=== PATIENT | male | born 1965 ===

== ENCOUNTER 2020-07-27 06:29 | Outpatient (REF) | payer OTHER, SELFPAY ==
[2020-07-27 12:56] LABS: Alanine Aminotransferase 30 U/L (0-40); Anion Gap 15 (12-20); Aspartate Amino Transferase 25 U/L (5-37); Blood Urea Nitrogen 14 mg/dL (9-16); Calcium 9.5 mg/dL (8.4-10.2); Carbon Dioxide 28 mmol/L (22-29); Chloride 103 mmol/L (96-108); Cholesterol 111 mg/dL; Estimated Glomerular Filt Rate > 60; Glucose Fasting 108 mg/dL (60-99); HDL Cholesterol 45 mg/dL; LDL Cholesterol Calculated 53 mg/dl; Potassium 4.5 mmol/l (3.3-5.1); Sodium 141 mmol/L (135-145); Triglycerides 68 mg/dL
[2020-07-31 19:18] LABS: Calcium, Ionized 5.3 mg/dL (4.8-5.6)
== END 2020-07-27 06:30 | disposition home or self-care (01) ==
LOC: HO.HMGCLDS 06:29
PROVIDERS: PCP Internal Medicine; Visit Provider Internal Medicine
DX: I25.10 Atherosclerotic heart disease of native coronary artery without angina pectoris (principal); Z00.01 Encounter for general adult medical examination with abnormal findings; I10 Essential (primary) hypertension; E11.9 Type 2 diabetes mellitus without complications; E83.52 Hypercalcemia
CPT/HCPCS: 80048; 80061; 82330; 84450; 84460

== ENCOUNTER → 2020-08-11 09:20 | Outpatient (BNVA) | payer OTHER, SELFPAY | PROVIDERS: PCP Internal Medicine; Referring Provider Internal Medicine; Visit Provider Hospitalist | DX: J44.9 Chronic obstructive pulmonary disease, unspecified (principal); R91.1 Solitary pulmonary nodule; K21.9 Gastro-esophageal reflux disease without esophagitis; F51.01 Primary insomnia; Z79.899 Other long term (current) drug therapy | CPT/HCPCS: 99212 ==

== ENCOUNTER 2020-11-21 06:45 | Outpatient (REF) | payer OTHER, SELFPAY ==
[2020-11-21 07:51] LABS: Alanine Aminotransferase 18 U/L (0-40); Anion Gap 11 (12-20); Aspartate Amino Transferase 19 U/L (5-37); Blood Urea Nitrogen 14 mg/dL (9-16); Calcium 9.6 mg/dL (8.4-10.2); Carbon Dioxide 27 mmol/L (22-29); Chloride 105 mmol/L (96-108); Cholesterol 132 mg/dL; Estimated Glomerular Filt Rate > 60; Glucose Fasting 106 mg/dL (60-99); HDL Cholesterol 50 mg/dL; LDL Cholesterol Calculated 68 mg/dl; Potassium 4.3 mmol/L (3.3-5.1); Sodium 139 mmol/L (135-145); Triglycerides 70 mg/dL
[2020-11-21 07:52] LABS: Creatinine Urine 201.67 mg/dL; Microalbum/Creatinine Ratio Ur 22.3 ug/mg cr
[2020-11-21 08:51] LABS: Estimated Average Glucose 131 mg/dL; Hemoglobin A1c % 6.2 %
== END 2020-11-21 06:46 | disposition home or self-care (01) ==
LOC: HO.LAB 06:45
PROVIDERS: PCP Internal Medicine; Visit Provider Internal Medicine
DX: E78.5 Hyperlipidemia, unspecified (principal); E11.9 Type 2 diabetes mellitus without complications; I10 Essential (primary) hypertension
CPT/HCPCS: 36415; 80048; 80061; 82043; 83036; 84450; 84460

== ENCOUNTER 2020-11-27 06:23 | Outpatient (REF) | payer OTHER, SELFPAY ==
--- NOTE | 2020-11-27 06:45 | ECG_ITS ---
Test Reason : CHRONIC SIMPLE BRONC Blood Pressure : / mmHG Vent. Rate : 059 BPM Atrial Rate : 059 BPM P-R Int : 128 ms QRS Dur : 114 ms QT Int : 408 ms P-R-T Axes : 050 -14 030 degrees QTc Int : 403 ms Sinus bradycardia Incomplete right bundle branch block Borderline ECG When compared with ECG of 31-DEC-2016 06:38, No significant change was found Referred By: Chloe Garrison Electronically Signed By:Guillaume Rodas
[2020-11-27 07:07] LABS: MANUAL DIFF FLAG NO
[2020-11-27 07:14] LABS: Basophils Absolute Auto 0.1 X10*3/uL (0.0-0.2); Basophils Percent Auto 0.7 % (0-2); Eosinophils Absolute Auto 0.3 X10*3/uL (0.0-0.4); Eosinophils Percent Auto 4.2 % (0-4); Hematocrit 45.4 % (42-52); Hemoglobin 14.9 g/dl (14.0-18.0); Imm Gran Abs Auto 0.02 X10*3/uL (0.00-0.03); Imm Gran Pct Auto 0.3 % (0.0-0.4); Lymphocytes Absolute Auto 2.5 X10*3/uL (1.2-4.9); Lymphocytes Percent Auto 33.6 % (20-40); Mean Corpuscular HGB Conc 32.8 g/dl (31.0-36.0); Mean Corpuscular Hemoglobin 29.7 pg (27.0-33.0); Mean Corpuscular Volume 90.4 fL (80-98); Mean Platelet Volume 11.5 fL (9.4-12.4); Monocytes Absolute Auto 0.6 X10*3/uL (0.1-1.2); Monocytes Percent Auto 8.4 % (2-11); Neutrophils Absolute Auto 3.9 X10*3/uL (2.0-8.3); Neutrophils Percent Auto 52.8 % (45-73); Platelet Count 225 X10*3/uL (160-400); Red Blood Count 5.02 X10*6/uL (4.60-5.80); Red Cell Distribution Width 13.3 % (11.0-16.0); White Blood Count 7.3 X10*3/uL (4.8-10.8)
[2020-11-27 07:23] LABS: INTERNATIONAL NORM RATIO 0.9 (0.9-1.1); Prothrombin Time 10.6 SEC (10.8-13.0)
== END 2020-11-27 06:24 | disposition home or self-care (01) ==
LOC: HO.LAB 06:23
PROVIDERS: PCP Internal Medicine; Visit Provider Internal Medicine
DX: Z01.818 Encounter for other preprocedural examination (principal); J41.0 Simple chronic bronchitis; I25.10 Atherosclerotic heart disease of native coronary artery without angina pectoris; E11.9 Type 2 diabetes mellitus without complications; I10 Essential (primary) hypertension
CPT/HCPCS: 36415; 85025; 85610; 93005

== ENCOUNTER → 2021-01-19 08:48 | Outpatient (BNVA) | payer OTHER, SELFPAY | PROVIDERS: PCP Internal Medicine; Visit Provider Hospitalist | DX: J41.0 Simple chronic bronchitis (principal); R91.8 Other nonspecific abnormal finding of lung field; F51.01 Primary insomnia; K21.9 Gastro-esophageal reflux disease without esophagitis | CPT/HCPCS: 99212 ==

== ENCOUNTER 2021-01-24 13:13 | Inpatient (IN) | payer OTHER, SELFPAY ==
--- NOTE | ~2021-01-24 | CT_ITS ---
EXAMINATION: CT ABDOMEN AND PELVIS WITHOUT CONTRAST CLINICAL INFORMATION: Upper abdominal pain, acute renal failure COMPARISON: None TECHNIQUE: Multidetector volumetric imaging was performed from the superior aspect of the liver through the pubic symphysis. Sagittal and coronal reformatted images were obtained on the technologist's workstation. This CT examination was performed using dose optimization techniques as appropriate, variously including the following: *Automated exposure control *Adjustment of mA and/or kV according to patient size (this includes techniques or standardized protocols for targeted exams where dose is matched to indication/reason for exam; i.e. extremities or head) *Use of iterative reconstruction technique DLP: 618 mGy-cm FINDINGS: LUNG BASES: The visualized lung bases are unremarkable. LIVER, GALLBLADDER, AND BILIARY TREE: The liver is normal in size, shape, and attenuation. No focal hepatic lesion or biliary ductal dilatation is present. The gallbladder is unremarkable with no evidence of radiopaque gallstones, gallbladder wall thickening, or obvious pericholecystic inflammatory changes. PANCREAS: Unremarkable. SPLEEN: Unremarkable. ADRENAL GLANDS: Stable 1 cm fat-containing lesion in the left adrenal gland that likely represents a myelolipoma. Normal right adrenal gland. KIDNEYS AND URETERS: The kidneys are normal in size, shape, and attenuation. No hydronephrosis, hydroureter, or calculi seen. No perinephric stranding. BLADDER: Unremarkable. GASTROINTESTINAL TRACT: The small and large bowel are unremarkable. The appendix is unremarkable. ABDOMINAL WALL: Small bilateral fat-containing inguinal hernias. LYMPH NODES: Normal. VASCULAR: Normal caliber of the abdominal aorta. Scattered atherosclerotic calcifications. PELVIC VISCERA: Unremarkable. OSSEOUS STRUCTURES: No acute or suspicious osseous abnormality. Redemonstration of compression fracture at the L1 vertebral body with interval healing. There is an intervertebral disc spacer at L5-S1. Mild multilevel degenerative changes of the spine. CT/CT abdomen pelvis wo con IMPRESSION: No acute intra-abdominal findings. Normal noncontrast appearance of the bilateral kidneys. No renal or ureteral calculi. No hydronephrosis. Redemonstration of left adrenal myelolipoma, unchanged. Redemonstration of compression fracture of the body of L1 with interval healing.
[2021-01-24 13:18] VITALS: BP 108/67; PULSE 93; RESP 18; TEMP 36.6; O2SAT 99; BMI 30.7
[2021-01-24 15:19] LABS: MANUAL DIFF FLAG NO
[2021-01-24 15:23] LABS: Basophils Percent Auto 0.3 % (0-2); Eosinophils Absolute Auto 0.2 X10*3/uL (0.0-0.4); Eosinophils Percent Auto 1.4 % (0-4); Hematocrit 41.7 % (42-52); Hemoglobin 13.6 g/dl (14.0-18.0); Imm Gran Abs Auto 0.04 X10*3/uL (0.00-0.03); Imm Gran Pct Auto 0.3 % (0.0-0.4); Lymphocytes Absolute Auto 2.3 X10*3/uL (1.2-4.9); Lymphocytes Percent Auto 19.9 % (20-40); Mean Corpuscular HGB Conc 32.6 g/dl (31.0-36.0); Mean Corpuscular Hemoglobin 29.6 pg (27.0-33.0); Mean Corpuscular Volume 90.7 fL (80-98); Mean Platelet Volume 10.6 fL (9.4-12.4); Monocytes Absolute Auto 1.1 X10*3/uL (0.1-1.2); Monocytes Percent Auto 9.2 % (2-11); Neutrophils Percent Auto 68.9 % (45-73); Platelet Count 241 X10*3/uL (160-400); Red Cell Distribution Width 14.2 % (11.0-16.0); White Blood Count 11.7 X10*3/uL (4.8-10.8)
[2021-01-24 15:44] LABS: Anion Gap 15 (12-20); Blood Urea Nitrogen 26 mg/dL (9-16); Calcium 10.4 mg/dL (8.4-10.2); Carbon Dioxide 24 mmol/L (22-29); Chloride 103 mmol/L (96-108); Creatinine Clr Calc Pharmacy 39.2; Estimated Glomerular Filt Rate 31; Glucose Random 95 mg/dL (60-115); Potassium 4.3 mmol/L (3.3-5.1); Sodium 138 mmol/L (135-145)
--- NOTE | 2021-01-24 16:04 | ED.DIZZY ---
HPI - Dizziness General Chief Complaint: Dizziness Stated Complaint: low blood pressure Time Seen by Provider: 01/24/21 16:04 Source: patient Mode of arrival: ambulatory Limitations: no limitations History of Present Illness HPI Narrative: Patient's history of coronary artery disease diabetes mellitus hypertension COPD sleep apnea been feeling lightheaded since yesterday switched on standing had to sit down to get better checked his blood pressure today was 80/60 also patient noticed slight discomfort in the right upper abdomen and right lower chest for last 2- 3 days no nausea no vomiting no diarrhea patient denies any chest pain no significant shortness of breath no cough no diaphoresis also for last few days noticed concentrated urine. No dysuria no flank pain patient not taking any NSAID no new medications patient denies any vertigo no disequilibrium no focal deficits no significant headache no fever or chills patient already received 2 doses of COVID vaccine 2 months ago patient had acute renal failure in 05/11 when he had left ankle Fx and Surgery but recovered completely never followed up with any shop mechanic Related Data Home Medications Medication Instructions Recorded Confirmed albuterol sulfate mg INHALATION Q6H PRN 08/02/20 01/19/21 amlodipine 10 mg tablet 10 mg PO BEDTIME 08/02/20 01/24/21 aspirin 325 mg tablet,delayed 325 mg PO DAILY 08/02/20 01/24/21 release blood sugar diagnostic #10 ea 08/02/20 11/30/20 cetirizine 10 mg tablet 10 mg PO DAILY 08/02/20 01/24/21 hydrochlorothiazide 25 mg tablet 25 mg PO DAILY 08/02/20 01/24/21 metoprolol succinate 100 mg 50 mg PO DAILY 08/02/20 01/24/21 tablet,extended release 24 hr rosuvastatin 40 mg tablet 40 mg PO DAILY 08/02/20 01/24/21 dulaglutide 0.75 mg/0.5 mL 1.5 mg SUBCUT QWEEK 01/19/21 01/24/21 subcutaneous pen injector hydralazine 10 mg tablet 10 mg PO BID 01/19/21 01/24/21 sitagliptin 100 mg tablet 100 mg PO DAILY 01/19/21 01/24/21 Previous Rx's Medication Instructions Recorded lisinopril 40 mg tablet 40 mg PO DAILY #90 tab 11/28/20 omeprazole 20 mg capsule,delayed 20 mg PO DAILY #90 cap 11/28/20 release umeclidinium 62.5 mcg/actuation 1 inh INHALATION DAILY #30 cap 01/03/21 blister powder for inhalation albuterol sulfate 90 mcg/actuation 2 puff PO Q4H PRN #18 g 01/10/21 aerosol inhaler metformin 1,000 mg tablet 1,000 mg PO BID #180 tab 01/11/21 Allergies Allergy/AdvReac Type Severity Reaction Status Date / Time No Known Allergies Allergy Verified 01/19/21 09:12 Review of Systems Review of Systems: Constitutional : No Weight loss, No Fever, No Chills ENT/Mouth : No sore throat, No Rhinorrhea Eyes: No Eye Pain, No Swelling Cardiovascular : No Chest Pain, no palpitations Respiratory : No Cough, No Sputum, no shortness of breath Gastrointestinal : no Nausea, No Vomiting, No Diarrhea, No abdominal Pain, no black stools Genitourinary : No Dysuria, No Urinary Frequency Musculoskeletal : No joint pain, No Myalgias, No Joint Swelling Skin : No Skin Lesions, No rash Neuro : +Weakness, No Numbness, + Dizziness, No Headache Psych : No Anxiety/Panic, No Depression Heme/Lymph: No Bruising, No Lymphadenopathy Endocrine : No Polyuria, No Polydipsia All other systems reviewed and are negative [facility] Past Medical History Medical History Cervical radiculopathy due to degenerative joint disease of spine Compression fracture of lumbar spine, non-traumatic COPD (chronic obstructive pulmonary disease) Coronary artery disease Dyslipidemia Essential hypertension GERD (gastroesophageal reflux disease) Insomnia Obstructive sleep apnea Primary insomnia Pulmonary nodule seen on imaging study Pulmonary nodules Status post open reduction and internal fixation (ORIF) of fracture Trimalleolar fracture of left ankle Type 2 diabetes mellitus without complication, without long-term current use of insulin Surgical History History of surgery Family History Family History Father ETOH abuse Mother CVD (cardiovascular disease) Hx of CABG Brother No problems noted. Brother No problems noted. Sister No problems noted. Sister No problems noted. Sister No problems noted. Sister No problems noted. Sister No problems noted. Son No problems noted. Son No problems noted. Son No problems noted. Son No problems noted. Son No problems noted. Social History Social History Alcohol intake: never Smoking Status: Never smoker Use of substances other than those prescribed or required for medical reasons: No Advance Directives: No Advance Directives Information Provided: No Physical Exam Vital Signs: Vital Signs: Last Vital Signs Temp 98 F 01/24/21 22:43 Pulse 76 01/24/21 22:43 Resp 16 01/24/21 22:43 BP 127/80 01/24/21 22:43 Pulse Ox 97 01/24/21 22:43 Body Mass Index 30.7 Appearance: Alert. Oriented X3. No acute distress. Eyes: PERRLA, No Nystagmus ENT: Pharynx normal. Oral Mucosa moist Neck: Normal inspection. Neck supple. CVS: Normal heart rate and rhythm. Pulses normal. Respiratory: No respiratory distress. Equal air entry bilateral, no wheezing/rales/rhonchi Abdomen: Soft and nontender. Bowel sounds are present, no mass palpable, no CVA tenderness Skin: Skin warm and dry. Normal skin color. Normal skin turgor. Extremities: No lower extremity edema. No calf tenderness Neuro: Oriented X 3. No motor deficit. No sensory deficit.No cerebellar signs , cranial nerves II-XII intact MDM - Dizziness MDM Narrative Medical decision making narrative: Patient with acute dizziness so for workup showed increased creatinine to 2.19 from baseline of 0.96 in 11/21/2020. Per patient he had similar problem few years ago and corrected of its own. Has not seen any shop mechanic. Etiology is not very clear will do the CT scan abdomen and further workup Lab Data Attestation: I reviewed the patient's lab results. Result diagrams: 01/24/21 15:12 01/24/21 15:12 Labs: Lab Results 01/24/21 01/24/21 01/24/21 Range/Units 15:12 15:12 17:14 WBC 11.7 H (4.8-10.8) X10*3/uL RBC 4.60 (4.60-5.80) X10*6/uL Hgb 13.6 L (14.0-18.0) g/dl Hct 41.7 L (42-52) % MCV 90.7 (80-98) fL MCH 29.6 (27.0-33.0) pg MCHC 32.6 (31.0-36.0) g/dl RDW 14.2 (11.0-16.0) % Plt Count 241 (160-400) X10*3/uL MPV 10.6 (9.4-12.4) fL Immature Gran % (Auto) 0.3 (0.0-0.4) % Neut % (Auto) 68.9 (45-73) % Lymph % (Auto) 19.9 L (20-40) % [place] % (Auto) 9.2 (2-11) % Eos % (Auto) 1.4 (0-4) % Baso % (Auto) 0.3 (0-2) % Lymph # (Auto) 2.3 (1.2-4.9) X10*3/uL [place] # (Auto) 1.1 (0.1-1.2) X10*3/uL Eos # (Auto) 0.2 (0.0-0.4) X10*3/uL Baso # (Auto) 0.0 (0.0-0.2) X10*3/uL Abs Immat Gran (auto) 0.04 H (0.00-0.03) X10*3/uL Absolute Neuts (auto) 8.0 (2.0-8.3) X10*3/uL Absolute Nucleated RBC 0.000 (0.0-0.012) X10*3/uL Nucleated RBC % (auto) 0.0 (0.0-0.2) /100WBC PT 11.5 (10.8-13.0) SEC INR 1.0 (0.9-1.1) APTT 31.7 (24.1-38.0) SEC Sodium 138 (135-145) mmol/L Potassium 4.3 (3.3-5.1) mmol/L Chloride 103 (96-108) mmol/L Carbon Dioxide 24 (22-29) mmol/L Anion Gap 15 (12-20) BUN 26 H D (9-16) mg/dL Creatinine 2.19 H (0.5-1.4) mg/dL Estim Creat Clear Calc 39.2 Estimated GFR 31 Random Glucose 95 (60-115) mg/dL Calcium 10.4 H D (8.4-10.2) mg/dL Magnesium 2.1 (1.6-2.6) mg/dL Total Bilirubin 0.5 (0.0-1.0) mg/dL Direct Bilirubin 0.2 (0.0-0.5) mg/dL AST 25 (5-37) U/L ALT 21 (0-40) U/L Alkaline Phosphatase 70 (39-117) U/L Troponin I High Sens (<3.5-35.0) ng/L Total Protein 7.3 (6.5-8.0) g/dL Albumin 4.5 (3.5-5.0) g/dL Lipase 43 (8-78) U/L Urine Color Urine Appearance Urine pH (5.0-8.0) Ur Specific [place] (1.005-1.025) Urine Protein (NEG-TRACE) MG/DL Urine Glucose (UA) (NEG) MG/DL Urine Ketones (NEG) MG/DL Urine Blood (NEG) Urine Nitrite (NEG) Ur Leukocyte Esterase (NEG) COVID-19 ([facility]) (Negative) COVID-19 Clin Com 01/24/21 01/24/21 01/24/21 Range/Units 17:14 17:14 22:55 WBC (4.8-10.8) X10*3/uL RBC (4.60-5.80) X10*6/uL Hgb (14.0-18.0) g/dl Hct (42-52) % MCV (80-98) fL MCH (27.0-33.0) pg MCHC (31.0-36.0) g/dl RDW (11.0-16.0) % Plt Count (160-400) X10*3/uL MPV (9.4-12.4) fL Immature Gran % (Auto) (0.0-0.4) % Neut % (Auto) (45-73) % Lymph % (Auto) (20-40) % [place] % (Auto) (2-11) % Eos % (Auto) (0-4) % Baso % (Auto) (0-2) % Lymph # (Auto) (1.2-4.9) X10*3/uL [place] # (Auto) (0.1-1.2) X10*3/uL Eos # (Auto) (0.0-0.4) X10*3/uL Baso # (Auto) (0.0-0.2) X10*3/uL Abs Immat Gran (auto) (0.00-0.03) X10*3/uL Absolute Neuts (auto) (2.0-8.3) X10*3/uL Absolute Nucleated RBC (0.0-0.012) X10*3/uL Nucleated RBC % (auto) (0.0-0.2) /100WBC PT (10.8-13.0) SEC INR (0.9-1.1) APTT (24.1-38.0) SEC Sodium (135-145) mmol/L Potassium (3.3-5.1) mmol/L Chloride (96-108) mmol/L Carbon Dioxide (22-29) mmol/L Anion Gap (12-20) BUN (9-16) mg/dL Creatinine (0.5-1.4) mg/dL Estim Creat Clear Calc Estimated GFR Random Glucose (60-115) mg/dL Calcium (8.4-10.2) mg/dL Magnesium (1.6-2.6) mg/dL Total Bilirubin (0.0-1.0) mg/dL Direct Bilirubin (0.0-0.5) mg/dL AST (5-37) U/L ALT (0-40) U/L Alkaline Phosphatase (39-117) U/L Troponin I High Sens 8.3 (<3.5-35.0) ng/L Total Protein (6.5-8.0) g/dL Albumin (3.5-5.0) g/dL Lipase (8-78) U/L Urine Color YELLOW Urine Appearance CLEAR Urine pH 6.0 (5.0-8.0) Ur Specific [place] 1.025 (1.005-1.025) Urine Protein NEG (NEG-TRACE) MG/DL Urine Glucose (UA) NEG (NEG) MG/DL Urine Ketones 5 (NEG) MG/DL Urine Blood TRACE (NEG) Urine Nitrite NEG (NEG) Ur Leukocyte Esterase NEG (NEG) COVID-19 ([facility]) Negative (Negative) COVID-19 Clin Com See Note Discharge Plan Discharge Clinical Impression: Near syncope Acute renal failure Qualifiers: Acute renal failure type: with acute tubular necrosis Qualified Code(s): N17.0 - Acute kidney failure with tubular necrosis Patient Disposition: Admitted As Inpatient
--- NOTE | 2021-01-24 16:11 | ECG_ITS ---
Test Reason : DIZZINESS Blood Pressure : / mmHG Vent. Rate : 078 BPM Atrial Rate : 078 BPM P-R Int : 120 ms QRS Dur : 102 ms QT Int : 390 ms P-R-T Axes : 064 -16 017 degrees QTc Int : 444 ms Sinus rhythm with Premature atrial complexes Incomplete right bundle branch block Borderline ECG When compared with ECG of 27-NOV-2020 06:51, Premature atrial complexes are now Present Referred By: Matheus Geronimo Electronically Signed By:MERNA MUSE
[2021-01-24 16:32] LABS: Alanine Aminotransferase 21 U/L (0-40); Albumin Level 4.5 g/dL (3.5-5.0); Alkaline Phosphatase 70 U/L (39-117); Aspartate Amino Transferase 25 U/L (5-37); Bilirubin Direct 0.2 mg/dL (0.0-0.5); Bilirubin Total 0.5 mg/dL (0.0-1.0); Lipase 43 U/L (8-78); Magnesium 2.1 mg/dL (1.6-2.6); Total Protein 7.3 g/dL (6.5-8.0)
[2021-01-24] MEDS: 0.9 % Sodium Chloride 1,000 ML 999 ML IVCONT (17:00)
[2021-01-24 17:26] LABS: Prothrombin Time 11.5 SEC (10.8-13.0)
[2021-01-24 17:29] LABS: Partial Thromboplastin Time 31.7 SEC (24.1-38.0)
[2021-01-24 17:47] LABS: COVID-19 Test Negative (Negative); IDNOW Serial# 9DD0AD1C
[2021-01-24 17:48] LABS: Troponin-I High Sensitivity 8.3 ng/L (<3.5-35.0)
[2021-01-24 19:01] VITALS: BP 140/78; PULSE 76; RESP 20; TEMP 36.8; O2SAT 98
[2021-01-24 22:43] VITALS: BP 127/80; PULSE 76; RESP 16; TEMP 36.6; O2SAT 97
[2021-01-24 23:03] LABS: Glucose Urine UA NEG (NEG); Leukocyte Esterase Urine NEG (NEG); Nitrite Urine NEG (NEG); Specific Gravity - Urine 1.025 (1.005-1.025); Urine Blood TRACE (NEG); Urine Ketones 5 MG/DL (NEG); Urine Protein NEG (NEG-TRACE)
[2021-01-24 23:07] LABS: Appearance Urine CLEAR; Color Urine YELLOW
[2021-01-24 23:11] LABS: Bacteria Urine TRACE /LPF; RBC Urine 0-2 /HPF (0); Squamous Epithelial Cell Urine TRACE /LPF; WBC Urine 0-2 /HPF (0-4)
--- NOTE | 2021-01-24 23:13 | PM.IMHP ---
History of Present Illness Date of Service: 01/24/21 Chief Complaint: dizziness, low bp This is a 55-year-old male with past medical history of hypertension, COPD, CAD, HLD, GERD, who presents to the hospital with complaints of dizziness, and low blood pressure. Patient reports that he has been feeling dizzy for the past 2 days, with no syncope, or presyncopal episode or symptoms. He reports that he checked his blood pressure today and found to be 80/60 and therefore he came to the hospital. He also had hematuria for the past few days although today cleared out. He is complaining of urinary urgency, dysuria, as well as frequency. He reports that he has not had any good appetite for the past few days, denies any fever chills, he has had shortness of breath that is chronic with no cough or sputum production. He has no abdominal pain nausea or vomiting, no diarrhea constipation. No lower extremity edema. Denies using any NSAIDs. On arrival to the ED hemodynamically stable with no significant abnormal vitals. His blood pressure on arrival was 108/67, on my interview was 140/78. Labs are significant for WBC count of 11.7, hemoglobin of 13.6, hematocrit 41.7, BUN of 26, creatinine of 2.19 with baseline around 0.96, tropes negative, UA negative, COVID-[address] abdomen shows no acute intra-abdominal findings, normal noncontrast appearance of the bilateral kidneys no renal ureteral calculi. No hydronephrosis. Patient will be admitted for PRAMOD Past medical history as below Review of Systems Review of Systems: Yes all other systems are reviewed and are negative [facility] Medical History Cervical radiculopathy due to degenerative joint disease of spine Compression fracture of lumbar spine, non-traumatic COPD (chronic obstructive pulmonary disease) Coronary artery disease Dyslipidemia Essential hypertension GERD (gastroesophageal reflux disease) Insomnia Obstructive sleep apnea Primary insomnia Pulmonary nodule seen on imaging study Pulmonary nodules Status post open reduction and internal fixation (ORIF) of fracture Trimalleolar fracture of left ankle Type 2 diabetes mellitus without complication, without long-term current use of insulin Family History Father ETOH abuse Mother CVD (cardiovascular disease) Hx of CABG Brother No problems noted. Brother No problems noted. Sister No problems noted. Sister No problems noted. Sister No problems noted. Sister No problems noted. Sister No problems noted. Son No problems noted. Son No problems noted. Son No problems noted. Son No problems noted. Son No problems noted. Surgical History History of surgery Social History Household Members: Spouse Housing: Apartment Do you presently have visiting nurse or other home services: No Alcohol intake: never Smoking Status: Never smoker Use of substances other than those prescribed or required for medical reasons: No Have you been hit, kicked, punched, or otherwise hurt by someone within the past year? If so, by whom?: No Do you feel safe in your current relationship?: Yes Is there a partner from a previous relationship who is making you feel unsafe now?: No Are you made to feel afraid or neglected: No Advance Directives: No Advance Directives Information Provided: No Do you have thoughts of harming others: None Do you have a plan to hurt others: No Plan Recently lost weight without trying: No Nutrition Risks: No Nutritional Risk Poor oral hygiene: No Meds Allergies Allergy/AdvReac Type Severity Reaction Status Date / Time No Known Allergies Allergy Verified 01/19/21 09:12 Home Medications Medication Instructions Recorded Confirmed Last Taken Type albuterol sulfate mg INHALATION Q6H PRN 08/02/20 01/19/21 Unknown History amlodipine 10 mg tablet 10 mg PO BEDTIME 08/02/20 01/24/21 Unknown History aspirin 325 mg tablet,delayed 325 mg PO DAILY 08/02/20 01/24/21 Unknown History release blood sugar diagnostic #10 ea 08/02/20 11/30/20 Unknown History cetirizine 10 mg tablet 10 mg PO DAILY 08/02/20 01/24/21 Unknown History hydrochlorothiazide 25 mg tablet 25 mg PO DAILY 08/02/20 01/24/21 Unknown History metoprolol succinate 100 mg 50 mg PO DAILY 08/02/20 01/24/21 Unknown History tablet,extended release 24 hr rosuvastatin 40 mg tablet 40 mg PO DAILY 08/02/20 01/24/21 Unknown History dulaglutide 0.75 mg/0.5 mL 1.5 mg SUBCUT QWEEK 01/19/21 01/24/21 Unknown History subcutaneous pen injector hydralazine 10 mg tablet 10 mg PO BID 01/19/21 01/24/21 Unknown History sitagliptin 100 mg tablet 100 mg PO DAILY 01/19/21 01/24/21 Unknown History Physical Exam Vital Signs and Narrative: Vital Signs: Last Vital Signs Temp 98 F 01/24/21 22:43 Pulse 76 01/24/21 22:43 Resp 16 01/24/21 22:43 BP 127/80 01/24/21 22:43 Pulse Ox 97 01/24/21 22:43 Body Mass Index 30.7 Const: General: cooperative and no acute distress Orientation/consciousness: patient oriented x3 Eyes: General: appearance normal, both eyes and all related structures Resp: Effort & Inspection: normal respiratory effort and able to speak in complete sentences Cardio: Rate: regular rate Rhythm: regular rhythm GI: Palpation (GI): Soft to palpation Auscultation: normal bowel sounds Skin: General skin exam: no rashes or lesions noted Neuro: General: patient oriented x3 Cognition (Neuro): normal cognition Extrem: General: Yes normal to inspection and Yes no pedal edema Results Labs CBC and Chem 7: 01/25/21 04:01 01/25/21 04:01 Labs: Laboratory Results - last 24 hr 01/24/21 01/24/21 01/24/21 15:12 15:12 17:14 MCV 90.7 MCH 29.6 MCHC 32.6 RDW 14.2 Plt Count 241 MPV 10.6 Immature Gran % (Auto) 0.3 Neut % (Auto) 68.9 Lymph % (Auto) 19.9 L [place] % (Auto) 9.2 Eos % (Auto) 1.4 Baso % (Auto) 0.3 Lymph # (Auto) 2.3 [place] # (Auto) 1.1 Eos # (Auto) 0.2 Baso # (Auto) 0.0 Abs Immat Gran (auto) 0.04 H Absolute Neuts (auto) 8.0 Absolute Nucleated RBC 0.000 Nucleated RBC % (auto) 0.0 PT 11.5 INR 1.0 APTT 31.7 Anion Gap 15 Estim Creat Clear Calc 39.2 Estimated GFR 31 Random Glucose 95 Calcium 10.4 H D Magnesium 2.1 Total Bilirubin 0.5 Direct Bilirubin 0.2 AST 25 ALT 21 Alkaline Phosphatase 70 Troponin I High Sens Total Protein 7.3 Albumin 4.5 Lipase 43 Urine Color Urine Appearance Urine pH Ur Specific [place] Urine Protein Urine Glucose (UA) Urine Ketones Urine Blood Urine Nitrite Ur Leukocyte Esterase Urine RBC Urine WBC Ur Squamous Epith Cells Urine Bacteria COVID-19 ([facility]) COVID-19 Clin Com 01/24/21 01/24/21 01/24/21 17:14 17:14 22:55 MCV MCH MCHC RDW Plt Count MPV Immature Gran % (Auto) Neut % (Auto) Lymph % (Auto) [place] % (Auto) Eos % (Auto) Baso % (Auto) Lymph # (Auto) [place] # (Auto) Eos # (Auto) Baso # (Auto) Abs Immat Gran (auto) Absolute Neuts (auto) Absolute Nucleated RBC Nucleated RBC % (auto) PT INR APTT Anion Gap Estim Creat Clear Calc Estimated GFR Random Glucose Calcium Magnesium Total Bilirubin Direct Bilirubin AST ALT Alkaline Phosphatase Troponin I High Sens 8.3 Total Protein Albumin Lipase Urine Color YELLOW Urine Appearance CLEAR Urine pH 6.0 Ur Specific [place] 1.025 Urine Protein NEG Urine Glucose (UA) NEG Urine Ketones 5 Urine Blood TRACE Urine Nitrite NEG Ur Leukocyte Esterase NEG Urine RBC 0-2 Urine WBC 0-2 Ur Squamous Epith Cells TRACE Urine Bacteria TRACE COVID-19 ([facility]) Negative COVID-19 Clin Com See Note Imaging Radiologist's Impressions: Impressions Abdomen/Pelvis CT 01/24/21 16:13 IMPRESSION: No acute intra-abdominal findings. Normal noncontrast appearance of the bilateral kidneys. No renal or ureteral calculi. No hydronephrosis. Redemonstration of left adrenal myelolipoma, unchanged. Redemonstration of compression fracture of the body of L1 with interval healing. Assessment and Plan (1) Acute renal failure: Qualifiers: Acute renal failure type: with acute tubular necrosis Qualified Code(s): N17.0 - Acute kidney failure with tubular necrosis Status: Acute (2) Dizziness: Status: Acute (3) Hypotension: Status: Acute This is a 55-year-old male with past medical history of diabetes, hypertension, CAD, HLD who presents to the hospital with complaints of dizziness, hypotension found to have PRAMOD # PRAMOD - most likely secondary to low oral intake and dehydration - UA negative for any UTI or hematuria - will start IV fluids - follow BMP # hypotension - normalized by the time he was seen in the ED - patient on multiple antihypertensives including amlodipine, hydralazine, lisinopril which is most likely contributed further to his hypotension - not due to sepsis and most likely due to dehydration and low oral intake -his blood pressure has normalized - will resume lisinopril as well as amlodipine, hold hydralazine, can consider stopping 1 of the agents on discharge # dizziness - most likely secondary to PRAMOD as well as hypotension - will order orthostatic vitals although less likely to be accurate patient received resuscitation fluids already # COPD - not in exacerbation - continue home inhalers # diabetes mellitus - will hold oral antihyperglycemics - place on low-dose sliding scale insulin - diabetic diet # CAD - continue aspirin, metoprolol DVT prophylaxis: Heparin subQ
[2021-01-24 23:48] VITALS: BP 126/72; PULSE 78; RESP 20; O2SAT 98
[2021-01-25] VITALS (15 sets, daily range): BP systolic 98–135; BP diastolic 56–83; PULSE 60–90; RESP 18–20; TEMP 35.9–37.1; O2SAT 96–98; BMI 30.5
--- NOTE | 2021-01-25 00:16 | PC.NURSE ---
Radha kern will call back for report.
[2021-01-25] MEDS: Heparin Sodium,Porcine 5,000 UNIT/ML VIAL 5000 UNIT SUBCUT (01:38)
[2021-01-25] MEDS: 0.9 % Sodium Chloride Flush 3 ML SYRINGE IVFLUSH ×3 (01:38→14:27)
[2021-01-25] MEDS: Lactated Ringers 1,000 ML 100 ML IVCONT (01:39)
[2021-01-25 02:19] LABS: B Type Natriuretic Peptide 11 pg/mL (<100)
[2021-01-25 04:47] LABS: MANUAL DIFF FLAG NO
[2021-01-25 04:50] LABS: Basophils Percent Auto 0.5 % (0-2); Eosinophils Absolute Auto 0.2 X10*3/uL (0.0-0.4); Eosinophils Percent Auto 2.9 % (0-4); Hematocrit 37.8 % (42-52); Hemoglobin 12.2 g/dl (14.0-18.0); Imm Gran Abs Auto 0.02 X10*3/uL (0.00-0.03); Imm Gran Pct Auto 0.3 % (0.0-0.4); Lymphocytes Absolute Auto 2.3 X10*3/uL (1.2-4.9); Lymphocytes Percent Auto 35.1 % (20-40); Mean Corpuscular HGB Conc 32.3 g/dl (31.0-36.0); Mean Corpuscular Hemoglobin 29.3 pg (27.0-33.0); Mean Corpuscular Volume 90.6 fL (80-98); Mean Platelet Volume 10.8 fL (9.4-12.4); Monocytes Absolute Auto 0.9 X10*3/uL (0.1-1.2); Monocytes Percent Auto 13.2 % (2-11); Neutrophils Absolute Auto 3.1 X10*3/uL (2.0-8.3); Platelet Count 206 X10*3/uL (160-400); Red Blood Count 4.17 X10*6/uL (4.60-5.80); Red Cell Distribution Width 14.3 % (11.0-16.0); White Blood Count 6.5 X10*3/uL (4.8-10.8)
[2021-01-25 05:15] LABS: Anion Gap 15 (12-20); Blood Urea Nitrogen 18 mg/dL (9-16); Calcium 9.8 mg/dL (8.4-10.2); Carbon Dioxide 25 mmol/L (22-29); Chloride 104 mmol/L (96-108); Creatinine Clr Calc Pharmacy 72.6; Estimated Glomerular Filt Rate > 60; Glucose Random 88 mg/dL (60-115); Potassium 3.7 mmol/L (3.3-5.1); Sodium 140 mmol/L (135-145)
[2021-01-25] MEDS: Omeprazole 20 MG CAPSULE.DR PO (06:21)
[2021-01-25 07:23] LABS: Glucose, Whole Blood 100 mg/dL (60-115)
[2021-01-25] MEDS: hydroCHLOROthiazide 25 MG TABLET PO (08:39)
[2021-01-25] MEDS: Loratadine 10 MG TABLET PO (08:39)
[2021-01-25] MEDS: lisinopriL 40 MG TABLET PO (08:39)
[2021-01-25] MEDS: Metoprolol Succinate ER 50 MG TAB.ER.24H PO (08:39)
[2021-01-25] MEDS: Aspirin Enteric Coated 325 MG TABLET.DR PO (08:39)
[2021-01-25 11:06] LABS: Glucose, Whole Blood 102 mg/dL (60-115)
--- NOTE | 2021-01-25 11:40 | MHC.CM.PN ---
CM met with patient and at the bedside who reports he is independent, drives and lives with his . Patient states his is HCP, copy requested. Discussed discharge plan, home no services. Patient has is own transport home. CM will continue to follow patient for discharge needs.
--- NOTE | 2021-01-25 15:36 | P.PNIM_ITS ---
Subjective Subjective Date of Service: 01/25/21 Interval History: the patient was seen and evaluated this morning Laying in bed, feels comfortable overall with no recurrence of the dizziness Kidney function improving Denies any fever, chills or shortness of breath No reported other overnight events. Systemic review: No fever, chills but generalized weakness No chest pain, palpitation No shortness of breath or coughing No abdominal pain, nausea or vomiting No urinary symptoms No any rash or wounds Physical Exam Vital Signs: Vital Signs: Last Vital Signs Temp 96.8 F 01/25/21 15:13 Pulse 60 01/25/21 15:13 Resp 20 01/25/21 15:13 BP 98/61 01/25/21 15:13 Pulse Ox 96 01/25/21 15:13 Body Mass Index 30.5 Const: Other: Constitutional : Alert, oriented, not in distress Neck : Normal inspection, Supple Cardiovascular : RRR, S1 S2, no lower extremity edema Respiratory : Good bilateral air entry, no crackles, wheezes or rhonchi Gastrointestinal: soft, lax, Normal bowel sounds, Non tender Skin : Warm/Dry, No rash Neurological : Alert & oriented x3, No focal deficit Objective Data Current Medications Generic Name Dose Route Start Last Admin Trade Name Freq PRN Reason Stop Dose Admin Acetaminophen 650 mg 01/25/21 00:58 Acetaminophen 325 Mg Tablet PO Q6H PRN Pain, Mild (Pain Scale 1-3) Albuterol Sulfate 2 puff 01/25/21 05:56 Albuterol Sulfate 90 Mcg 8 Gm Inhaler INHALE Q4H PRN for wheezing Amlodipine Besylate 5 mg 01/25/21 21:00 Amlodipine Besylate 5 Mg Tablet PO BEDTIME [facility] Protocol Aspirin 325 mg 01/25/21 09:00 01/25/21 08:39 Aspirin Enteric Coated 325 Mg Tablet. PO 325 mg DAILY [facility] Administration Docusate Sodium 100 mg 01/25/21 00:58 Docusate Sodium 100 Mg Capsule PO DAILY PRN Constipation Heparin Sodium (Porcine) 5,000 unit 01/25/21 02:00 01/25/21 14:27 Heparin Sodium,Porcine 5,000 Unit/Ml Vial SUBCUT Not Given Q12H [facility] Hydrochlorothiazide 25 mg 01/25/21 09:00 01/25/21 08:39 Hydrochlorothiazide 25 Mg Tablet PO 25 mg DAILY [facility] Administration Protocol Insulin Human Lispro 0 unit 01/25/21 07:30 01/25/21 11:09 Insulin Lispro 100 Unit/Ml 3 Ml Vial SUBCUT Not Given QIDACHS [facility] Protocol Lisinopril 40 mg 01/25/21 09:00 01/25/21 08:39 Lisinopril 40 Mg Tablet PO 40 mg DAILY [facility] Administration Protocol Loratadine 10 mg 01/25/21 09:00 01/25/21 08:39 Loratadine 10 Mg Tablet PO 10 mg DAILY [facility] Administration Metoprolol Succinate 50 mg 01/25/21 09:00 01/25/21 08:39 Metoprolol Succinate Er 50 Mg Tab.Er.24h PO 50 mg DAILY [facility] Administration Protocol Pt Own (Incruse 1 each 01/25/21 10:30 01/25/21 10:53 Ellipta 62.5mg) INHALE 1 each DAILY [facility] Administration Pt Own (Symbicort 2 each 01/25/21 20:00 160/4.5mcg) INHALE RBID [facility] Non-Formulary Medication 2 puff 01/25/21 21:00 Budesonide-Formoterol [Symbicort] INHALE BID [facility] Non-Formulary Medication 1 tab 01/26/21 09:00 Roflumilast [Daliresp] PO DAILY [facility] Omeprazole 20 mg 01/25/21 06:30 01/25/21 06:21 Omeprazole 20 Mg Capsule.Dr PO 20 mg DAILY@0630 [facility] Administration Ondansetron HCl 4 mg 01/25/21 00:58 Ondansetron Hcl 4 Mg/2 Ml Vial IVPUSH Q8H PRN Nausea and Vomiting Sodium Chloride 3 ml 01/25/21 00:58 01/25/21 14:27 0.9 % Sodium Chloride Flush 3 Ml Syringe IVFLUSH 3 ml QSHIFT [facility] Administration Zolpidem Tartrate 10 mg 01/25/21 21:00 Zolpidem Tartrate 5 Mg Tablet PO BEDTIME [facility] Labs CBC & Chem 7: 01/25/21 04:01 01/25/21 04:01 Assessment and Plan (1) Acute renal failure: Status: Acute (2) Dizziness: Status: Acute (3) Hypotension: Status: Acute Assessment and Plan: This is a 55-year-old male with past medical history of diabetes, hypertension, CAD, HLD who presents to the hospital with complaints of dizziness, hypotension found to have PRAMOD PRAMOD secondary to low oral intake and dehydration Improving To hold IV fluids follow BMP hypotension Improved Discontinue HCT, hydralazine, decrease amlodipine Continue rest of his home medications To check orthostatic vitals dizziness secondary to PRAMOD as well as hypotension Will monitor for risk of fall COPD not in exacerbation continue home inhalers diabetes mellitus will hold oral antihyperglycemics place on low-dose sliding scale insulin diabetic diet CAD continue aspirin, metoprolol DVT prophylaxis Heparin subQ
[2021-01-25 16:45] LABS: Glucose, Whole Blood 110 mg/dL (60-115)
[2021-01-25 20:29] LABS: Glucose, Whole Blood 128 mg/dL (60-115)
[2021-01-26] VITALS (8 sets, daily range): BP systolic 96–116; BP diastolic 57–74; PULSE 60–85; RESP 12–18; TEMP 36.1–36.9; O2SAT 95–98
[2021-01-26] MEDS: 0.9 % Sodium Chloride Flush 3 ML SYRINGE IVFLUSH ×2 (02:16→08:45)
[2021-01-26] MEDS: Omeprazole 20 MG CAPSULE.DR PO (05:45)
[2021-01-26 06:08] LABS: Hemoglobin 13.2 g/dl (14.0-18.0); Mean Corpuscular HGB Conc 32.2 g/dl (31.0-36.0); Mean Corpuscular Hemoglobin 29.5 pg (27.0-33.0); Mean Corpuscular Volume 91.5 fL (80-98); Mean Platelet Volume 10.9 fL (9.4-12.4); Platelet Count 223 X10*3/uL (160-400); Red Blood Count 4.48 X10*6/uL (4.60-5.80)
[2021-01-26 06:32] LABS: Anion Gap 16 (12-20); Blood Urea Nitrogen 21 mg/dL (9-16); Calcium 10.6 mg/dL (8.4-10.2); Carbon Dioxide 25 mmol/L (22-29); Chloride 103 mmol/L (96-108); Creatinine Clr Calc Pharmacy 76.5; Estimated Glomerular Filt Rate > 60; Glucose Random 105 mg/dL (60-115); Potassium 4.8 mmol/L (3.3-5.1); Sodium 139 mmol/L (135-145)
[2021-01-26 07:27] LABS: Glucose, Whole Blood 106 mg/dL (60-115)
[2021-01-26] MEDS: lisinopriL 40 MG TABLET PO (08:45)
[2021-01-26] MEDS: Metoprolol Succinate ER 50 MG TAB.ER.24H PO (08:45)
[2021-01-26] MEDS: Loratadine 10 MG TABLET PO (08:45)
[2021-01-26] MEDS: Aspirin Enteric Coated 325 MG TABLET.DR PO (08:45)
--- NOTE | 2021-01-26 10:18 | MHC.CM.PN ---
Male DX PRAMOD He is discharged today to home. No home services needed, or ordered. [facility] will follow up with [facility] assessment. He has private transportation to home.
[2021-01-26 11:18] LABS: Glucose, Whole Blood 116 mg/dL (60-115)
--- NOTE | 2021-01-26 12:06 | PM.DS ---
DS: Providers Provider Date of Service: 01/26/21 Date of admission: 01/24/21 22:46 Primary care physician: Chloe Garrison MD Consults: 01/25/21 01:29 Consult Respiratory Therapy Routine Reason for consultation: sleep apnea Has provider been notified: Yes DS: Diagnosis Discharge Diagnosis (1) Acute renal failure: Status: Acute (2) Dizziness: Status: Acute (3) Hypotension: Status: Acute (4) Near syncope: Status: Acute DS: Medications Discharge Medications Home Medications: Home Medications Medication Instructions Recorded Confirmed aspirin 325 mg tablet,delayed 325 mg PO DAILY 08/02/20 01/24/21 release blood sugar diagnostic #10 ea 08/02/20 11/30/20 cetirizine 10 mg tablet 10 mg PO DAILY 08/02/20 01/24/21 rosuvastatin 40 mg tablet 40 mg PO DAILY 08/02/20 01/24/21 dulaglutide 0.75 mg/0.5 mL 1.5 mg SUBCUT QWEEK 01/19/21 01/24/21 subcutaneous pen injector sitagliptin 100 mg tablet 100 mg PO DAILY 01/19/21 01/24/21 Daliresp 1 tab PO DAILY 01/25/21 01/25/21 budesonide-formoterol [Symbicort] 2 puff INHALATION BID 01/25/21 01/25/21 budesonide-formoterol [Symbicort] 2 puff PO BID 01/25/21 01/25/21 zolpidem 1 tab PO BEDTIME 01/25/21 01/25/21 Previous Rx's Medication Instructions Recorded lisinopril 40 mg tablet 40 mg PO DAILY #90 tab 11/28/20 omeprazole 20 mg capsule,delayed 20 mg PO DAILY #90 cap 11/28/20 release umeclidinium 62.5 mcg/actuation 1 inh INHALATION DAILY #30 cap 01/03/21 blister powder for inhalation albuterol sulfate 90 mcg/actuation 2 puff PO Q4H PRN #18 g 01/10/21 aerosol inhaler metformin 1,000 mg tablet 1,000 mg PO BID #180 tab 01/11/21 metoprolol succinate 50 mg PO DAILY #0 tab 01/26/21 DS: Summary Hospital Course Hospital Course: Admission note HPI This is a 55-year-old male with past medical history of hypertension, COPD, CAD, HLD, GERD, who presents to the hospital with complaints of dizziness, and low blood pressure. Patient reports that he has been feeling dizzy for the past 2 days, with no syncope, or presyncopal episode or symptoms. He reports that he checked his blood pressure today and found to be 80/60 and therefore he came to the hospital. He also had hematuria for the past few days although today cleared out. He is complaining of urinary urgency, dysuria, as well as frequency. He reports that he has not had any good appetite for the past few days, denies any fever chills, he has had shortness of breath that is chronic with no cough or sputum production. He has no abdominal pain nausea or vomiting, no diarrhea constipation. No lower extremity edema. Denies using any NSAIDs. On arrival to the ED hemodynamically stable with no significant abnormal vitals. His blood pressure on arrival was 108/67, on my interview was 140/78. Labs are significant for WBC count of 11.7, hemoglobin of 13.6, hematocrit 41.7, BUN of 26, creatinine of 2.19 with baseline around 0.96, tropes negative, UA negative, COVID-[address] abdomen shows no acute intra-abdominal findings, normal noncontrast appearance of the bilateral kidneys no renal ureteral calculi. No hydronephrosis. Hospital course The patient was admitted to the hospital for evaluation of acute kidney injury reported dizziness episodes. He was noted to have low blood pressure readings while being 5 different blood pressure medications. Most of blood pressure medications were held and the patient was monitored with orthostatic vitals. His blood pressure was noted to be running at low normal with no drop upon standing while using lower doses of metoprolol home dose of lisinopril. Will keep him on cardiac medications. Plan at discharge: Discontinue amlodipine, hydralazine and hydrochlorothiazide Decrease metoprolol to 50 mg daily Monitor your blood pressure readings twice daily for the next week and reported readings to your primary care physician. Time Spent with Patient Time attestation: Total time spent providing and/or coordinating discharge services: Discharge coordination time: Greater than 30 minutes Physical Exam Vital Signs: Vital Signs: Last Vital Signs Temp 97.6 F 01/26/21 08:00 Pulse 85 01/26/21 09:56 Resp 18 01/26/21 08:00 BP 110/68 01/26/21 09:56 Pulse Ox 95 01/26/21 08:00 Body Mass Index 30.5 Const: Other: Constitutional : Alert, oriented, not in distress Neck : Normal inspection, Supple Cardiovascular : RRR, S1 S2, no lower extremity edema Respiratory : Good bilateral air entry, no crackles, wheezes or rhonchi Gastrointestinal: soft, lax, Normal bowel sounds, Non tender Skin : Warm/Dry, No rash Neurological : Alert & oriented x3, No focal deficit DS: Data Data Completed and Pending Labs on day of discharge: Laboratory Results - last 24 hr 01/25/21 01/25/21 01/26/21 16:42 20:13 05:23 WBC 6.0 RBC 4.48 L Hgb 13.2 L Hct 41.0 L MCV 91.5 MCH 29.5 MCHC 32.2 RDW 14.0 Plt Count 223 MPV 10.9 Absolute Nucleated RBC 0.000 Nucleated RBC % (auto) 0.0 Sodium Potassium Chloride Carbon Dioxide Anion Gap BUN Creatinine Estim Creat Clear Calc Estimated GFR POC Glucose 110 128 H Random Glucose Calcium 01/26/21 01/26/21 01/26/21 05:23 07:23 11:14 WBC RBC Hgb Hct MCV MCH MCHC RDW Plt Count MPV Absolute Nucleated RBC Nucleated RBC % (auto) Sodium 139 Potassium 4.8 D Chloride 103 Carbon Dioxide 25 Anion Gap 16 BUN 21 H Creatinine 1.12 Estim Creat Clear Calc 76.5 Estimated GFR > 60 POC Glucose 106 116 H Random Glucose 105 Calcium 10.6 H D Discharge Plan Discharge Patient Disposition: Home, Self-Care Discharge Diagnosis: Low blood pressure, Dizziness Referrals: Chloe Garrison MD [Primary Care Provider] - 1 Week Discharge Medications: Continued omeprazole 20 mg capsule,delayed release(DR/EC) 20 mg PO DAILY Qty: 90 RF: 0 lisinopril 40 mg tablet 40 mg PO DAILY Qty: 90 RF: 0 umeclidinium [Incruse Ellipta] 62.5 mcg/actuation blister with device 1 inh inhalation DAILY Qty: 30 RF: 0 albuterol sulfate [Ventolin HFA] 90 mcg/actuation HFA aerosol inhaler 2 puff PO Q4H PRN (Reason: for wheezing) Qty: 18 RF: 2 metformin 1,000 mg tablet 1,000 mg PO BID Qty: 180 RF: 1 zolpidem 10 mg tablet 1 tab PO BEDTIME RF: 0 budesonide-formoterol [Symbicort] 160-4.5 mcg/actuation HFA aerosol inhaler 2 puff PO BID RF: 0 Daliresp 500 mcg tablet 1 tab PO DAILY RF: 0 budesonide-formoterol [Symbicort] 160-4.5 mcg/actuation Hfa Aerosol Inhaler 2 puff INHALATION BID RF: 0 (DME) blood sugar diagnostic Strip See Rx Instructions strip Not Applicable DAILY Qty: 10 RF: 0 rosuvastatin 40 mg tablet 40 mg PO DAILY RF: 0 aspirin 325 mg tablet,delayed release (DR/EC) 325 mg PO DAILY RF: 0 cetirizine 10 mg tablet 10 mg PO DAILY RF: 0 dulaglutide 0.75 mg/0.5 mL pen injector 1.5 mg subcut QWEEK RF: 0 sitagliptin 100 mg tablet 100 mg PO DAILY RF: 0 Changed metoprolol succinate 100 mg tablet extended release 24 hr 50 mg PO DAILY Qty: 0 RF: 0 Discontinued amlodipine 10 mg tablet 10 mg PO BEDTIME RF: 0 hydrochlorothiazide 25 mg tablet 25 mg PO DAILY RF: 0 hydralazine 10 mg tablet 10 mg PO BID RF: 0 Discharge Orders: Discharge Order (Routine); Ordered 01/26/21 Ordered By: Debbie Justin Diet: advance to usual diet Activity on Discharge: As tolerated Stand Alone Forms: Patient Portal Discharge page Care Plan Goals: Read below Health Concerns: Read below Plan of Treatment: you were admitted to the hospital for evaluation of dizziness and low blood pressure readings. Found to have mild kidney injury which improved back to baseline with IV fluids. Some of your hypertension medications were held with improvement in your blood pressure readings. Repeated blood pressure readings upon sitting and standing were within normal. Assessment: Discontinue amlodipine, hydralazine and hydrochlorothiazide Decrease metoprolol to 50 mg daily Monitor your blood pressure readings twice daily for the next week and reported readings to your primary care physician.
== END 2021-01-26 13:10 | disposition home or self-care (01) | DRG 684 ==
LOC: HO.ED 20:29 → HO.IMC 23:13
PROVIDERS: Emergency Medicine; Admitting Provider Internal Medicine; Emergency Provider Internal Medicine; PCP Internal Medicine; Visit Provider Student in an Organized Health Care Education/Training Program
DX: N17.9 Acute kidney failure, unspecified (principal); I95.9 Hypotension, unspecified; K21.9 Gastro-esophageal reflux disease without esophagitis; E11.9 Type 2 diabetes mellitus without complications; E86.0 Dehydration; I25.10 Atherosclerotic heart disease of native coronary artery without angina pectoris; E78.5 Hyperlipidemia, unspecified; J44.9 Chronic obstructive pulmonary disease, unspecified; Z20.822 Contact with and (suspected) exposure to COVID-19; Z79.82 Long term (current) use of aspirin; Z79.84 Long term (current) use of oral hypoglycemic drugs; Z79.899 Other long term (current) drug therapy
CPT/HCPCS: 36415; 74176; 80048; 80076; 81001; 81003; 82947; 83690; 83735; 83880; 84484; 85025; 85027; 85610; 85730; 87635; 93005; 99285

== ENCOUNTER 2021-02-01 14:12 | Outpatient (REF) | payer OTHER, SELFPAY ==
--- NOTE | ~2021-02-01 | XR_ITS ---
EXAMINATION: XR ANKLE, LEFT CLINICAL INFORMATION: Left ankle effusion. COMPARISON: None TECHNIQUE: AP, lateral, and mortise views of the left ankle. FINDINGS: There is hardware in place for previous ankle fracture with 2 screws within the medial malleolus and screws and sideplate bridging the distal left fibular fracture. There appears to be bony union of fracture fragments. No evidence of hardware failure. Ankle mortise appears intact. No gas within the soft tissues appreciated. There is some soft tissue prominence anteriorly and medially. XR/XR ankle LT min 3V IMPRESSION: No acute fracture or hardware failure identified about the left ankle. Soft tissue swelling.
== END 2021-02-01 14:13 | disposition home or self-care (01) ==
LOC: HO.HMGCX 14:12
PROVIDERS: PCP Internal Medicine; Visit Provider Internal Medicine
DX: M25.472 Effusion, left ankle (principal)
CPT/HCPCS: 73610

== ENCOUNTER 2021-03-09 06:18 | Outpatient (REF) | payer OTHER, SELFPAY ==
[2021-03-09 11:24] LABS: MANUAL DIFF FLAG NO
[2021-03-09 11:41] LABS: Basophils Absolute Auto 0.1 X10*3/uL (0.0-0.2); Basophils Percent Auto 0.5 % (0-2); Eosinophils Absolute Auto 0.5 X10*3/uL (0.0-0.4); Eosinophils Percent Auto 4.6 % (0-4); Hematocrit 42.8 % (42-52); Hemoglobin 13.8 g/dl (14.0-18.0); Imm Gran Abs Auto 0.03 X10*3/uL (0.00-0.03); Imm Gran Pct Auto 0.3 % (0.0-0.4); Lymphocytes Absolute Auto 2.3 X10*3/uL (1.2-4.9); Lymphocytes Percent Auto 23.7 % (20-40); Mean Corpuscular HGB Conc 32.2 g/dl (31.0-36.0); Mean Corpuscular Hemoglobin 30.1 pg (27.0-33.0); Mean Corpuscular Volume 93.4 fL (80-98); Mean Platelet Volume 11.2 fL (9.4-12.4); Monocytes Absolute Auto 0.9 X10*3/uL (0.1-1.2); Neutrophils Absolute Auto 6.1 X10*3/uL (2.0-8.3); Neutrophils Percent Auto 61.9 % (45-73); Platelet Count 255 X10*3/uL (160-400); Red Blood Count 4.58 X10*6/uL (4.60-5.80); Red Cell Distribution Width 13.7 % (11.0-16.0); White Blood Count 9.8 X10*3/uL (4.8-10.8)
[2021-03-09 11:54] LABS: Alanine Aminotransferase 17 U/L (0-40); Albumin Level 4.4 g/dL (3.5-5.0); Alkaline Phosphatase 87 U/L (39-117); Anion Gap 14 (12-20); Aspartate Amino Transferase 22 U/L (5-37); Bilirubin Total 0.3 mg/dL (0.0-1.0); Blood Urea Nitrogen 16 mg/dL (9-16); Calcium 10.1 mg/dL (8.4-10.2); Carbon Dioxide 26 mmol/L (22-29); Chloride 106 mmol/L (96-108); Cholesterol 136 mg/dL; Estimated Glomerular Filt Rate > 60; Glucose Fasting 117 mg/dL (60-99); HDL Cholesterol 63 mg/dL; Iron 50 mcg/dL (45-160); LDL Cholesterol Calculated 59 mg/dl; Percent Iron Saturation 16 % (15-50); Potassium 4.9 mmol/L (3.3-5.1); Sodium 141 mmol/L (135-145); Total Iron Binding Capacity 322 mcg/dL (228-428); Total Protein 7.4 g/dL (6.5-8.0); Triglycerides 70 mg/dL; Unsaturated Iron Binding 272 ug/dL
[2021-03-09 12:05] LABS: Vitamin D 25-OH Total 26.6 ng/mL (>30)
[2021-03-09 12:29] LABS: Folate 10.1 ng/mL (> or = 4.0); Vitamin B12 248 pg/mL (200-900)
[2021-03-12 14:42] LABS: Calcium, Ionized 5.4 mg/dL (4.8-5.6)
== END 2021-03-09 06:19 | disposition home or self-care (01) ==
LOC: HO.HMGCLDS 06:18
PROVIDERS: PCP Internal Medicine; Visit Provider Internal Medicine
DX: E11.9 Type 2 diabetes mellitus without complications (principal); D64.9 Anemia, unspecified; R53.83 Other fatigue; E78.5 Hyperlipidemia, unspecified; E83.52 Hypercalcemia; I10 Essential (primary) hypertension; I25.10 Atherosclerotic heart disease of native coronary artery without angina pectoris; K21.9 Gastro-esophageal reflux disease without esophagitis
CPT/HCPCS: 36415; 80053; 80061; 82306; 82330; 82607; 82746; 83540; 85025

== ENCOUNTER 2021-07-02 07:01 | Outpatient (REF) | payer OTHER, SELFPAY ==
[2021-07-02 07:15] LABS: MANUAL DIFF FLAG NO
[2021-07-02 07:40] LABS: Basophils Percent Auto 0.4 % (0-2); Eosinophils Absolute Auto 0.5 X10*3/uL (0.0-0.4); Eosinophils Percent Auto 6.9 % (0-4); Hematocrit 42.2 % (42-52); Hemoglobin 13.9 g/dl (14.0-18.0); Imm Gran Abs Auto 0.02 X10*3/uL (0.00-0.03); Imm Gran Pct Auto 0.3 % (0.0-0.4); Lymphocytes Absolute Auto 2.7 X10*3/uL (1.2-4.9); Lymphocytes Percent Auto 35.9 % (20-40); Mean Corpuscular HGB Conc 32.9 g/dl (31.0-36.0); Mean Corpuscular Hemoglobin 30.2 pg (27.0-33.0); Mean Corpuscular Volume 91.7 fL (80-98); Mean Platelet Volume 11.1 fL (9.4-12.4); Monocytes Absolute Auto 0.6 X10*3/uL (0.1-1.2); Monocytes Percent Auto 8.3 % (2-11); Neutrophils Absolute Auto 3.6 X10*3/uL (2.0-8.3); Neutrophils Percent Auto 48.2 % (45-73); Platelet Count 200 X10*3/uL (160-400); Red Cell Distribution Width 13.7 % (11.0-16.0); White Blood Count 7.4 X10*3/uL (4.8-10.8)
[2021-07-02 07:54] LABS: Estimated Average Glucose 128 mg/dL; Hemoglobin A1C 155.9498 umol/L; Hemoglobin A1c % 6.1 %
[2021-07-02 08:02] LABS: Alanine Aminotransferase 23 U/L (0-40); Anion Gap 12 (12-20); Aspartate Amino Transferase 21 U/L (5-37); Blood Urea Nitrogen 10 mg/dL (9-16); Carbon Dioxide 26 mmol/L (22-29); Chloride 108 mmol/L (96-108); Cholesterol 182 mg/dL; Estimated Glomerular Filt Rate > 60; Glucose Fasting 98 mg/dL (60-99); HDL Cholesterol 64 mg/dL; Iron 96 mcg/dL (45-160); LDL Cholesterol Calculated 107 mg/dl; Percent Iron Saturation 30 % (15-50); Potassium 4.5 mmol/L (3.3-5.1); Sodium 141 mmol/L (135-145); Total Iron Binding Capacity 317 mcg/dL (228-428); Triglycerides 57 mg/dL; Unsaturated Iron Binding 221 ug/dL
[2021-07-02 08:32] LABS: PSA,Total (Free>4and<10) 1.35 ng/mL (0.00-4.00)
== END 2021-07-02 07:02 | disposition home or self-care (01) ==
LOC: HO.LAB 07:01
PROVIDERS: PCP Internal Medicine; Visit Provider Internal Medicine
DX: D12.6 Benign neoplasm of colon, unspecified (principal); D64.9 Anemia, unspecified; E11.9 Type 2 diabetes mellitus without complications; E78.5 Hyperlipidemia, unspecified; I10 Essential (primary) hypertension; I25.10 Atherosclerotic heart disease of native coronary artery without angina pectoris; J41.0 Simple chronic bronchitis; R91.8 Other nonspecific abnormal finding of lung field
CPT/HCPCS: 36415; 80048; 80061; 83036; 83540; 84153; 84450; 84460; 85025

== ENCOUNTER 2021-09-05 08:35 | Outpatient (REF) | payer OTHER, SELFPAY ==
--- NOTE | ~2021-09-05 | CT_ITS ---
EXAMINATION: CT CHEST WITHOUT CONTRAST CLINICAL INFORMATION: Pulmonary nodules. COMPARISON: CT chest 09/13/2019 TECHNIQUE: Multidetector volumetric CT imaging of the chest was done. Axial MIP volume rendering provided. Sagittal and coronal reformatted images were obtained. This CT examination was performed using dose optimization techniques as appropriate, variously including the following: *Automated exposure control *Adjustment of mA and/or kV according to patient size (this includes techniques or standardized protocols for targeted exams where dose is matched to indication/reason for exam; i.e. 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 LUNGS: The lungs are hyperinflated and clear of acute pneumonic process. There is a new 3 mm pulmonary nodule left lower lobe superior segment, image 181/7, 2 mm nodule right lower lobe axial image 230/7, 1 mm, 3 mm nodule left lower lobe axial image 271/7, 1 mm micronodules right lower lobe axial image 258/7, 3 mm nodule left lower lobe image 302/7, 2 mm nodule right middle lobe axial image 348/7. MEDIASTINUM: The heart size and the great vessels are normal caliber. The thyroid lobes are symmetrical and normal. Central trachea and the bronchi are widely patent. There are focal coronary artery calcifications. No pericardial effusion seen. PLEURA: There is no pleural effusion. No pleural mass or thickening. AXILLA: No lymphadenopathy. UPPER ABDOMEN: Visualized liver, spleen, pancreas, and adrenal glands are unremarkable. OSSEOUS STRUCTURES: There is mild anterior wedging of T12 vertebra, likely old. There is deformity involving left posterolateral 6th and 10th ribs likely old fracture. CT/CT chest wo con IMPRESSION: Multiple bilateral pulmonary nodules are essentially stable. None of the nodules exceed more than 3 mm. No abnormal mediastinal or axillary lymphadenopathy. Consider long-term followup in 1-2 years.
== END 2021-09-05 08:36 | disposition home or self-care (01) ==
LOC: HO.CT 08:35
PROVIDERS: PCP Internal Medicine; Visit Provider Hospitalist
DX: R91.8 Other nonspecific abnormal finding of lung field (principal)
CPT/HCPCS: 71250

== ENCOUNTER → 2021-09-26 08:53 | Outpatient (BNVA) | payer OTHER, SELFPAY | PROVIDERS: PCP Internal Medicine; Visit Provider Hospitalist | DX: J41.0 Simple chronic bronchitis (principal); R91.8 Other nonspecific abnormal finding of lung field; F51.01 Primary insomnia; K21.9 Gastro-esophageal reflux disease without esophagitis | CPT/HCPCS: 99212 ==

== ENCOUNTER 2021-10-31 06:49 | Outpatient (REF) | payer OTHER, SELFPAY ==
[2021-10-31 07:02] LABS: MANUAL DIFF FLAG NO
[2021-10-31 07:19] LABS: Basophils Percent Auto 0.4 % (0-2); Eosinophils Absolute Auto 0.4 X10*3/uL (0.0-0.4); Eosinophils Percent Auto 4.6 % (0-4); Imm Gran Abs Auto 0.02 X10*3/uL (0.00-0.03); Imm Gran Pct Auto 0.3 % (0.0-0.4); Lymphocytes Absolute Auto 2.3 X10*3/uL (1.2-4.9); Lymphocytes Percent Auto 29.5 % (20-40); Mean Corpuscular HGB Conc 33.3 g/dl (31.0-36.0); Mean Corpuscular Hemoglobin 30.8 pg (27.0-33.0); Mean Corpuscular Volume 92.5 fL (80.0-98.0); Mean Platelet Volume 10.6 fL (9.4-12.4); Monocytes Absolute Auto 0.7 X10*3/uL (0.1-1.2); Monocytes Percent Auto 9.5 % (2-11); Neutrophils Absolute Auto 4.3 x10*3/uL (2.0-8.3); Neutrophils Percent Auto 55.7 % (45-73); Platelet Count 226 X10*3/uL (160-400); Red Blood Count 4.54 X10*6/uL (4.60-5.80); Red Cell Distribution Width 13.2 % (11.0-16.0); White Blood Count 7.7 X10*3/uL (4.8-10.8)
[2021-10-31 07:34] LABS: Estimated Average Glucose 134 mg/dL; Hemoglobin A1C 168.8712 umol/L; Hemoglobin A1c % 6.3 %
[2021-10-31 07:56] LABS: Alanine Aminotransferase 23 U/L (0-40); Anion Gap 12 (12-20); Aspartate Amino Transferase 21 U/L (5-37); Blood Urea Nitrogen 15 mg/dL (9-16); Calcium 10.1 mg/dL (8.4-10.2); Carbon Dioxide 28 mmol/L (22-29); Chloride 106 mmol/L (96-108); Cholesterol 193 mg/dL; Estimated Glomerular Filt Rate > 60; Glucose Fasting 100 mg/dL (60-99); HDL Cholesterol 68 mg/dL; Iron 97 mcg/dL (45-160); LDL Cholesterol Calculated 111 mg/dl; Percent Iron Saturation 31 % (15-50); Potassium 4.9 mmol/L (3.3-5.1); Sodium 141 mmol/L (135-145); Total Iron Binding Capacity 313 mcg/dL (228-428); Triglycerides 70 mg/dL; Unsaturated Iron Binding 216 ug/dL
[2021-10-31 08:18] LABS: Creatinine Urine 112.57 mg/dL; Microalbum/Creatinine Ratio Ur 148.3 ug/mg cr
== END 2021-10-31 06:50 | disposition home or self-care (01) ==
LOC: HO.LAB 06:49
PROVIDERS: PCP Internal Medicine; Visit Provider Internal Medicine
DX: E11.9 Type 2 diabetes mellitus without complications (principal); I10 Essential (primary) hypertension; I25.10 Atherosclerotic heart disease of native coronary artery without angina pectoris; R53.83 Other fatigue; D64.9 Anemia, unspecified
CPT/HCPCS: 36415; 80048; 80061; 82043; 83036; 83540; 84450; 84460; 85025

== ENCOUNTER 2022-02-28 06:50 | Outpatient (REF) | payer OTHER, SELFPAY ==
[2022-02-28 11:42] LABS: Estimated Average Glucose 134 mg/dL; Hemoglobin A1C 161.8813 umol/L; Hemoglobin A1c % 6.3 %
[2022-02-28 11:52] LABS: Alanine Aminotransferase 24 U/L (0-40); Anion Gap 12 (12-20); Aspartate Amino Transferase 23 U/L (5-37); Blood Urea Nitrogen 14 mg/dL (9-16); Calcium 9.6 mg/dL (8.4-10.2); Carbon Dioxide 25 mmol/L (22-29); Chloride 107 mmol/L (96-108); Cholesterol 149 mg/dL; Estimated Glomerular Filt Rate > 60; Glucose Fasting 104 mg/dL (60-99); HDL Cholesterol 66 mg/dL; LDL Cholesterol Calculated 73 mg/dl; Potassium 4.4 mmol/L (3.3-5.1); Sodium 140 mmol/L (135-145); Triglycerides 52 mg/dL
== END 2022-02-28 06:51 | disposition home or self-care (01) ==
LOC: HO.HMGCLDS 06:50
PROVIDERS: PCP Internal Medicine; Visit Provider Internal Medicine
DX: E78.5 Hyperlipidemia, unspecified (principal); E11.9 Type 2 diabetes mellitus without complications; I10 Essential (primary) hypertension
CPT/HCPCS: 36415; 80048; 80061; 83036; 84450; 84460

== ENCOUNTER 2022-07-10 06:18 | Outpatient (REF) | payer OTHER, SELFPAY ==
[2022-07-10 07:39] LABS: Estimated Average Glucose 128 mg/dL; Hemoglobin A1c % 6.1 %
[2022-07-10 08:08] LABS: Creatinine Urine 133.61 mg/dL; Microalbum/Creatinine Ratio Ur 142.2 ug/mg cr
[2022-07-10 08:13] LABS: Alanine Aminotransferase 20 U/L (0-40); Anion Gap 14 (12-20); Aspartate Amino Transferase 20 U/L (5-37); Blood Urea Nitrogen 14 mg/dL (9-16); Calcium 9.5 mg/dL (8.4-10.2); Carbon Dioxide 25 mmol/L (22-29); Chloride 104 mmol/L (96-108); Cholesterol 159 mg/dL; Estimated Glomerular Filt Rate > 60; Glucose Fasting 90 mg/dL (60-99); HDL Cholesterol 67 mg/dL; LDL Cholesterol Calculated 79 mg/dl; Potassium 4.4 mmol/L (3.3-5.1); Sodium 139 mmol/L (135-145); Triglycerides 68 mg/dL
[2022-07-10 08:22] LABS: Vitamin D 25-OH Total 32.4 ng/mL (>30)
== END 2022-07-10 06:19 | disposition home or self-care (01) ==
LOC: HO.LAB 06:18
PROVIDERS: PCP Internal Medicine; Visit Provider Internal Medicine
DX: I10 Essential (primary) hypertension (principal); I25.10 Atherosclerotic heart disease of native coronary artery without angina pectoris; E11.9 Type 2 diabetes mellitus without complications; E78.5 Hyperlipidemia, unspecified; K21.9 Gastro-esophageal reflux disease without esophagitis; D12.6 Benign neoplasm of colon, unspecified; M48.56XA Collapsed vertebra, not elsewhere classified, lumbar region, initial encounter for fracture
CPT/HCPCS: 36415; 80048; 80061; 82043; 82306; 83036; 84450; 84460

== ENCOUNTER 2022-08-02 13:28 | Outpatient (REF) | payer OTHER, SELFPAY ==
--- NOTE | ~2022-08-02 | XR_ITS ---
EXAMINATION: XR SHOULDER, RIGHT CLINICAL INFORMATION: Pain. COMPARISON: None TECHNIQUE: AP external rotation, Grashey, scapular Y, and axillary views of the right shoulder. FINDINGS: There is loss of right AC and glenohumeral joint space. No visible acute fracture, dislocation or subluxation seen. The soft tissues are normal. XR/XR shoulder RT min 2V IMPRESSION: Mild degenerative changes right AC and glenohumeral joint.
== END 2022-08-02 13:29 | disposition home or self-care (01) ==
LOC: HO.HMGCX 13:28
PROVIDERS: PCP Internal Medicine; Visit Provider Physician Assistant
DX: M25.511 Pain in right shoulder (principal)
CPT/HCPCS: 73030

== ENCOUNTER → 2022-08-29 15:09 | Outpatient (BNVA) | payer OTHER, SELFPAY | PROVIDERS: PCP Internal Medicine; Visit Provider Physician Assistant | DX: S46.091A Other injury of muscle(s) and tendon(s) of the rotator cuff of right shoulder, initial encounter (principal) | CPT/HCPCS: 99202 ==

== ENCOUNTER → 2022-10-10 15:03 | Outpatient (BNVA) | payer OTHER, SELFPAY | PROVIDERS: PCP Internal Medicine; Visit Provider Physician Assistant | DX: S46.091D Other injury of muscle(s) and tendon(s) of the rotator cuff of right shoulder, subsequent encounter (principal) | CPT/HCPCS: 99212 ==

== ENCOUNTER → 2022-10-18 12:50 | Outpatient (BNVA) | payer OTHER, SELFPAY | PROVIDERS: PCP Internal Medicine; Visit Provider Hospitalist | DX: Z23 Encounter for immunization (principal); J41.0 Simple chronic bronchitis; R91.8 Other nonspecific abnormal finding of lung field; F51.01 Primary insomnia; K21.9 Gastro-esophageal reflux disease without esophagitis | CPT/HCPCS: 90471; 90677; 99212 ==

== ENCOUNTER 2022-12-13 06:12 | Outpatient (REF) | payer OTHER, SELFPAY ==
[2022-12-13 07:46] LABS: Estimated Average Glucose 140 mg/dL; Hemoglobin A1c % 6.5 %
[2022-12-13 08:11] LABS: Alanine Aminotransferase 36 U/L (0-40); Anion Gap 13 (12-20); Aspartate Amino Transferase 25 U/L (5-37); Blood Urea Nitrogen 11 mg/dL (9-16); Calcium 9.7 mg/dL (8.4-10.2); Carbon Dioxide 26 mmol/L (22-29); Chloride 106 mmol/L (96-108); Cholesterol 141 mg/dL; Estimated Glomerular Filt Rate > 60; Glucose Fasting 91 mg/dL (60-99); HDL Cholesterol 60 mg/dL; LDL Cholesterol Calculated 68 mg/dl; Potassium 4.3 mmol/L (3.3-5.1); Sodium 141 mmol/L (135-145); Triglycerides 65 mg/dL
[2022-12-13 08:21] LABS: Creatinine Urine 153.52 mg/dL; Microalbum/Creatinine Ratio Ur 45.5 ug/mg cr
== END 2022-12-13 06:13 | disposition home or self-care (01) ==
LOC: HO.LAB 06:12
PROVIDERS: PCP Internal Medicine; Visit Provider Internal Medicine
DX: E11.9 Type 2 diabetes mellitus without complications (principal); E78.5 Hyperlipidemia, unspecified; I10 Essential (primary) hypertension
CPT/HCPCS: 36415; 80048; 80061; 82043; 82306; 83036; 84450; 84460

== ENCOUNTER 2022-12-24 11:55 | Outpatient (AMB) | payer OTHER, SELFPAY ==
--- NOTE | 2022-12-24 12:47 | A.OFFPC_ITS ---
Vital Signs 12/24/22 12:48 Height 5 ft 6 in Weight 182 lb BMI 29.3 BP 132/70 Blood Pressure Location Lt brachial Position Sitting Pulse 86 Pulse Source Pulse Oximeter Pulse Oximetry (%) 98 Oxygen Delivery Method Room Air Intake Visit Reasons: follow up from missed appt, labs Intake Note: Pt is here today to f/u labs Allergies No Known Allergies Allergy (Verified 11/02/23 22:39) Medication List - Last Reconciled 12/24/22 by Chloe Garrison MD acetaminophen ER (Tylenol Arthritis Pain) 650 mg PO Q12H PRN albuterol sulfate 90 mcg/actuation (Ventolin HFA) 2 puffs inhalation Q4H PRN albuterol sulfate 2.5 mg (3 mL) inhalation Q6H PRN blood sugar diagnostic As directed blood sugar diagnostic (FreeStyle Lite Strips) check blood sugar once a day AC budesonide-formoterol 160-4.5 mcg/actuation (Symbicort) 2 puffs PO BID diclofenac sodium TAKE 1 TABLET BY MOUTH TWICE DAILY NEEDED FOR PAIN Incruse Ellipta 62.5 mcg/actuation (umeclidinium) 1 inh inhalation DAILY NS lisinopril 20 mg PO DAILY metformin 1,000 mg PO BID metoprolol succinate ER 50 mg (1/2 x 100 mg) PO DAILY omeprazole 20 mg PO DAILY rosuvastatin 5 mg PO DAILY zolpidem 10 mg PO BEDTIME PRN 30 days Tobacco use date assessed: 12/24/22 HPI HPI Comments History of Present Illness Details 88-year-old male here today for follow-u p on his diabetes mellitus, hypertension dyslipidemia hypertension. Has been compliant with taking his medications. Been feeling well with no complaints at present time. [facility] Medical History Skin tags, multiple acquired Tubular adenoma of colon Fatigue Trimalleolar fracture of left ankle Primary insomnia GERD (gastroesophageal reflux disease) Cervical radiculopathy due to degenerative joint disease of spine Obstructive sleep apnea Dyslipidemia Compression fracture of lumbar spine, non-traumatic COPD (chronic obstructive pulmonary disease) Pulmonary nodule seen on imaging study Coronary artery disease Type 2 diabetes mellitus without complication, without long-term current use of insulin Essential hypertension Surgical History Hx of colonoscopy Status post open reduction and internal fixation (ORIF) of fracture History of surgery Family History Father ETOH abuse Mother CVD (cardiovascular disease) Hx of CABG Brother No problems noted. Brother No problems noted. Sister No problems noted. Sister No problems noted. Sister No problems noted. Sister No problems noted. Sister No problems noted. Son No problems noted. Son No problems noted. Son No problems noted. Son No problems noted. Son No problems noted. 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 How often do you have a drink containing alcohol?: Never Total Score: 0 SHIRA-7 AMB Questionnaire SHIRA-7 Date SHIRA - 7 assessed: 11/06/21 Source: Developed by Drs. Milton Tracy, Loraine Jose, Donnell Causey and colleagues, with an educational paulino from [employer]. Review of Systems Const Denies body aches, Denies fever(s), Denies headache(s), Denies night sweats and Denies poor appetite Eyes Details: Goes to [facility] , overdue for his diabetes retinopathy screening ENT Reports Normal hearing present, Denies dizziness, Denies dry mouth, Denies headache(s) and Denies sore throat Card Denies chest pain, Denies irregular heart rhythm and Denies lightheadedness Resp Reports no additional complaints GI Denies abdominal pain, Denies melena, Denies bloating, Denies change in bowel habits and Denies heartburn Denies hematuria and Denies difficulty urinating Musc Reports no additional complaints Skin/Breast Denies rash Neuro Reports Normal hearing present, Denies Neuro-related abnormal movements, Denies burning sensations, Denies dizziness, Denies headache(s) and Denies Sensory deficit (Neuro) Psych Reports no additional complaints Endo Denies polyphagia, Denies polydipsia and Denies polyuria Hu/Lymph Denies easy bleeding and Denies lymphadenopathy Aller/Immun Reports no additional complaints Physical exam (Primary Care) Vital Signs: Last Vital Signs Pulse 86 12/24/22 12:48 BP 132/70 12/24/22 12:48 Pulse Ox 98 12/24/22 12:48 Oxygen Delivery Method Room Air 12/24/22 12:48 BMI result Body Mass Index 29.3 Tobacco/Smoking Status: Tobacco use Status Tobacco use date assessed 12/24/22 12/24/22 12:55 Patient Tobacco Use Status Former Tobacco user 12/24/22 12:47 e-Cigarette/Vaping Use Never Used 12/24/22 12:47 Thrive Assessment: Date of Thrive Assessment Date Thrive assessed 11/06/21 12/24/22 12:47 Const General: comfortable, no acute distress, alert and awake Nutritional Appearance: overweight Orientation/consciousness: patient oriented x3 HENMT Mouth: Normal oral and palatal mucosa present, tongue normal and moist mucous membranes Eyes General: appearance normal, both eyes and all related structures Neck Neck: Yes full ROM, Yes no lymphadenopathy and Yes supple Resp Auscultation: clear to auscultation bilaterally Cardio Rate: regular rate Rhythm: regular rhythm GI Palpation (GI): Soft to palpation, nontender, no guarding and no masses Auscultation: normal bowel sounds General: Yes no CVA tenderness Male General Exam: Yes normal external exam Back/Spine/Pelvis Back: no CVA tenderness and No back tenderness Skin General skin exam: no rashes or lesions noted Neuro General: patient oriented x3, tone normal, moves all extremities and no focal motor deficits Cranial nerves: Yes Normal hearing present Sensory Exam: No Sensory deficit (Neuro) Extrem General: Yes full ROM, Yes no joint enlargement and Yes no pedal edema Psych Appearance: grossly normal and well kempt Mental Status: mental status grossly normal Speech and movement: Normal speech and movement present Affect: normal affect Attitude: cooperative Thought process: Normal thought process present Results Reviewed Results Reviewed: Name: Trey Suarez Age/Sex: 57/M : 1965 Unit#: [id number] Attend Dr: Chloe Garrison MD Re12/13/22 Status: DEP REF Location: .LAB Disch: SPEC : [id number] NAVEED: 12/13/22 STATUS: COMP REQ : [id number] RECD: 12/13/[address]: Chloe Garrison MD COMP: 12/13/22 ENTERED: 12/13/[address]: ORDERED: Met Prof Fast, AST, ALT, Lipid Panel, Vitamin D 25-OH Test Result Flag Reference Site Sodium 141 135-145 mmol/L Potassium 4.3 3.3-5.1 mmol/L CL 106 96-108 mmol/L CO2 26 22-29 mmol/L Gap 13 12-20 BUN 11 9-16 mg/dL Creat 0.93 0.5-1.4 mg/dL EGFR > 60 NOTE: For -[place] individuals, multiply the result by 1.210. Chronic Kidney Disease: Estimated GFR < 60 mL/min/1.73m2 Severe Kidney Disease: Estimated GFR < 15 mL/min/1.73m2 FBS 91 60-99 mg/dL CA 9.7 8.4-10.2 mg/dL AST (GOT) 25 5-37 U/L ALT (GPT) 36 0-40 U/L Triglyceride 65 mg/dL Desirable Triglyceride: less than 150 mg/dL Borderline High Triglyceride 150-199 mg/dL High Triglyceride: 200-499 mg/dL Very High Triglyceride: greater than or equal to 5OO mg/dL Chol 141 mg/dL Desirable Cholesterol: less than 200 mg/dL Borderline High Cholesterol: 200-239 mg/dL High Cholesterol: greater than 239 mg/dL LDL Calculated 68 mg/dl Desirable LDL: less than 100 mg/dL Near Optimal/Above Optimal LDL: 110-129 mg/dL Borderline High LDL: 130-159 mg/dL High LDL: 160-189 mg/dL Very High LDL: greater than or equal to 190 mg/dL HDL 60 mg/dL Desirable HDL: greater than 40 mg/dL Note: This HDL assay may give artificially low results in patients with liver disease. Vit D 25-OH Tot 29.0 >30 ng/mL Health Based Reference Values* < 20 ng/mL Deficient 20-30 ng/mL Insufficient > 30 ng/mL Sufficient Laboratory Tests 07/10/22 12/13/22 12/13/22 06:41 06:15 06:22 Estimat Average Glucose 128 140 Hemoglobin A1c % 6.1 6.5 Urine Creatinine 153.52 Urine Microalbumin 70.0 Microalb/Creat Ratio 45.5 Assessment and Plan Assessment & Plan (1) Type 2 diabetes mellitus without complication, without long-term current use of insulin: Code(s): E11.9 - Type 2 diabetes mellitus without complications Plan: Diabetes mellitus well controlled, will continue on present medications Blood pressure at goal of less than 130/80. Continue with current medication. (2) Essential hypertension: Code(s): I10 - Essential (primary) hypertension Plan: Blood pressure at goal of less than 130/80. Continue with current medication. Reinforced importance of following a low sodium diet, getting regular exercise, and lowering stress levels. (3) Dyslipidemia: Code(s): E78.5 - Hyperlipidemia, unspecified Plan: Fasting lipids are within normal limits, continued rosuvastatin 5 mg daily (4) Coronary artery disease: Comment: Followed by Dr. Garzon Code(s): I25.10 - Atherosclerotic heart disease of [place] coronary artery without angina pectoris Qualifiers: Associated angina: without angina Coronary Disease-Associated Artery/Lesion type: [place] artery [place] vs. transplanted heart: [place] heart Qualified Code(s): I25.10 - Atherosclerotic heart disease of [place] coronary artery without angina pectoris Orders: Orders Alanine Aminotransferase 05/19/23 E11.9 - Type 2 diabetes mellitus without complications, I10 - Essential (primary) hypertension, I25.10 - Atherosclerotic heart disease of [place] coronary artery without angina pectoris Aspartate Amino Transferase 05/19/23 E11.9 - Type 2 diabetes mellitus without complications, I10 - Essential (primary) hypertension, I25.10 - Atherosclerotic heart disease of [place] coronary artery without angina pectoris Basic Metabolic Panel Fasting 05/19/23 E11.9 - Type 2 diabetes mellitus without complications, I10 - Essential (primary) hypertension, I25.10 - Atherosclerotic heart disease of [place] coronary artery without angina pectoris Hemoglobin A1c 05/19/23 E11.9 - Type 2 diabetes mellitus without complications, I10 - Essential (primary) hypertension, I25.10 - Atherosclerotic heart disease of [place] coronary artery without angina pectoris Lipid Panel 05/19/23 E11.9 - Type 2 diabetes mellitus without complications, I10 - Essential (primary) hypertension, I25.10 - Atherosclerotic heart disease of [place] coronary artery without angina pectoris Medications: Changed From omeprazole 20 mg PO DAILY 90 caps 0RF To omeprazole 20 mg PO DAILY PRN 90 caps 1RF heartburn From diclofenac sodium TAKE 1 TABLET BY MOUTH TWICE DAILY NEEDED FOR PAIN 60 tabs 0RF To diclofenac sodium TAKE 1 TABLET BY MOUTH once a day NEEDED FOR PAIN, take with milk or a meal 30 tabs 0RF Coding Level of Care Code Est Pt Level 4 (34010) Diagnoses Type 2 diabetes mellitus without complication, without long-term current use of insulin E11.9 Essential hypertension I10 Dyslipidemia E78.5 Coronary artery disease involving [place] coronary artery of [place] heart without angina pectoris I25.10 Associated angina: without angina Coronary Disease-Associated Artery/Lesion type: [place] artery [place] vs. transplanted heart: [place] heart
[2022-12-24 12:48] VITALS: BP 132/70; PULSE 86; O2SAT 98; BMI 29.3
== END 2022-12-24 14:05 | disposition home or self-care (01) ==
LOC: HO.HMGC 11:55
PROVIDERS: PCP Internal Medicine; Visit Provider Internal Medicine
DX: E11.9 Type 2 diabetes mellitus without complications (principal); I10 Essential (primary) hypertension; E78.5 Hyperlipidemia, unspecified; I25.10 Atherosclerotic heart disease of native coronary artery without angina pectoris
CPT/HCPCS: 99214; 99499

== ENCOUNTER 2023-04-02 15:05 | Outpatient (REF) | payer OTHER, SELFPAY ==
--- NOTE | ~2023-04-02 | CT_ITS ---
EXAMINATION: CT CHEST WITHOUT CONTRAST CLINICAL INFORMATION: Other nonspecific abnormal finding of lung field. Follow-up pulmonary nodules. COMPARISON: Previous chest CT August 2021 TECHNIQUE: Multidetector volumetric CT imaging of the chest was done. Axial MIP volume rendering provided. Sagittal and coronal reformatted images were obtained. This CT examination was performed using dose optimization techniques as appropriate, variously including the following: *Automated exposure control *Adjustment of mA and/or kV according to patient size (this includes techniques or standardized protocols for targeted exams where dose is matched to indication/reason for exam; i.e. 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 This is similar to previous exam. There are multiple small bilateral pulmonary nodules. These appear unchanged. Largest pulmonary nodule measures 3 mm in the left lower lobe. No new pulmonary nodule. Increased attenuation in the peripheral left lower lobe adjacent to rib fracture. MEDIASTINUM: The mediastinum is normal. CORONARY ARTERY CALCIFICATION: Mild PLEURA: There is no pleural effusion. No pleural mass or thickening. AXILLA: No lymphadenopathy. UPPER ABDOMEN: Fatty liver. OSSEOUS STRUCTURES: Scoliosis and degenerative changes of the spine. Old left rib and L1 vertebral body compression fractures. CT/CT chest wo IV con IMPRESSION: Stable pulmonary nodules. According to Fleischner criteria, chest CT follow-up to longer needed. Fleischner guidelines were followed.
== END 2023-04-02 15:06 | disposition home or self-care (01) ==
LOC: HO.CT 15:05
PROVIDERS: PCP Internal Medicine; Visit Provider Hospitalist
DX: R91.8 Other nonspecific abnormal finding of lung field (principal)
CPT/HCPCS: 71250

== ENCOUNTER 2023-04-21 12:49 | Outpatient (AMB) | payer OTHER, SELFPAY ==
[2023-04-21 13:03] VITALS: BP 128/70; PULSE 81; O2SAT 97; BMI 30.2
--- NOTE | 2023-04-21 13:03 | MHC.OFFVIS ---
Intake Vital Signs 04/21/23 13:03 Height 5 ft 6 in Weight 187 lb 6.287 oz BMI 30.2 BP 128/70 Blood Pressure Location Lt brachial Position Sitting Pulse 81 Pulse Source Pulse Oximeter Pulse Oximetry (%) 97 Oxygen Delivery Method Room Air Intake Visit Reasons: COPD follow-up Radiocommunications Technician Required: No Allergies No Known Allergies Allergy (Verified 04/21/23 13:06) HPI HPI Comments History of Present Illness Details The patient is a 58 y/o man with a history of COPD in addition to ongoing chest discomfort. Back in December he started complaining of significant pleuritic discomfort at the chest left chest. Ultimately had a chest x-ray and also a x-ray the ribs which was relatively normal except for some scoliosis. He continues uses inhalers with with good effect. Denies any wheezing or significant coughing at this time. However, he is having still significant left-sided pleuritic discomfort. Sometimes it can be as severe as 7 or 8/10. The episodes are intermittent. At this point the patient is concerned with what with this pain could be. Therefore we will re-evaluate discomfort. Will probably have to repeat the chest x-ray since he had 1 in December but if no answers to have to get a CT scan to further address his chest discomfort. We did review his CT scan of the chest that he had back in 2016 demonstrating healed fracture on the left side but also he also has small pulmonary nodules. These nodules need follow-up. He did have a CT scan of the chest that we personally reviewed here in the office suggesting very small 2-3 mm pulmonary nodules. At this point the patient will need a follow up in a year's time. If the nodules are no different than we can stop following them. His lung parenchyma appeared to be very healthy. He continues to use Ambien for sleep. Denies any retrograde amnesia or any side effects of the medication. He does try to take breaks or medication holidays. 04/21/2023 the patient is here for pulmonary follow-up visit. Overall the patient is doing well. He continues uses inhalers as prescribed. He does need a refill on his nebulized solution. I will send to the pharmacy. The patient had addition to that has been using the Ambien for sleep with good effect. He does get a full night's sleep. He does take breaks from the medication to minimize on the adverse effects. He stop taking the Daliresp at this time. Will hold off on the therapy unless he starts developing worsening symptoms. The patient has been exercising regularly. We did review his last CT scan from March 2023 demonstrating stable pulmonary nodules without any significant changes. Therefore no additional CT scans are need to be ordered at this time. Will have follow-up in a year's time and at that point we will decide if additional imaging studies will be warranted. [facility] Medical History (Updated 04/21/23 @ 20:26 by Dangelo Rankin MD) Cervical radiculopathy due to degenerative joint disease of spine Compression fracture of lumbar spine, non-traumatic COPD (chronic obstructive pulmonary disease) Coronary artery disease Dyslipidemia Essential hypertension Fatigue GERD (gastroesophageal reflux disease) Insomnia Obstructive sleep apnea Primary insomnia Pulmonary nodule seen on imaging study Pulmonary nodules Skin tags, multiple acquired Trimalleolar fracture of left ankle Tubular adenoma of colon Type 2 diabetes mellitus without complication, without long-term current use of insulin Surgical History (System 10/30/22 @ 14:31 by Maggi Etienne) History of surgery Hx of colonoscopy Status post open reduction and internal fixation (ORIF) of fracture Family History Father ETOH abuse Mother CVD (cardiovascular disease) Hx of CABG Brother No problems noted. Brother No problems noted. Sister No problems noted. Sister No problems noted. Sister No problems noted. Sister No problems noted. Sister No problems noted. Son No problems noted. Son No problems noted. Son No problems noted. Son No problems noted. Son No problems noted. 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 Cognitive needs: No Hearing needs: No Vision needs: No Review of Systems Const Denies body aches, Denies fever(s), Denies headache(s), Denies night sweats, Denies poor appetite and Reports weight loss ENT Reports Normal hearing present, Denies dizziness, Denies dry mouth, Denies headache(s), Reports nasal congestion, Reports nasal discharge and Denies sore throat Card Denies chest pain, Denies irregular heart rhythm, Denies lightheadedness and Denies dyspnea on exertion (Unchanged) Resp Reports cough and Denies dyspnea on exertion (Unchanged) GI Denies abdominal pain, Denies melena, Denies bloating, Denies hematochezia, Denies change in bowel habits, Denies heartburn and Denies nausea Denies hematuria and Denies difficulty urinating Musc Reports as per HPI Skin/Breast Denies rash Neuro Reports Normal hearing present, Denies Neuro-related abnormal movements, Denies burning sensations, Denies dizziness, Denies headache(s) and Denies Sensory deficit (Neuro) Psych Reports no additional complaints Endo Denies polyphagia, Denies polydipsia and Denies polyuria Hu/Lymph Denies easy bleeding and Denies lymphadenopathy Aller/Immun Reports no additional complaints Physical Exam Vital Signs: Last Vital Signs Pulse 81 04/21/23 13:03 BP 128/70 04/21/23 13:03 Pulse Ox 97 04/21/23 13:03 Oxygen Delivery Method Room Air 04/21/23 13:03 BMI result Body Mass Index 30.2 Const General: cooperative and no acute distress Orientation/consciousness: patient oriented x3 Neck Neck: Yes supple Chest Chest palpation & inspection: normal inspection of the chest Resp Effort & Inspection: normal respiratory effort and able to speak in complete sentences Auscultation: no rhonchi, no wheezes and diminished lung sounds Cardio Rate: regular rate Peripheral pulses: Peripheral pulses 2+ throughout GI Palpation (GI): Soft to palpation Skin Lesions: no lesions Rashes: no rashes Neuro General: patient oriented x3 Cranial nerves: Yes Normal hearing present Sensory Exam: No Sensory deficit (Neuro) Extrem Other: Right shoulder: Normal to inspection. No ecchymosis, erythema, or edema. Full shoulder ROM in all planes. Negative cross-body reach. Negative empty can. Negative drop arm. NVI. Psych Mental Status: mental status grossly normal Assessment & Plan Assessment & Plan (1) COPD (chronic obstructive pulmonary disease): Code(s): J44.9 - Chronic obstructive pulmonary disease, unspecified Qualifiers: COPD type: chronic bronchitis Chronic bronchitis type: simple Qualified Code(s): J41.0 - Simple chronic bronchitis (2) Pulmonary nodules: Code(s): R91.8 - Other nonspecific abnormal finding of lung field (3) Insomnia: Code(s): G47.00 - Insomnia, unspecified Qualifiers: Insomnia type: primary Qualified Code(s): F51.01 - Primary insomnia (4) GERD (gastroesophageal reflux disease): Code(s): K21.9 - Gastro-esophageal reflux disease without esophagitis Qualifiers: Esophagitis presence: without esophagitis Qualified Code(s): K21.9 - Gastro-esophageal reflux disease without esophagitis Plan Continue current respiratory therapy: symbicort and Incruse LEI as needed stop Daliresp Ambien as needed No need for serial CT chest. We will reassess further imaging next year F/U 12 months or sooner if new issues arise Medications: Refilled albuterol sulfate 2.5 mg (3 mL) inhalation Q6H PRN 180 mL 6RF for dyspnea J41.0 - Simple chronic bronchitis zolpidem 10 mg PO BEDTIME 30 days PRN 30 tabs 3RF sleep Coding Level of Care Code Est Pt Level 4 (02495) Diagnoses COPD (chronic obstructive pulmonary disease) J41.0 COPD type: chronic bronchitis Chronic bronchitis type: simple Pulmonary nodules R91.8 Insomnia F51.01 Insomnia type: primary GERD (gastroesophageal reflux disease) K21.9 Esophagitis presence: without esophagitis Time Spent (min) 18
== END 2023-04-21 13:49 | disposition home or self-care (01) ==
PROVIDERS: PCP Internal Medicine; Visit Provider Hospitalist
DX: J41.0 Simple chronic bronchitis (principal); R91.8 Other nonspecific abnormal finding of lung field; F51.01 Primary insomnia; K21.9 Gastro-esophageal reflux disease without esophagitis
CPT/HCPCS: 99214

== ENCOUNTER → 2023-04-21 12:49 | Outpatient (BNVA) | payer OTHER, SELFPAY | PROVIDERS: Visit Provider Hospitalist | DX: J41.0 Simple chronic bronchitis (principal); R91.8 Other nonspecific abnormal finding of lung field; F51.01 Primary insomnia; K21.9 Gastro-esophageal reflux disease without esophagitis | CPT/HCPCS: 99212 ==

== ENCOUNTER 2023-05-22 06:37 | Outpatient (REF) | payer OTHER, SELFPAY ==
[2023-05-22 07:11] LABS: Estimated Average Glucose 131 mg/dL; Hemoglobin A1c % 6.2 % (<6.0)
[2023-05-22 07:23] LABS: Alanine Aminotransferase 36 U/L (0-40); Anion Gap 12 (12-20); Aspartate Amino Transferase 35 U/L (5-37); Blood Urea Nitrogen 14 mg/dL (9-16); Calcium 10.8 mg/dL (8.4-10.2); Carbon Dioxide 25 mmol/L (22-29); Chloride 107 mmol/L (96-108); Cholesterol 158 mg/dL (<200); Estimated Glomerular Filt Rate > 60; Glucose Fasting 95 mg/dL (60-99); HDL Cholesterol 61 mg/dL (>40); LDL Cholesterol Calculated 80 mg/dL (<100); Potassium 4.5 mmol/L (3.3-5.1); Sodium 139 mmol/L (135-145); Triglycerides 87 mg/dL (<150)
== END 2023-05-22 06:38 | disposition home or self-care (01) ==
LOC: HO.LAB 06:37
PROVIDERS: PCP Internal Medicine; Visit Provider Internal Medicine
DX: E11.9 Type 2 diabetes mellitus without complications (principal); I10 Essential (primary) hypertension; I25.10 Atherosclerotic heart disease of native coronary artery without angina pectoris
CPT/HCPCS: 36415; 80048; 80061; 83036; 84450; 84460

== ENCOUNTER 2023-06-03 09:40 | Outpatient (AMB) | payer OTHER, SELFPAY ==
[2023-06-03 10:29] VITALS: BP 122/70; PULSE 67; O2SAT 98; BMI 29.9
--- NOTE | 2023-06-03 10:29 | A.OFFPC_ITS ---
Vital Signs 06/03/23 10:29 Height 5 ft 6 in Weight 185 lb BMI 29.9 BP 122/70 Blood Pressure Location Lt brachial Position Sitting Pulse 67 Pulse Source Pulse Oximeter Pulse Oximetry (%) 98 Oxygen Delivery Method Room Air Intake Visit Reasons: Annual PE Intake Note: patient is here for his annual PE Allergies No Known Allergies Allergy (Verified 06/03/23 10:47) Medication List - Last Reconciled 06/03/23 by Chloe Garrison MD acetaminophen ER (Tylenol Arthritis Pain) 650 mg PO Q12H PRN albuterol sulfate 2.5 mg (3 mL) inhalation Q6H PRN blood sugar diagnostic As directed blood sugar diagnostic (FreeStyle Lite Strips) check blood sugar once a day AC diclofenac sodium TAKE 1 TABLET BY MOUTH once a day NEEDED FOR PAIN, take with milk or a meal Incruse Ellipta 62.5 mcg/actuation (umeclidinium) 1 inh inhalation DAILY NS lisinopril 20 mg PO DAILY metformin 1,000 mg PO BID nebulizers As directed omeprazole 20 mg PO DAILY PRN rosuvastatin 5 mg PO DAILY Symbicort 160-4.5 mcg/actuation (budesonide-formoterol) 2 puffs PO BID NS Ventolin HFA 90 mcg/actuation (albuterol sulfate) 2 puffs inhalation Q4H PRN NS zolpidem 10 mg PO BEDTIME PRN 30 days Tobacco use date assessed: 06/03/23 Dental Screening Dental Screen Date: 06/03/23 Did you have a dental visit in the last 12 months?: No Did you have a dental problem in the last 6 months where you did not have access to dental care?: No Was dental information given to patient?: Patient has dentist HPI Annual PE HPI Details 58-year-old male, here today for his phy sical exam. Has diabetes mellitus, stable and controlled on present treatment, with latest hemoglobin A1c at 6.2%. Hypertension stable controlled present treatment, and fasting lipids are also controlled with present medication with latest fasting lipids within normal limits. Has been compliant with taking his medications, follows low cholesterol low-salt diet and has started walking for exercise. He is overdue for screening colonoscopy last done in 2016 with removal of 2 tubular adenomas, overdue for repeat colonoscopy. Patient states that he has had [address] appointments [address] canceled [address]. Borrego his office and has not been rescheduled yet. He is overdue for his for diabetes retinopathy screening, goes to [facility], and was seeing Dr. Wilks before for his diabetes foot care, overdue. He has COPD and has small pulmonary nodules, stable and controlled on present treatment, just had a lung cancer screening done a month ago, currently being followed by Dr. Rankin [facility] Medical History (Updated 06/03/23 @ 11:13 by Chloe Garrison MD) Skin tags, multiple acquired Tubular adenoma of colon Fatigue Trimalleolar fracture of left ankle Primary insomnia GERD (gastroesophageal reflux disease) Cervical radiculopathy due to degenerative joint disease of spine Obstructive sleep apnea Dyslipidemia Compression fracture of lumbar spine, non-traumatic COPD (chronic obstructive pulmonary disease) Pulmonary nodule seen on imaging study Coronary artery disease Type 2 diabetes mellitus without complication, without long-term current use of insulin Essential hypertension Surgical History Hx of colonoscopy Status post open reduction and internal fixation (ORIF) of fracture History of surgery Family History Father ETOH abuse Mother CVD (cardiovascular disease) Hx of CABG Brother No problems noted. Brother No problems noted. Sister No problems noted. Sister No problems noted. Sister No problems noted. Sister No problems noted. Sister No problems noted. Son No problems noted. Son No problems noted. Son No problems noted. Son No problems noted. Son No problems noted. 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 1. Little interest or pleasure in doing things: not at all 2. Feeling down, depressed, or hopeless: not at all 3. Trouble falling or staying asleep, or sleeping too much: not at all 4. Feeling tired or having little energy: not at all 5. Poor appetite or overeating: not at all 6. Feeling bad about yourself - or that you are a failure or have let yourself or your family down: not at all 7. Trouble concentrating on things, such as reading the newspaper or watching television: not at all 8. Moving or speaking so slowly that other people could have noticed. Or the opposite - being so fidgety or restless that you have been moving around a lot more than usual: not at all 9. Thoughts that you would be better off or of hurting yourself in some way: not at all Total score: 0 Depression Screening Interpretation: Negative Source: Developed by Drs. Milton Tracy, Loraine Jose, Donnell Causey and colleagues, with an educational paulino from [employer]. Thrive Questionnaire Date Thrive assessed: 06/03/23 I am a: Patient What is your living situation today?: I have a steady place to live Within the past 12 months, did the food you bought not last and you didn't have the money to get more?: Often true Within the past 12 months, did you worry whether your food would run out before you got money to buy more?: Often true Do you have trouble paying for medicines?: No Do you have trouble getting transportation to medical appointments?: No Do you have trouble paying your heating and electricity bill?: No Do you have trouble taking care of your child, family member or friend?: No Do you have trouble with day-to-day activities such as bathing, preparing meals, shopping, managing finances, etc.?: No Are you currently unemployed and looking for a job?: No Are you interested in more education?: No AUDIT C Alcohol Use Questionnaire (AUDIT-C) 1. How often do you have a drink containing alcohol?: Monthly or less 2. How many drinks containing alcohol do you have on a typical day when you are drinking?: 1 or 2 Total Score: 1 SHIRA-7 AMB Questionnaire SHIRA-7 Date SHIRA - 7 assessed: 06/03/23 Feeling nervous, anxious, or on edge: 0 = Not at all Not being able to stop or control worryin = Not at all Worrying too much about different things: 0 = Not at all Trouble relaxin = Not at all Being so restless that it is hard to sit still: 0 = Not at all Becoming easily annoyed or irritable: 0 = Not at all Feeling afraid as if something awful might happen: 0 = Not at all Total SHIRA-7 score (0-4 normal; 5-9 mild; 10-14 moderate; 15-21 severe): 0 Source: Developed by Drs. Milton Tracy, Loraine Jose, Donnell Causey and colleagues, with an educational paulino from [employer]. SHIRA-7 Assessment Billing SHIRA-7 Assessment Tool: SHIRA-7 Assessment 00242 Review of Systems Const Denies body aches, Denies fever(s), Denies headache(s), Denies night sweats, Denies poor appetite and Reports weight loss Eyes Details: Goes to [facility] , overdue for his diabetes retinopathy screening ENT Reports Normal hearing present, Denies dizziness, Denies dry mouth, Denies headache(s) and Denies sore throat Card Denies chest pain, Denies irregular heart rhythm, Denies lightheadedness and Denies dyspnea on exertion (Unchanged) Resp Reports cough and Denies dyspnea on exertion (Unchanged) GI Denies abdominal pain, Denies melena, Denies bloating, Denies hematochezia, Denies change in bowel habits, Denies heartburn and Denies nausea Denies hematuria and Denies difficulty urinating Musc Reports no additional complaints Skin/Breast Denies rash Neuro Reports Normal hearing present, Denies Neuro-related abnormal movements, Denies burning sensations, Denies dizziness, Denies headache(s) and Denies Sensory deficit (Neuro) Psych Reports no additional complaints Endo Denies polyphagia, Denies polydipsia and Denies polyuria Hu/Lymph Denies easy bleeding and Denies lymphadenopathy Aller/Immun Reports no additional complaints Physical exam (Primary Care) Vital Signs: Last Vital Signs Pulse 67 06/03/23 10:29 BP 122/70 06/03/23 10:29 Pulse Ox 98 06/03/23 10:29 Oxygen Delivery Method Room Air 06/03/23 10:29 BMI result Body Mass Index 29.9 Tobacco/Smoking Status: Tobacco use Status Tobacco use date assessed 06/03/23 06/03/23 10:35 Patient Tobacco Use Status Former Tobacco user 06/03/23 10:35 e-Cigarette/Vaping Use Never Used 06/03/23 10:35 PHQ-9: PHQ-9 Score PHQ-9: Total score 0 06/03/23 11:15 Depression Screening Interpretation: Negative Thrive Assessment: Date of Thrive Assessment Date Thrive assessed 06/03/23 06/03/23 10:56 Const General: comfortable, no acute distress, alert and awake Nutritional Appearance: overweight Orientation/consciousness: patient oriented x3 HENMT Mouth: Normal oral and palatal mucosa present, tongue normal and moist mucous membranes Eyes General: appearance normal, both eyes and all related structures Neck Neck: Yes full ROM, Yes no lymphadenopathy and Yes supple Resp Auscultation: clear to auscultation bilaterally Cardio Rate: regular rate Rhythm: regular rhythm GI Palpation (GI): Soft to palpation, nontender, no guarding and no masses Auscultation: normal bowel sounds General: Yes no CVA tenderness Male General Exam: Yes normal external exam Back/Spine/Pelvis Back: no CVA tenderness and No back tenderness Skin General skin exam: no rashes or lesions noted Neuro General: patient oriented x3, tone normal, moves all extremities and no focal motor deficits Cranial nerves: Yes Normal hearing present Sensory Exam: No Sensory deficit (Neuro) Extrem General: Yes full ROM, Yes no joint enlargement and Yes no pedal edema Psych Appearance: grossly normal and well kempt Mental Status: mental status grossly normal Speech and movement: Normal speech and movement present Affect: normal affect Attitude: cooperative Thought process: Normal thought process present Results Reviewed Results Reviewed: RUN: 06/03/23 1049 PAGE 1 [facility] [address] [place] [id number] Wealth Management Manager: Cody Parker M.D. Specimen Inquiry Name: Trey Suarez Age/Sex: 58/M : 1965 Unit#: [id number] Attend Dr: Chloe Garrison MD Re05/22/23 Status: DEP REF Location: .LAB Disch: SPEC : [id number] NAVEED: 05/22/23 STATUS: COMP REQ : [id number] RECD: 05/22/[address]: Chloe Garrison MD COMP: 05/22/23 ENTERED: 05/22/[address] [facility] [address]: ORDERED: Met Prof Fast, AST, ALT, Lipid Panel Test Result Flag Reference Site Sodium 139 135-145 mmol/L Potassium 4.5 3.3-5.1 mmol/L CL 107 96-108 mmol/L CO2 25 22-29 mmol/L Gap 12 12-20 BUN 14 9-16 mg/dL Creat 0.84 0.5-1.4 mg/dL EGFR > 60 NOTE: For -[place] individuals, multiply the result by 1.210. Chronic Kidney Disease: Estimated GFR < 60 mL/min/1.73m2 Severe Kidney Disease: Estimated GFR < 15 mL/min/1 .73m2 FBS 95 60-99 mg/dL CA 10.8 # H 8.4-10.2 mg/dL AST (GOT) 35 5-37 U/L ALT (GPT) 36 0-40 U/L Triglyceride 87 <150 mg/dL Desirable Triglyceride: less than 150 mg/dL Borderline High Triglyceride 150-199 mg/dL High Triglyceride: 200-499 mg/dL Very High Triglyceride: greater than or equal to 5OO mg/dL Cholesterol 158 <200 mg/dL Desirable Cholesterol: less than 200 mg/dL Borderline High Cholesterol: 200-239 mg/dL High Cholesterol: greater than 239 mg/dL LDL Calculated 80 <100 mg/dL Desirable LDL: less than 100 mg/dL Near Optimal/Above Optimal LDL: 110-129 mg/dL Borderline High LDL: 130-159 mg/dL High LDL: 160-189 mg/dL Very High LDL: greater than or equal to 190 mg/dL HDL 61 >40 mg/dL Desirable HDL: greater than 40 mg/dL Note: This HDL assay may give artificially low results in patients with liver disease. ENTERED: 05/22/[address] [facility] [address]: ORDERED: Hgb A1c Test Result Flag Reference Site A1c % 6.2 H <6.0 % Hemoglobin A1C Reference Range Adults: 4.8 - 6.0 % Non diabetic: < 6.0 % Goal: < 7.0 % Additional Action Suggested: > 8.0 % Note: Hemoglobin A1c results are invalid for patients with abnormal amounts of HbF. Blood transfusions may impact the HbA1c concentration in the patient sample. Est. Avg. Gluc 131 mg/dL Assessment and Plan Assessment & Plan (1) Annual visit for general adult medical examination with abnormal findings: Code(s): Z00.01 - Encounter for general adult medical examination with abnormal findings Plan: Discuss recent lab results with patient.. Recommended dental visit every 6 months and regular eye exams, yearly diabetes retinopathy screening. Take adequate calcium in diet and vitamin-D 3 at 2000 IU per cap once a day, in addition to weight-bearing exercises to help maintain good muscle tone and weight control. Instructed to do self testicular exam to check for any mass. Is up-to-date with all his vaccinations, reminded to get his COVID booster flu shot. Referred back again to Dr. Borrego for his repeat colonoscopy (2) Tubular adenoma of colon: Comment: x 2 removed on screening colonoscopy 03/04/[address] Borrego Code(s): D12.6 - Benign neoplasm of colon, unspecified Plan: Referred to Dr. Borrego for repeat colonoscopy (3) Primary insomnia: Code(s): F51.01 - Primary insomnia Plan: Takes an occasional zolpidem as needed for insomnia (4) GERD (gastroesophageal reflux disease): Code(s): K21.9 - Gastro-esophageal reflux disease without esophagitis Qualifiers: Esophagitis presence: without esophagitis Qualified Code(s): K21.9 - Gastro-esophageal reflux disease without esophagitis Plan: Currently takes omeprazole 20 mg once a day as needed for heartburn symptoms (5) Obstructive sleep apnea: Code(s): G47.33 - Obstructive sleep apnea (adult) (pediatric) Plan: Followed by Pulmonary (6) Dyslipidemia: Code(s): E78.5 - Hyperlipidemia, unspecified Plan: Reviewed recent fasting lipid profile with patient with levels normal limb . Continue with rosuvastatin 5 mg daily , in addition to adherence to low- cholesterol diet and regular exercise, at least 30 minutes 3 to 4 times a week. Advised patient to make healthy food choices, eat more fruits, vegetables, whole grains, wild caught fish and low-fat dairy. Limit amount of meat and fried or fatty food products, as well as processed foods and fast foods. Follow-up scheduled with repeat fasting lipid panel in 3 months. (7) COPD (chronic obstructive pulmonary disease): Code(s): J44.9 - Chronic obstructive pulmonary disease, unspecified Qualifiers: COPD type: chronic bronchitis Chronic bronchitis type: simple Qualified Code(s): J41.0 - Simple chronic bronchitis Plan: Followed by Pulmonary, currently on Symbicort, Ventolin inhaler as needed and Incruse Ellipta. (8) Pulmonary nodule seen on imaging study: Comment: followed by pulmonary, Dr. rankin Code(s): R91.1 - Solitary pulmonary nodule (9) Coronary artery disease: Comment: Followed by Dr. Garzon Code(s): I25.10 - Atherosclerotic heart disease of [place] coronary artery without angina pectoris Qualifiers: Associated angina: without angina Coronary Disease-Associated Artery/Lesion type: [place] artery [place] vs. transplanted heart: [place] heart Qualified Code(s): I25.10 - Atherosclerotic heart disease of [place] coronary artery without angina pectoris (10) Type 2 diabetes mellitus without complication, without long-term current use of insulin: Code(s): E11.9 - Type 2 diabetes mellitus without complications Plan: Recent lab results reviewed with patient, with sugar and hemoglobin A1c stable and at goal . Continue with metformin 1000 mg twice a day. Reinforced diabetic diet and regular exercise with patient. Counseled regarding importance of yearly diabetes retinopathy screening. Patient advised to inspect feet daily, for any signs of injury, callus or infection. Compliance with diet and regular exercise again stressed. Blood pressure goal is less than 130/80, goal LDL is less than 100 and goal hemoglobin A1c is less than 7% follow-up appointment made in--3-months, after fasting labs done. (11) Essential hypertension: Code(s): I10 - Essential (primary) hypertension Plan: Blood pressure at goal of less than 130/80. Continue with current medication. Reinforced importance of following a low sodium diet, getting regular exercise, and lowering stress levels. Orders: Orders Alanine Aminotransferase 08/22/23 E11.9 - Type 2 diabetes mellitus without complications, E78.5 - Hyperlipidemia, unspecified, I10 - Essential (primary) hypertension, I25.10 - Atherosclerotic heart disease of [place] coronary artery without angina pectoris, Z12.5 - Encounter for screening for malignant neoplasm of prostate Basic Metabolic Panel Fasting 08/22/23 E11.9 - Type 2 diabetes mellitus without complications, E78.5 - Hyperlipidemia, unspecified, I10 - Essential (primary) hypertension, I25.10 - Atherosclerotic heart disease of [place] coronary artery without angina pectoris, Z12.5 - Encounter for screening for malignant neoplasm of prostate Microalbumin, Random (w Creat) 08/22/23 E11.9 - Type 2 diabetes mellitus without complications, E78.5 - Hyperlipidemia, unspecified, I10 - Essential (primary) hypertension, I25.10 - Atherosclerotic heart disease of [place] coronary artery without angina pectoris, Z12.5 - Encounter for screening for malignant neoplasm of prostate Aspartate Amino Transferase 08/22/23 E11.9 - Type 2 diabetes mellitus without complications, E78.5 - Hyperlipidemia, unspecified, I10 - Essential (primary) hypertension, I25.10 - Atherosclerotic heart disease of [place] coronary artery without angina pectoris, Z12.5 - Encounter for screening for malignant neoplasm of prostate Hemoglobin A1c 08/22/23 E11.9 - Type 2 diabetes mellitus without complications, E78.5 - Hyperlipidemia, unspecified, I10 - Essential (primary) hypertension, I25.10 - Atherosclerotic heart disease of [place] coronary artery without angina pectoris, Z12.5 - Encounter for screening for malignant neoplasm of prostate Lipid Panel 08/22/23 E11.9 - Type 2 diabetes mellitus without complications, E7 8.5 - Hyperlipidemia, unspecified, I10 - Essential (primary) hypertension, I25.10 - Atherosclerotic heart disease of [place] coronary artery without angina pectoris, Z12.5 - Encounter for screening for malignant neoplasm of prostate PSA,Total (Free>4and<10) 08/22/23 E11.9 - Type 2 diabetes mellitus without complications, E78.5 - Hyperlipidemia, unspecified, I10 - Essential (primary) hypertension, I25.10 - Atherosclerotic heart disease of [place] coronary artery without angina pectoris, Z12.5 - Encounter for screening for malignant neoplasm of prostate Referrals Gastroenterology Referral D12.6 - Benign neoplasm of colon, unspecified Coding Level of Care Code Est [facility] Care 40-64y([id number]) Diagnoses Annual visit for general adult medical examination with abnormal findings Z00.01 Tubular adenoma of colon D12.6 Primary insomnia F51.01 Gastroesophageal reflux disease without esophagitis K21.9 Esophagitis presence: without esophagitis Obstructive sleep apnea G47.33 Dyslipidemia E78.5 Simple chronic bronchitis J41.0 COPD type: chronic bronchitis Chronic bronchitis type: simple Pulmonary nodule seen on imaging study R91.1 Coronary artery disease involving [place] coronary artery of [place] heart without angina pectoris I25.10 Associated angina: without angina Coronary Disease-Associated Artery/Lesion type: [place] artery [place] vs. transplanted heart: [place] heart Type 2 diabetes mellitus without complication, without long-term current use of insulin E11.9 Essential hypertension I10 Additional Codes SHIRA-7 Assessment Billing - SHIRA-7 Assessment Tool: SHIRA-7 Assessment [id number] ([id number])
== END 2023-06-03 14:27 | disposition home or self-care (01) ==
PROVIDERS: Visit Provider Internal Medicine
DX: Z00.00 Encounter for general adult medical examination without abnormal findings (principal); K21.9 Gastro-esophageal reflux disease without esophagitis; J41.0 Simple chronic bronchitis; E11.9 Type 2 diabetes mellitus without complications; I10 Essential (primary) hypertension; D12.6 Benign neoplasm of colon, unspecified; F51.01 Primary insomnia; G47.33 Obstructive sleep apnea (adult) (pediatric); E78.5 Hyperlipidemia, unspecified; R91.1 Solitary pulmonary nodule; I25.10 Atherosclerotic heart disease of native coronary artery without angina pectoris
CPT/HCPCS: 99396

== ENCOUNTER 2023-07-01 09:38 | Outpatient (AMB) | payer OTHER, SELFPAY ==
[2023-07-01 09:40] VITALS: BMI 29.8
--- NOTE | 2023-07-01 09:40 | MHC.OFFVIS ---
Intake Vital Signs 07/01/23 09:40 Height 5 ft 6 in Weight 184 lb 11.958 oz BMI 29.8 Blood Pressure Location Lt brachial Position Sitting Intake Visit Reasons: Colonoscopy Screening Intake Note: Patient present to in office visit today for colonoscopy screening. CC: Patient reports last colonoscopy was done when he was 51 years old and they removed 3-4 polyps. Denies other GI symptoms. Allergies No Known Allergies Allergy (Verified 07/01/23 09:49) HPI Colonoscopy Screening HPI Details 58 year old? male here today for pre colonoscopy screening.? Patient was sent to us by his PCP. Last colonoscopy in 2016 showed tubular adenoma.? Patient denies any gastrointestinal symptoms in the past or at present.? Denies any personal or family history of gastrointestinal disease, colon polyps, or cancer.? Denies history of difficulty with sedation or anesthesia in the past.? History of sleep apnea not using CPAP machine.? Denies any history of cardiac, renal, pulmonary, or hepatic disease.?? No history of infectious? diseases like hepatitis A, B, C, HIV or tuberculosis.? Patient is not on any anticoagulation therapy. [facility] Medical History Skin tags, multiple acquired Tubular adenoma of colon Fatigue Trimalleolar fracture of left ankle Primary insomnia GERD (gastroesophageal reflux disease) Cervical radiculopathy due to degenerative joint disease of spine Obstructive sleep apnea Dyslipidemia Compression fracture of lumbar spine, non-traumatic COPD (chronic obstructive pulmonary disease) Pulmonary nodule seen on imaging study Coronary artery disease Type 2 diabetes mellitus without complication, without long-term current use of insulin Essential hypertension Surgical History Hx of colonoscopy Status post open reduction and internal fixation (ORIF) of fracture History of surgery Family History Father ETOH abuse Mother CVD (cardiovascular disease) Hx of CABG Brother No problems noted. Brother No problems noted. Sister No problems noted. Sister No problems noted. Sister No problems noted. Sister No problems noted. Sister No problems noted. Son No problems noted. Son No problems noted. Son No problems noted. Son No problems noted. Son No problems noted. 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 Cognitive needs: No Hearing needs: No Vision needs: No Review of Systems Const Denies weight gain and Denies weight loss ENT Reports no additional complaints, Denies dysphagia and Denies odynophagia Card Reports no additional complaints Resp Reports no additional complaints GI Denies abdominal pain, Denies belching, Denies melena, Denies bloating, Denies change in bowel habits, Denies dysphagia, Denies excessive flatus, Denies dyspepsia, Denies heartburn, Denies diarrhea, Denies loose stools, Denies nausea, Denies odynophagia and Denies vomiting Reports no additional complaints Musc Reports no additional complaints Neuro Reports no additional complaints Psych Reports no additional complaints Endo Reports no additional complaints Physical Exam Vital Signs: BMI result Body Mass Index 29.8 Const General: healthy appearing, no acute distress and well developed Nutritional Appearance: obese Orientation/consciousness: patient oriented x3 HEENT Head: Yes normal to inspection, Yes normocephalic and Yes atraumatic Face and sinus: Yes normal facial exam Mouth: Normal oral and palatal mucosa present Throat: Yes posterior oropharynx normal, Yes tonsils normal and Yes uvula midline Eyes General: appearance normal, both eyes and all related structures Neck Neck: Yes normal visual inspection, Yes full ROM and Yes trachea midline Thyroid: Thyroid normal Resp Effort & Inspection: normal respiratory effort, able to speak in complete sentences, no tracheal deviation and symmetric chest movement Auscultation: clear to auscultation bilaterally Cardio Rate: regular rate Heart sounds: S1 normal heart sound present and S2 normal heart sound present GI Inspection: Yes normal to inspection, No distended and Yes obesity Palpation (GI): Soft to palpation, not firm, nontender and No hepatosplenomegaly present Auscultation: normal bowel sounds General: Yes no CVA tenderness Back/Spine/Pelvis Back: no CVA tenderness Skin General skin exam: elasticity normal, turgor normal and dry skin Neuro General: patient oriented x3 Psych Appearance: grossly normal Mental Status: mental status grossly normal Assessment & Plan Assessment & Plan (1) Tubular adenoma of colon: Comment: x 2 removed on screening colonoscopy 03/04/[address] Borrego Code(s): D12.6 - Benign neoplasm of colon, unspecified (2) GERD (gastroesophageal reflux disease): Code(s): K21.9 - Gastro-esophageal reflux disease without esophagitis Qualifiers: Esophagitis presence: without esophagitis Qualified Code(s): K21.9 - Gastro-esophageal reflux disease without esophagitis (3) Screen for colon cancer: Code(s): Z12.11 - Encounter for screening for malignant neoplasm of colon Plan: Patient denies any GI, cardiac or respiratory symptoms.? Denies any issues with anesthesia in the past.? Patient has sleep apnea, unable to use CPAP machine. Patient states that he is unable to get any sleep when he uses it.? No history infectious diseases in the past or present.? Not on any anticoagulation therapy.? No family or personal history of colon cancer.? Patient denies melena, hematochezia, unintentional weight loss or ribbon like stools.? Discussed at length the pre-procedure,? prep, diet & medications as well as what to expect prior, during and after the procedure.?? Stressed the importance of good bowel prep. ?Recommended the use of Vaseline or Calmoseptine OTC & baby wipes with bowel movements to promote comfort.? ?Patient verbalizes understanding and agrees to plan of care.? He was given the opportunity to ask questions and all questions answered.? We will see him after the procedure.? Medications: New bisacodyl (Dulcolax (bisacodyl)) take 2 tabs at noon the day before your colonoscopy 20 mg (4 x 5 mg) PO ONCE 1 day 4 tabs 0RF Z12.11 - Encounter for screening for malignant neoplasm of colon polyethylene glycol 3350 (Miralax) As directed by gastroenterology department at [facility] 238 grams PO ONCE 238 grams 0RF Z12.11 - Encounter for screening for malignant neoplasm of colon Coding Level of Care Code New Pt Level 3 (24665) Diagnoses Tubular adenoma of colon D12.6 Gastroesophageal reflux disease without esophagitis K21.9 Esophagitis presence: without esophagitis Screen for colon cancer Z12.11 Time Spent (min) 40 Comment 30 minutes spent with patient and additional 10 minutes spent reviewing his records.
== END 2023-07-01 10:07 | disposition home or self-care (01) ==
PROVIDERS: PCP Internal Medicine; Visit Provider Nurse Practitioner Family
DX: D12.6 Benign neoplasm of colon, unspecified (principal); K21.9 Gastro-esophageal reflux disease without esophagitis; Z12.11 Encounter for screening for malignant neoplasm of colon
CPT/HCPCS: 99203

== ENCOUNTER → 2023-07-01 09:38 | Outpatient (BNVA) | payer OTHER, SELFPAY | PROVIDERS: PCP Internal Medicine; Visit Provider Nurse Practitioner Family ==

== ENCOUNTER 2023-09-03 06:41 | Outpatient (REF) | payer OTHER, SELFPAY ==
[2023-09-03 07:27] LABS: Estimated Average Glucose 137 mg/dL; Hemoglobin A1c % 6.4 % (<6.0)
[2023-09-03 07:31] LABS: Alanine Aminotransferase 23 U/L (0-40); Anion Gap 10 (12-20); Aspartate Amino Transferase 27 U/L (5-37); Blood Urea Nitrogen 11 mg/dL (9-16); Calcium 10.5 mg/dL (8.4-10.2); Carbon Dioxide 29 mmol/L (22-29); Chloride 104 mmol/L (96-108); Cholesterol 161 mg/dL (<200); Estimated Glomerular Filt Rate > 60; Glucose Fasting 105 mg/dL (60-99); HDL Cholesterol 66 mg/dL (>40); LDL Cholesterol Calculated 81 mg/dL (<100); Potassium 4.4 mmol/L (3.3-5.1); Sodium 139 mmol/L (135-145); Triglycerides 72 mg/dL (<150)
[2023-09-03 08:04] LABS: PSA,Total (Free>4and<10) 0.91 ng/mL (0.00-4.00)
[2023-09-03 08:38] LABS: Creatinine Urine 100.92 mg/dL; Microalbum/Creatinine Ratio Ur 80.2 ug/mg cr (<30)
== END 2023-09-03 06:42 | disposition home or self-care (01) ==
LOC: HO.LAB 06:41
PROVIDERS: PCP Internal Medicine; Visit Provider Internal Medicine
DX: Z12.5 Encounter for screening for malignant neoplasm of prostate (principal); I10 Essential (primary) hypertension; I25.10 Atherosclerotic heart disease of native coronary artery without angina pectoris; E11.9 Type 2 diabetes mellitus without complications; E78.5 Hyperlipidemia, unspecified
CPT/HCPCS: 36415; 80048; 80061; 82043; 82570; 83036; 84153; 84450; 84460

== ENCOUNTER 2023-11-01 06:55 | Outpatient (REF) | payer OTHER, SELFPAY ==
[2023-11-01 07:43] LABS: Estimated Average Glucose 128 mg/dL; Hemoglobin A1c % 6.1 % (<6.0)
[2023-11-01 08:02] LABS: Parathyroid Hormone Intact 108.6 pg/mL (8.7-77.1)
[2023-11-01 08:04] LABS: Alanine Aminotransferase 29 U/L (0-40); Albumin Level 4.6 g/dL (3.5-5.0); Alkaline Phosphatase 60 U/L (39-117); Anion Gap 15 (12-20); Aspartate Amino Transferase 26 U/L (5-37); Bilirubin Total 0.4 mg/dL (0.0-1.0); Blood Urea Nitrogen 11 mg/dL (9-16); Calcium 10.5 mg/dL (8.4-10.2); Carbon Dioxide 27 mmol/L (22-29); Chloride 104 mmol/L (96-108); Cholesterol 164 mg/dL (<200); Estimated Glomerular Filt Rate > 60; Glucose Fasting 112 mg/dL (60-99); HDL Cholesterol 74 mg/dL (>40); LDL Cholesterol Calculated 72 mg/dL (<100); Potassium 4.7 mmol/L (3.3-5.1); Sodium 141 mmol/L (135-145); Total Protein 7.7 g/dL (6.5-8.0); Triglycerides 94 mg/dL (<150)
[2023-11-01 08:21] LABS: Vitamin D 25-OH Total 32.4 ng/mL (>30)
[2023-11-01 10:36] LABS: Microalbum/Creatinine Ratio Ur 247.8 ug/mg cr (<30)
[2023-11-03 15:37] LABS: Calcium, Ionized 5.4 mg/dL (4.7-5.5)
== END 2023-11-01 06:56 | disposition home or self-care (01) ==
LOC: HO.LAB 06:55
PROVIDERS: PCP Internal Medicine; Visit Provider Internal Medicine
DX: K21.9 Gastro-esophageal reflux disease without esophagitis (principal); E78.5 Hyperlipidemia, unspecified; J41.0 Simple chronic bronchitis; I25.10 Atherosclerotic heart disease of native coronary artery without angina pectoris; E11.9 Type 2 diabetes mellitus without complications; I10 Essential (primary) hypertension
CPT/HCPCS: 36415; 80053; 80061; 82043; 82306; 82330; 82570; 83036; 83970

== ENCOUNTER 2023-11-03 11:36 | Outpatient (AMB) | payer OTHER, SELFPAY ==
[2023-11-03 11:40] VITALS: BP 124/80; PULSE 93; O2SAT 96; BMI 30.2
--- NOTE | 2023-11-03 11:40 | A.OFFPC_ITS ---
Vital Signs 11/03/23 11:40 Height 5 ft 6 in Weight 187 lb BMI 30.2 BP 124/80 Blood Pressure Location Lt brachial Position Sitting Pulse 93 Pulse Source Pulse Oximeter Pulse Oximetry (%) 96 Oxygen Delivery Method Room Air Intake Visit Reasons: 3M. F/U-DM/Lipids/Hypertension Intake Note: Pt is here today for his 3 mo. f/u DM,lipids and HTN Allergies No Known Allergies Allergy (Verified 11/03/23 12:16) Medication List - Last Reconciled 11/03/23 by Chloe Garrison MD acetaminophen ER (Tylenol Arthritis Pain) 650 mg PO Q12H PRN albuterol sulfate 90 mcg/actuation (Ventolin HFA) 2 puffs inhalation Q4H PRN albuterol sulfate 2.5 mg (3 mL) inhalation Q6H PRN blood sugar diagnostic As directed blood sugar diagnostic (FreeStyle Lite Strips) check blood sugar once a day AC budesonide-formoterol 160-4.5 mcg/actuation (Symbicort) 2 puffs PO BID lisinopril 20 mg PO DAILY metformin 1,000 mg PO BID nebulizers As directed omeprazole 20 mg PO DAILY PRN rosuvastatin 5 mg PO DAILY umeclidinium 62.5 mcg/actuation (Incruse Ellipta) 1 inh inhalation DAILY zolpidem 10 mg PO BEDTIME PRN 30 days Tobacco use date assessed: 11/03/23 Dental Screening Dental Screen Date: 11/03/23 Did you have a dental visit in the last 12 months?: No Was dental information given to patient?: No HPI 3M. F/U-DM/Lipids/Hypertension HPI Details 58-year-old male here today for follow-u p. He has diabetes mellitus, stable and controlled on present treatment, most recent hemoglobin A1c is at 6.1%. Has hypertension, with blood pressure within normal limits, and has hyperlipidemia, currently on rosuvastatin 5 mg daily with fasting lipids also within normal limits. It was noted however that he has hypercalcemia with elevated parathyroid hormone on recent labs. Referral ordered for him to be seen by endocrine. clinic . Complains of pain stiffness on medial aspect of left ankle, which has been present now for the last several days. Gets worse when the weather is cold and damp. Has been taking Arthritis Tylenol and applying Salonpas patch at night which affords only temporary relief. Has history of left trimalleolar ankle fracture status post already in 2019 with a plate still left in place [facility] Medical History Elevated parathyroid hormone Skin tags, multiple acquired Tubular adenoma of colon Fatigue Trimalleolar fracture of left ankle Primary insomnia GERD (gastroesophageal reflux disease) Cervical radiculopathy due to degenerative joint disease of spine Obstructive sleep apnea Dyslipidemia Compression fracture of lumbar spine, non-traumatic COPD (chronic obstructive pulmonary disease) Pulmonary nodule seen on imaging study Coronary artery disease Type 2 diabetes mellitus without complication, without long-term current use of insulin Essential hypertension Surgical History Hx of colonoscopy Status post open reduction and internal fixation (ORIF) of fracture History of surgery Family History Father ETOH abuse Mother CVD (cardiovascular disease) Hx of CABG Brother No problems noted. Brother No problems noted. Sister No problems noted. Sister No problems noted. Sister No problems noted. Sister No problems noted. Sister No problems noted. Son No problems noted. Son No problems noted. Son No problems noted. Son No problems noted. Son No problems noted. 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 1. Little interest or pleasure in doing things: not at all 2. Feeling down, depressed, or hopeless: not at all 3. Trouble falling or staying asleep, or sleeping too much: not at all 4. Feeling tired or having little energy: not at all 5. Poor appetite or overeating: not at all 6. Feeling bad about yourself - or that you are a failure or have let yourself or your family down: not at all 7. Trouble concentrating on things, such as reading the newspaper or watching television: not at all 8. Moving or speaking so slowly that other people could have noticed. Or the opposite - being so fidgety or restless that you have been moving around a lot more than usual: not at all 9. Thoughts that you would be better off or of hurting yourself in some way: not at all Total score: 0 Depression Screening Interpretation: Negative Depression Screening Done: Yes 72786 - PHQ-9 Billing: Yes Source: Developed by Drs. Milton Tracy, Loraine Jose, Donnell Causey and colleagues, with an educational paulino from [employer]. Thrive Questionnaire Date Thrive assessed: 11/03/23 I am a: Patient What is your living situation today?: I have a steady place to live Within the past 12 months, did the food you bought not last and you didn't have the money to get more?: Never true Within the past 12 months, did you worry whether your food would run out before you got money to buy more?: Never true Do you have trouble paying for medicines?: No Do you have trouble getting transportation to medical appointments?: No Do you have trouble paying your heating and electricity bill?: No Do you have trouble taking care of your child, family member or friend?: No Do you have trouble with day-to-day activities such as bathing, preparing meals, shopping, managing finances, etc.?: No Are you currently unemployed and looking for a job?: No Are you interested in more education?: No THRIVE Score: 0 AUDIT C Alcohol Use Questionnaire (AUDIT-C) 1. How often do you have a drink containing alcohol?: Never Total Score: 0 SHIRA-7 AMB Questionnaire SHIRA-7 Date SHIRA - 7 assessed: 11/03/23 Feeling nervous, anxious, or on edge: 0 = Not at all Not being able to stop or control worryin = Not at all Worrying too much about different things: 0 = Not at all Trouble relaxin = Not at all Being so restless that it is hard to sit still: 0 = Not at all Becoming easily annoyed or irritable: 0 = Not at all Feeling afraid as if something awful might happen: 0 = Not at all Total SHIRA-7 score (0-4 normal; 5-9 mild; 10-14 moderate; 15-21 severe): 0 Source: Developed by Drs. Milton Tracy, Loraine Jose, Donnell Causey and colleagues, with an educational paulino from [employer]. SHIRA-7 Assessment Billing SHIRA-7 Assessment Tool: SHIRA-7 Assessment 63250 Review of Systems Const Denies fatigue, Denies fever(s), Denies headache(s), Denies malaise, Denies night sweats and Denies poor appetite Eyes Details: [facility]es [facility] , up-to-date with his diabetic retinopathy screening, in no retinopathy seen, has pterygium left and bilateral pinguecula ENT Reports Normal hearing present, Denies dizziness, Denies dry mouth, Denies headache(s) and Denies sore throat Card Denies chest pain, Denies irregular heart rhythm, Denies lightheadedness and Denies dyspnea Resp Denies cough and Denies dyspnea GI Denies abdominal pain, Denies melena, Denies bloating, Denies hematochezia, Denies change in bowel habits, Denies heartburn and Denies nausea Denies hematuria and Denies difficulty urinating Musc Reports as per HPI Skin/Breast Denies rash Neuro Reports Normal hearing present, Denies Neuro-related abnormal movements, Denies burning sensations, Denies dizziness, Denies headache(s) and Denies Sensory deficit (Neuro) Psych Reports no additional complaints Endo Denies fatigue, Denies polyphagia, Denies polydipsia and Denies polyuria Hu/Lymph Denies easy bleeding and Denies lymphadenopathy Aller/Immun Reports no additional complaints Physical exam (Primary Care) Vital Signs: Last Vital Signs Pulse 93 11/03/23 11:40 BP 124/80 11/03/23 11:40 Pulse Ox 96 11/03/23 11:40 Oxygen Delivery Method Room Air 11/03/23 11:40 BMI result Body Mass Index 30.2 Tobacco/Smoking Status: Tobacco use Status Tobacco use date assessed 11/03/23 11/03/23 11:41 Patient Tobacco Use Status Former Tobacco user 11/03/23 11:41 e-Cigarette/Vaping Use Never Used 11/03/23 11:41 PHQ-9: PHQ-9 Score PHQ-9: Total score 0 11/03/23 12:19 Depression Screening Interpretation: Negative Thrive Assessment: Date of Thrive Assessment Date Thrive assessed 11/03/23 11/03/23 12:06 Const General: comfortable, no acute distress, alert and awake Nutritional Appearance: obese Orientation/consciousness: patient oriented x3 HENMT Mouth: Normal oral and palatal mucosa present, tongue normal and moist mucous membranes Eyes Other: Pterygium nasal left, bilateral pinguecula General: appearance normal, both eyes and all related structures Neck Neck: Yes full ROM, Yes no lymphadenopathy and Yes supple Resp Auscultation: clear to auscultation bilaterally Cardio Rate: regular rate Rhythm: regular rhythm GI Palpation (GI): Soft to palpation, nontender, no guarding and no masses Auscultation: normal bowel sounds General: Yes no CVA tenderness Back/Spine/Pelvis Back: no CVA tenderness and No back tenderness Skin General skin exam: no rashes or lesions noted Neuro General: patient oriented x3, tone normal, moves all extremities and no focal motor deficits Cranial nerves: Yes Normal hearing present Sensory Exam: No Sensory deficit (Neuro) Extrem General: Yes full ROM, Yes no joint enlargement and Yes no pedal edema Psych Appearance: grossly normal and well kempt Mental Status: mental status grossly normal Speech and movement: Normal speech and movement present Affect: normal affect Attitude: cooperative Thought process: Normal thought process present Results Reviewed Results Reviewed: SPEC : [id number] NAVEED: 11/01/23 STATUS: COMP REQ : [id number] RECD: 11/01/[address]: Chloe Garrison MD COMP: 11/01/23 ENTERED: 11/01/[address]: ORDERED: CMP Fast, Lipid Panel, Vitamin D 25-OH Test Result Flag Reference Sodium 141 135-145 mmol/L Potassium 4.7 3.3-5.1 mmol/L CL 104 96-108 mmol/L CO2 27 22-29 mmol/L Gap 15 12-20 BUN 11 9-16 mg/dL Creat 0.91 0.5-1.4 mg/dL EGFR > 60 NOTE: For -[place] individuals, multiply the result by 1.210. Chronic Kidney Disease: Estimated GFR < 60 mL/min/1.73m2 Severe Kidney Disease: Estimated GFR < 15 mL/min/1.73m2 FBS 112 H 60-99 mg/dL A fasting glucose from 100-125 mg/dl is considered impaired (pre-diabetes). CA 10.5 H 8.4-10.2 mg/dL Total Bili 0.4 0.0-1.0 mg/dL AST (GOT) 26 5-37 U/L ALT (GPT) 29 0-40 U/L Protein, Total 7.7 6.5-8.0 g/dL Alb 4.6 3.5-5.0 g/dL Triglyceride 94 <150 mg/dL Desirable Triglyceride: less than 150 mg/dL Borderline High Triglyceride 150-199 mg/dL High Triglyceride: 200-499 mg/dL Very High Triglyceride: greater than or equal to 5OO mg/dL Cholesterol 164 <200 mg/dL Desirable Cholesterol: less than 200 mg/dL Borderline High Cholesterol: 200-239 mg/dL High Cholesterol: greater than 239 mg/dL LDL Calculated 72 <100 mg/dL Desirable LDL: less than 100 mg/dL Near Optimal/Above Optimal LDL: 110-129 mg/dL Borderline High LDL: 130-159 mg/dL High LDL: 160-189 mg/dL Very High LDL: greater than or equal to 190 mg/dL HDL 74 >40 mg/dL Desirable HDL: greater than 40 mg/dL Note: This HDL assay may give artificially low results in patients with liver disease. Alk Phos 60 39-117 U/L Vit D 25-OH Tot 32.4 >30 ng/mL Health Based Reference Values* < 20 ng/mL Deficient 20-30 ng/mL Insufficient > 30 ng/mL Sufficient Laboratory Tests 11/01/23 07:14 Estimat Average Glucose 128 Hemoglobin A1c % 6.1 H Assessment and Plan Assessment & Plan (1) Elevated parathyroid hormone: Code(s): R79.89 - Other specified abnormal findings of blood chemistry Plan: With hypercalcemia, ionized calcium results still pending. Referred to see Dr. Forrest kimball at endocrine clinic in [facility] for further evaluation and management. (2) Dyslipidemia: Code(s): E78.5 - Hyperlipidemia, unspecified Plan: Reviewed recent fasting lipid profile with patient with levels within normal . Continue with rosuvastatin 5 mg daily , in addition to adherence to low- cholesterol diet and regular exercise, at least 30 minutes 3 to 4 times a week. Advised patient to make healthy food choices, eat more fruits, vegetables, whole grains, wild caught fish and low-fat dairy. Limit amount of meat and fried or fatty food products, as well as processed foods and fast foods. Repeat fasting labs in May 2024 (3) Type 2 diabetes mellitus without complication, without long-term current use of insulin: Code(s): E11.9 - Type 2 diabetes mellitus without complications Plan: Diabetes mellitus stable well controlled on present treatment, last hemoglobin A1c is 6.1%, up-to-date with his diabetes retinopathy screening, no retinopathy seen (4) Essential hypertension: Code(s): I10 - Essential (primary) hypertension Plan: Blood pressure at goal of less than 130/80. Continue with current medication. Reinforced importance of following a low sodium diet, getting regular exercise, and lowering stress levels. Coding Level of Care Code Est Pt Level 4 (48938) Diagnoses Elevated parathyroid hormone R79.89 Dyslipidemia E78.5 Type 2 diabetes mellitus without complication, without long-term current use of insulin E11.9 Essential hypertension I10 Additional Codes SHIRA-7 Assessment Billing - SHIRA-7 Assessment Tool: SHIRA-7 Assessment 08686 ([id number])
== END 2023-11-03 13:55 | disposition home or self-care (01) ==
PROVIDERS: PCP Internal Medicine; Visit Provider Internal Medicine
DX: R79.89 Other specified abnormal findings of blood chemistry (principal); E78.5 Hyperlipidemia, unspecified; E11.9 Type 2 diabetes mellitus without complications; I10 Essential (primary) hypertension
CPT/HCPCS: 99214

== ENCOUNTER 2024-01-07 09:06 | Day surgery (SDC) | payer OTHER, SELFPAY ==
[2024-01-02 14:20] VITALS: BMI 29.7
[2024-01-07 10:07] VITALS: BP 157/98; PULSE 70; RESP 18; TEMP 36.9; O2SAT 96
[2024-01-07 10:20] LABS: Glucose, Whole Blood 101 mg/dL (60-115)
[2024-01-07] MEDS: Lactated Ringers 1,000 ML 50 ML IVCONT (10:28)
--- NOTE | 2024-01-07 10:29 | MHC.SHP ---
Pre-Procedural Eval Section A - 24 Hr Update-Section A only Date of Service: 01/07/24 Section B - Complete if H&P > 30 days Chief Complaint: screening Relevant Family History (Specify if Yes): No Relevant Social History: None Present Medications: see Short Stay Collaborative assessment Medical History: Significant History ( Elevated parathyroid hormone Skin tags, multiple acquired Tubular adenoma of colon Fatigue Trimalleolar fracture of left ankle Primary insomnia GERD (gastroesophageal reflux disease) Cervical radiculopathy due to degenerative joint disease of spine Obstructive sleep apnea Dyslipidemia Compression f) History of Previous Operations: Relevant previous surgery/procedure and date(s) (Hx of colonoscopy Status post open reduction and internal fixation (ORIF) of fracture History of surgery) Allergies: Allergies Allergy/AdvReac Type Severity Reaction Status Date / Time No Known Allergies Allergy Verified 11/03/23 12:16 Review of Systems Sugical H&P ROS: Negative: Constitution, Cardiovascular, Respiratory, Neurological, Psychiatric, Hem-Onc, Allergic/Immunologic, Gastrointestinal, Genitourinary, Musculoskeletal, Integumentary, Endocrine and Eyes/Ears/Nose/Throat Exam Surgical H&P Exam: Normal: HEENT, Normal: Heart, Normal: Lungs, Normal: Extremities, Normal: Abdomen, Normal: Skin and Normal: Neurological Plan Diagnosis/Plan: Unchanged I have reviewed the history and physical and performed a pertinent physical examination on my patient. No changes have occurred unless specified. Time Spent With Patient Time: Total time managing care of this patient today ____ minutes.
--- NOTE | 2024-01-07 10:52 | HO.ANESPROP2 ---
HPI - Anesthesia Eval Consult details Narrative: for colon PMFSH Active Problems Active Problems: All Active Problems Elevated parathyroid hormone (Acute) Tubular adenoma of colon (Acute) Primary insomnia (Acute) GERD (gastroesophageal reflux disease) (Acute) Cervical radiculopathy due to degenerative joint disease of spine (Acute) Obstructive sleep apnea (Acute) Dyslipidemia (Acute) COPD (chronic obstructive pulmonary disease) (Acute) Pulmonary nodule seen on imaging study (Acute) Coronary artery disease (Acute) Type 2 diabetes mellitus without complication, without long-term current use of insulin (Acute) Essential hypertension (Acute) Past Medical History Medical History Elevated parathyroid hormone Skin tags, multiple acquired Tubular adenoma of colon Fatigue Trimalleolar fracture of left ankle Primary insomnia GERD (gastroesophageal reflux disease) Cervical radiculopathy due to degenerative joint disease of spine Obstructive sleep apnea Dyslipidemia Compression fracture of lumbar spine, non-traumatic COPD (chronic obstructive pulmonary disease) Pulmonary nodule seen on imaging study Coronary artery disease Type 2 diabetes mellitus without complication, without long-term current use of insulin Essential hypertension Family History Family History Father ETOH abuse Mother CVD (cardiovascular disease) Hx of CABG Brother No problems noted. Brother No problems noted. Sister No problems noted. Sister No problems noted. Sister No problems noted. Sister No problems noted. Sister No problems noted. Son No problems noted. Son No problems noted. Son No problems noted. Son No problems noted. Son No problems noted. Family history of problems with anesthesia: No Surgical History Surgical History Hx of colonoscopy Status post open reduction and internal fixation (ORIF) of fracture History of surgery History of Problems with Anesthesia: No Social History Social History Household Members: Spouse Housing: Apartment Do you presently have visiting nurse or other home services: No Alcohol intake: never Patient Tobacco Use Status: Former Tobacco user Years Smoked: 25 yrs e-Cigarette/Vaping Use: Never Used Second Hand Smoke Exposure: No Are you DNR?: No Advance Directives: No Advance Directives Information Provided: Yes Recently lost weight without trying: No Nutrition Risks: No Nutritional Risk service: No Current occupational status: disabled 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4 F 01/07/24 10:07 Pulse 70 01/07/24 10:07 Resp 18 01/07/24 10:07 BP 157/98 H 01/07/24 10:07 Pulse Ox 96 01/07/24 10:07 O2 Del Method Room Air 01/07/24 10:07 Pertinent Lab Results Pertinent Lab Results: Laboratory Tests 01/07/24 10:14 POC Glucose 101 Airway Mallampati Class: II TM Dist: >3cm Neck ROM: Full Heart: rrr Lungs: cta Assessment and Plan Assessment Anesthesia Assessment: Anesthesia Plan Discussed and Chart Reviewed Final Anesthetic Review Family History of Problems with Anesthesia: No History of Problems with Anesthesia: No NPO: Yes ASA Class: III Final Preanesthetic Review: No Changes in Pt Med Stat, Meds/Allgs Chart Reviewed, Consent Obtained/Reviewed and Anes Risks/Benef Reviewed Patient Risk: Intermediate Procedure Risk: Low Anesthetic Plan Anesthetic Plan: MAC: Disposition: Standard PACU
--- NOTE | 2024-01-07 11:46 | P.OP_ITS ---
Operative Note Operative Note Date of Service: 01/07/24 Narrative: Operative Information Procedure Description: Colonoscopy Indication: screening Anesthesia: MAC COLONOSCOPY Instrument: Olympus variable stiffness pediatric scope 190L Colonoscopy Monitoring: Vital signs and clinical assessment, continuous EKG monitoring, Pulse oximetry, Carbon Dioxide monitoring and blood pressure monitoring were done throughout the procedure. Colon withdrawal time was 13 minutes. Procedure: The patient was placed in the left lateral decubitis position and pre-procedure medications were administered. After a digital rectal examination of the ano-rectum, the video colonoscope was inserted into the rectum and advanced through the colon to the cecum/TI. The colonoscope was slowly withdrawn in a retrograde panoramic fashion and the colon mucosa was carefully examined including a retroflexed view of the rectum. Findings and interventions are described below. Procedure Difficulty: moderate Findings: Terminal Ileum-normal Cecum:normal Ascending Colon: 3-6 mm sessile polyp removed with cold forceps Transverse Colon -normal Descending Colon:normal Sigmoid Colon: x4 sessile polyps 10-12 mm removed with cold snare Rectum: Retroflexion with small internal hemorrhoids seen, grade I, x2 sessile polyps removed with cold snare Anorectum - normal Intervention: codl snare and cold forceps Colon preparation: [place] Bowel Preparation Scale Right colon; 1 Transverse colon: 1-2 Left colon; 1-2 (0 = Unprepared colon segment with mucosa not seen due to solid stool that cannot be cleared. 1 = Portion of mucosa of the colon segment seen, but other areas of the colon se gment not well seen due to staining, residual stool and/or opaque liquid. 2 = Minor amount of residual staining, small fragments of stool and/or opaque liquid, but mucosa of colon segment seen well. 3 = Entire mucosa of colon segment seen well with no residual staining, small fragments of stool or opaque liquid) Impression and Post Procedure Diagnosis: colon polyps internal hemorrhoids Plan: High fiber diet leaflet Avoid straining at stool, epsom salts and sitz bath, anusol supps or cream Repeat Colonoscopy in 6-12 months due to fair to poor prep in some areas or earlier if clinically indicated --prep compliance next time Above findings were reviewed with the patient and relevant handouts were provided if indicated.
[2024-01-07 11:50] VITALS: BP 110/73; PULSE 78; RESP 17; TEMP 36.6; O2SAT 98
[2024-01-07 12:05] VITALS: BP 128/85; PULSE 80; RESP 18; TEMP 36.5; O2SAT 99
== END 2024-01-07 12:42 | disposition home or self-care (01) ==
PROVIDERS: PCP Internal Medicine; Visit Provider Internal Medicine Gastroenterology
PROC: 0DJD8ZZ Inspection of Lower Intestinal Tract, Via Natural or Artificial Opening Endoscopic (ICD-10-PCS; CPT 45378; principal; 2024-01-07 12:00)
DX: Z12.11 Encounter for screening for malignant neoplasm of colon (principal); D12.2 Benign neoplasm of ascending colon; D12.8 Benign neoplasm of rectum; K64.0 First degree hemorrhoids; Z86.010 Personal history of colon polyps; E11.9 Type 2 diabetes mellitus without complications; I10 Essential (primary) hypertension; J44.9 Chronic obstructive pulmonary disease, unspecified
CPT/HCPCS: 45385; 45380; 82947; 88305; J2704

== ENCOUNTER → 2024-01-07 09:06 | Outpatient (BNV) | payer OTHER, SELFPAY | PROVIDERS: PCP Internal Medicine; Visit Provider Internal Medicine Gastroenterology | DX: Z12.11 Encounter for screening for malignant neoplasm of colon (principal); D12.2 Benign neoplasm of ascending colon; D12.5 Benign neoplasm of sigmoid colon; D12.8 Benign neoplasm of rectum; K64.0 First degree hemorrhoids | CPT/HCPCS: 45380; 45385 ==

== ENCOUNTER 2024-01-21 11:56 | Outpatient (AMB) | payer OTHER, SELFPAY ==
--- NOTE | 2024-01-21 12:00 | MHC.OFFVIS ---
Vital Signs 01/21/24 12:06 Height 5 ft 6 in Weight 185 lb 3.013 oz BMI 29.9 BP 143/93 H Blood Pressure Location Lt brachial Position Sitting Pulse 67 Intake Visit Reasons: s/p colon [place] Intake Note: Patient is seen in office for post op assessment post colonoscopy. 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 Denies any issues with anesthesia in the past.? Patient has sleep apnea, unable to use CPAP machine. Patient states that he is unable to get any sleep when he uses it.? No history infectious diseases in the past or present.? Not on any anticoagulation therapy.? No family or personal history of colon cancer.? Patient denies melena, hematochezia, unintentional weight loss or ribbon like stools.? Discussed at length the pre-procedure,? prep, diet & medications as well as what to expect prior, during and after the procedure.?? Stressed the importance of good bowel prep. ?Recommended the use of Vaseline or Calmoseptine OTC & baby wipes with bowel movements to promote comfort.? ?Patient verbalizes understanding and agrees to plan of care.? He was given the opportunity to ask questions and all questions answered.? We will see him after the procedure.? Plan Medications New bisacodyl (Dulcolax (bisacodyl)) take 2 tabs at noon the day before your colonoscopy 20 mg (4 x 5 mg) PO ONCE 1 day 4 tabs 0RF Z12.11 polyethylene glycol 3350 (Miralax) As directed by gastroenterology department at [facility] 238 grams PO ONCE 238 grams 0RF Z12.11 COLONOSCOPY: Findings: Terminal Ileum-normal Cecum:normal Ascending Colon: 3-6 mm sessile polyp removed with cold forceps Transverse Colon -normal Descending Colon:normal Sigmoid Colon: x4 sessile polyps 10-12 mm removed with cold snare Rectum: Retroflexion with small internal hemorrhoids seen, grade I, x2 sessile polyps removed with cold snare Anorectum - normal Intervention: codl snare and cold forceps Colon preparation: [place] Bowel Preparation Scale Right colon; 1 Transverse colon: 1-2 Left colon; 1-2 (0 = Unprepared colon segment with mucosa not seen due to solid stool that cannot be cleared. 1 = Portion of mucosa of the colon segment seen, but other areas of the colon segment not well seen due to staining, residual stool and/or opaque liquid. 2 = Minor amount of residual staining, small fragments of stool and/or opaque liquid, but mucosa of colon segment seen well. 3 = Entire mucosa of colon segment seen well with no residual staining, small fragments of stool or opaque liquid) Impression and Post Procedure Diagnosis: colon polyps internal hemorrhoids Plan: High fiber diet leaflet Avoid straining at stool, epsom salts and sitz bath, anusol supps or cream Repeat Colonoscopy in 6-12 months due to fair to poor prep in some areas or earlier if clinically indicated --prep compliance next time PATHOLOGY RESULTS: Diagnosis A. Colon, ascending, polyp: Tubular adenoma; negative for high-grade dysplasia and carcinoma. B. Colon, sigmoid/rectal, polyps: Tubular adenomas (3 pieces); negative for high-grade dysplasia and carcinoma, and hyperplastic polyps (multiple pieces) TODAY'S VISIT Patient is here today for follow-up and to discuss colonoscopy results. Patient denies any ill effects from the prep, anesthesia or procedure itself. Tubular adenoma found without high-grade dysplasia or carcinoma. Patient had suboptimal prep and will need to return for colorectal screening in 6-12 months. Sigmoid polyps were retrieved in 3 pieces and it showed tubular adenoma. Rectal polyp hyperplastic polyp. Patient reports that he is moving his bowels well. Patient did clear liquid diet and follow the prep instructions. Patient might need to do additional Dulcolax before the procedure. Patient denies any melena, hematochezia, unintentional weight loss or ribbon like stools. Denies any dyspepsia, dysphagia or odynophagia. [facility] Medical History Elevated parathyroid hormone Skin tags, multiple acquired Tubular adenoma of colon Fatigue Trimalleolar fracture of left ankle Primary insomnia GERD (gastroesophageal reflux disease) Cervical radiculopathy due to degenerative joint disease of spine Obstructive sleep apnea Dyslipidemia Compression fracture of lumbar spine, non-traumatic COPD (chronic obstructive pulmonary disease) Pulmonary nodule seen on imaging study Coronary artery disease Type 2 diabetes mellitus without complication, without long-term current use of insulin Essential hypertension Surgical History Hx of colonoscopy Status post open reduction and internal fixation (ORIF) of fracture History of surgery Family History Father ETOH abuse Mother CVD (cardiovascular disease) Hx of CABG Brother No problems noted. Brother No problems noted. Sister No problems noted. Sister No problems noted. Sister No problems noted. Sister No problems noted. Sister No problems noted. Son No problems noted. Son No problems noted. Son No problems noted. Son No problems noted. Son No problems noted. 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 Cognitive needs: No Hearing needs: No Vision needs: No Review of Systems Const Denies weight gain and Denies weight loss ENT Reports no additional complaints, Denies dysphagia and Denies odynophagia Card Reports no additional complaints Resp Reports no additional complaints GI Denies abdominal pain, Denies belching, Denies melena, Denies bloating, Denies change in bowel habits, Denies dysphagia, Denies excessive flatus, Denies dyspepsia, Denies heartburn, Denies diarrhea, Denies loose stools, Denies nausea, Denies odynophagia and Denies vomiting Reports no additional complaints Musc Reports no additional complaints Neuro Reports no additional complaints Psych Reports no additional complaints Endo Reports no additional complaints Physical Exam Vital Signs: Last Vital Signs Pulse 67 01/21/24 12:06 BP 143/93 H 01/21/24 12:06 BMI result Body Mass Index 29.9 Const General: healthy appearing and no acute distress Nutritional Appearance: obese Orientation/consciousness: patient oriented x3 Resp Effort & Inspection: normal respiratory effort, able to speak in complete sentences, no tracheal deviation and symmetric chest movement Auscultation: clear to auscultation bilaterally Cardio Rate: regular rate GI Inspection: Yes normal to inspection, No distended and Yes obesity Palpation (GI): Soft to palpation, not firm, nontender and No hepatosplenomegaly present Auscultation: normal bowel sounds General: Yes no CVA tenderness Back/Spine/Pelvis Back: no CVA tenderness Skin General skin exam: elasticity normal, turgor normal and dry skin Neuro General: patient oriented x3 Psych Appearance: grossly normal Mental Status: mental status grossly normal Assessment & Plan Assessment & Plan (1) Tubular adenoma of colon: Code(s): D12.6 - Benign neoplasm of colon, unspecified Category: Medical (2) GERD (gastroesophageal reflux disease): Code(s): K21.9 - Gastro-esophageal reflux disease without esophagitis Category: Medical Qualifiers: Esophagitis presence: without esophagitis Qualified Code(s): K21.9 - Gastro-esophageal reflux disease without esophagitis (3) Status post colonoscopy: Code(s): Z98.890 - Other specified postprocedural states Plan Tubular adenoma found on colonoscopy with doubt high-grade dysplasia or carcinoma. Suboptimal prep and patient will need to return for colorectal screening in 6-12 months. Patient will return to the office in 3 months making sure that he is moving his bowels well. Patient was encouraged to increase fluid intake and activity to promote better bowel motility. Continue taking omeprazole for acid reflux. Patient only takes it on as needed basis. He is agreeable to this plan and verbalizes understanding of instructions. He was given the opportunity to ask questions and all questions answered. Thank you for allowing me to participate in his care Coding Level of Care Code Est Pt Level 3 (26627) Diagnoses Tubular adenoma of colon D12.6 Gastroesophageal reflux disease without esophagitis K21.9 Esophagitis presence: without esophagitis Status post colonoscopy Z98.890 Time Spent (min) 30 Comment 20 minutes spent with patient and additional 10 minutes spent reviewing his records
[2024-01-21 12:06] VITALS: BP 143/93; PULSE 67; BMI 29.9
== END 2024-01-21 12:38 | disposition home or self-care (01) ==
PROVIDERS: PCP Internal Medicine; Visit Provider Nurse Practitioner Family
DX: D12.6 Benign neoplasm of colon, unspecified (principal); K21.9 Gastro-esophageal reflux disease without esophagitis; Z98.890 Other specified postprocedural states
CPT/HCPCS: 99213

== ENCOUNTER → 2024-01-21 11:56 | Outpatient (BNVA) | payer OTHER, SELFPAY | PROVIDERS: PCP Internal Medicine; Visit Provider Nurse Practitioner Family | DX: K21.9 Gastro-esophageal reflux disease without esophagitis (principal); D12.6 Benign neoplasm of colon, unspecified; Z98.890 Other specified postprocedural states | CPT/HCPCS: 99212 ==

== ENCOUNTER 2024-03-18 04:10 | Inpatient (IN) | payer OTHER, SELFPAY ==
[2024-03-18] VITALS (12 sets, daily range): BP systolic 137–183; BP diastolic 73–102; PULSE 99–129; RESP 14–25; TEMP 36–37.6; O2SAT 94–96; BMI 30.3
--- NOTE | ~2024-03-18 | XR_ITS ---
A full preliminary report was issued during dynamic procedures. Patient name: AMARILIS PROCTOR EXAMINATION: XR CHEST CLINICAL INFORMATION: COPD, cough COMPARISON: None available. TECHNIQUE: Frontal view of the chest was obtained. FINDINGS: Cardiac and mediastinal contours are normal. EKG leads overlie the chest. Pulmonary vasculature is normal. Lung volumes are normal. No consolidation, pneumothorax, or pleural effusion. Degenerative spondylosis is suspected in the thoracic spine. No acute osseous findings XR/XR chest 1V IMPRESSION: No acute pulmonary disease.
--- NOTE | ~2024-03-18 | CT_ITS ---
EXAMINATION: CT ANGIOGRAM OF THE CHEST WITH AND WITHOUT CONTRAST (CT PULMONARY ANGIOGRAM FOR PE) CLINICAL INFORMATION: Reason for Exam tachycardic, SOB COMPARISON: CT chest 04/02/2023 TECHNIQUE: Prior to contrast administration, noncontrast localization images were obtained. Subsequently, multidetector volumetric imaging was performed from the thoracic inlet to below the diaphragms following the administration of 60 mL Omnipaque 350 intravenous contrast. No contrast reaction reported Sagittal, coronal, and MIP oblique sagittal reformatted images were obtained on the CT workstation, uploaded to PACS, and reviewed. This CT examination was performed using dose optimization techniques as appropriate, variously including the following: *Automated exposure control *Adjustment of mA and/or kV according to patient size (this includes techniques or standardized protocols for targeted exams where dose is matched to indication/reason for exam; i.e. extremities or head) *Use of iterative reconstruction technique Total exam dose-length product 223 mGy-cm FINDINGS: QUALITY OF STUDY/CONTRAST BOLUS: Satisfactory. PULMONARY ARTERIES: No pulmonary emboli. THORACIC AORTA: No aneurysm. LUNG: There are two 3 mm nodules seen in the left lower lobe (7:139 and 229) which are unchanged when compared to the prior study with no new, increasing sized or concerning pulmonary nodule is seen. No focal consolidation PLEURA: No pleural effusion or pneumothorax. MEDIASTINUM: Normal heart size. No pericardial effusion. No hilar or mediastinal lymphadenopathy. No evidence of septal bowing or right heart strain. CORONARY ARTERY CALCIFICATION: Moderate CHEST WALL/AXILLA: No axillary or internal mammary lymphadenopathy. OSSEOUS STRUCTURES: No acute or suspicious osseous abnormality. Old healed left rib fractures are seen. UPPER ABDOMEN: There is hepatic steatosis again seen. No reflux of contrast into the hepatic veins to suggest elevated right heart pressures. CT/CT angio chest PE protocol IMPRESSION: 1. No evidence of pulmonary emboli. 2. No acute intrathoracic disease to account for the patient's tachypnea and shortness of breath. 3. Incidental note made of stable 3 mm left lower lobe pulmonary nodules, hepatic steatosis and moderate coronary artery calcifications. VTE: negative.
--- NOTE | 2024-03-18 06:30 | ED_ITS ---
HPI - General Adult General Chief complaint: Dyspnea Stated complaint: Shortness of breath Time Seen by Provider: 03/18/24 06:30 Source: patient Mode of arrival: ambulatory Limitations: no limitations History of Present Illness ED Provider: Aissatou García PA-C HPI narrative: Patient is a 59 year old assigned male at with a history of GERD, HTN, DM, CAD, and COPD presenting to the emergency department today with increased shortness of breath / difficulty breathing. Patient states that over the last 3 days he has been having markedly increased shortness of breath and difficulty breathing even while using his home duonebs and inhalers. Patient denies any dizziness, lightheadedness, abdominal pain, nausea, vomiting, fever, chills, blurry vision, double vision, loss of vision, chest pain, back pain, night sweats, pain with urination, increased urinary frequency, increased urinary urgency, blood in his urine or stool, syncope or a near syncopal episode, recent trauma or falls, bowel incontinence, bladder incontinence, or any other complaints at this time. Onset (ago): day(s) (3) Relieving factors: none Exacerbating factors: none Associated symptoms: shortness of breath Treatments prior to arrival: other (home inhalers and duonebs) Related Data Home Medications ?Medication ?Instructions ?Recorded ?Confirmed blood sugar diagnostic #10 ea 08/02/20 12/03/21 nebulizers 04/21/23 rosuvastatin 5 mg tablet 5 mg PO BEDTIME 03/18/24 03/18/24 Previous Rx's ?Medication ?Instructions ?Recorded acetaminophen 650 mg 650 mg PO Q12H PRN fever or pain 06/13/22 tablet,extended release (Tylenol #60 tabs Arthritis Pain) albuterol sulfate 2.5 mg/3 mL 2.5 mg (3 mL) inhalation Q6H PRN 04/21/23 (0.083 %) solution for nebulization for dyspnea #180 mL budesonide-formoterol HFA 160 2 puff PO BID #10.2 grams 09/12/23 mcg-4.5 mcg/actuation aerosol inhaler (Symbicort) zolpidem 10 mg tablet 10 mg PO BEDTIME PRN sleep 30 days 12/15/23 #30 tabs omeprazole 20 mg capsule,delayed 20 mg PO DAILY PRN heartburn #90 12/23/23 release caps blood sugar diagnostic (FreeStyle #100 ea 01/02/24 Lite Strips) metformin 1,000 mg tablet 1,000 mg PO BID #180 tabs 01/15/24 umeclidinium 62.5 mcg/actuation 1 inh PO DAILY #30 ea 01/15/24 blister powder for inhalation (Incruse Ellipta) lisinopril 20 mg tablet 20 mg PO DAILY #90 tabs 02/11/24 albuterol sulfate 90 mcg/actuation 2 puff PO Q4H PRN for dyspnea #18 03/08/24 aerosol inhaler (Ventolin HFA) grams Allergies Allergy/AdvReac Type Severity Reaction Status Date / Time No Known Allergies Allergy Verified 01/21/24 12:05 Review of Systems 2 Constitutional: Constitutional: Reports no additional constitutional complaints, Denies chills, Denies fever(s) and Denies night sweats Eyes: Eyes: Reports no additional eye complaints, Denies blurry vision, Denies change in vision, Denies diplopia, Denies eye discharge, Denies loss of vision and Denies eye pain ENT: Denies dizziness Cardiovascular: Cardiovascular: Reports no additional cardiovascular complaints, Denies chest pain, Denies lightheadedness, Denies Loss of Consciousness and Reports dyspnea Respiratory: Respiratory: Reports dyspnea Gastrointestinal: Gastrointestinal: Reports no additional gastrointestinal complaints, Denies abdominal pain, Denies melena, Denies hematochezia, Denies change in bowel habits and Denies change in stool character Genitourinary: Genitourinary: Reports no additional male genitourinary complaints, Denies hematuria, Denies oliguria, Denies difficulty urinating, Denies dysuria, Denies urinary frequency, Denies urinary hesitancy, Denies urinary incontinence and Denies urinary urgency Musculoskeletal: Musculoskeletal: Reports no additional musculoskeletal complaints, Denies numbness and Denies tingling Neurologic: Denies dizziness, Denies loss of vision, Denies numbness and Denies tingling Psychiatric: Psychiatric: Reports no additional psychiatric complaints Endocrine: Endocrine: Reports no additional endocrine complaints Hematologic/Lymphatic: Hematologic/Lymphatic: Reports no additional hematologic/lymphatic complaints Allergic/Immunologic: Allergic/Immunologic: Reports no additional allergic/immunologic complaints PMFSH Past Medical History Attestation statement: The following information was validated with the patient. Source: old records reviewed and nursing notes reviewed Medical History Elevated parathyroid hormone Skin tags, multiple acquired Tubular adenoma of colon Fatigue Trimalleolar fracture of left ankle Primary insomnia GERD (gastroesophageal reflux disease) Cervical radiculopathy due to degenerative joint disease of spine Obstructive sleep apnea Dyslipidemia Compression fracture of lumbar spine, non-traumatic COPD (chronic obstructive pulmonary disease) Pulmonary nodule seen on imaging study Coronary artery disease Type 2 diabetes mellitus without complication, without long-term current use of insulin Essential hypertension Surgical History Hx of colonoscopy Status post open reduction and internal fixation (ORIF) of fracture History of surgery Family History Family History Father ETOH abuse Mother CVD (cardiovascular disease) Hx of CABG Brother No problems noted. Brother No problems noted. Sister No problems noted. Sister No problems noted. Sister No problems noted. Sister No problems noted. Sister No problems noted. Son No problems noted. Son No problems noted. Son No problems noted. Son No problems noted. Son No problems noted. Social History Social History Household Members: Spouse Housing: Apartment Do you presently have visiting nurse or other home services: No Alcohol intake: current Alcohol intake frequency: a few times a month Alcohol type: beer Patient Tobacco Use Status: Former Tobacco user Years Smoked: 25 yrs Smoked in Last 30 Days: No e-Cigarette/Vaping Use: Never Used Second Hand Smoke Exposure: No Use of substances other than those prescribed or required for medical reasons: No Advance Directives: No Advance Directives Information Provided: No Do you have a plan to hurt others: No Plan service: No Current occupational status: disabled 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 Cognitive needs: No Hearing needs: No Vision needs: No Physical Exam ED Vital Signs: Vital Signs - 24 hr 03/18/24 06:27 03/18/24 07:18 03/18/24 07:26 Temperature 98.5 F Pulse Rate 110 H 107 H 114 H Respiratory Rate 18 14 22 H Blood Pressure 162/85 H 183/92 H Pulse Oximetry 94 94 Oxygen Delivery Method Room Air Room Air 03/18/24 08:42 03/18/24 08:49 03/18/24 11:39 Temperature 99.7 F Pulse Rate 129 H 121 H 104 H Respiratory Rate 21 H 21 H 25 H Blood Pressure 137/97 H 147/76 H Pulse Oximetry 95 94 Oxygen Delivery Method Room Air Room Air Const General: cooperative, no acute distress, alert and awake Nutritional Appearance: well nourished Orientation/consciousness: patient oriented x3 Limitations: no limitations HENMT Head: Yes normal to inspection and Yes atraumatic Ears: hearing grossly normal bilaterally and external ears normal General nose exam: Normal external nose present, no nasal discharge noted and no epistaxis Face and sinus: Yes normal facial exam, No abrasion and No laceration Mouth: Normal oral and palatal mucosa present, no drooling and no muffled voice Eyes General: appearance normal, both eyes and all related structures Periorbital: periorbital findings normal Eyelids: Yes eyelids normal Conjunctivae: conjunctivae normal Pupils: Equal, round and reactive pupils present EOM: EOMs intact bilaterally Neck Neck: Yes normal visual inspection, Yes full ROM and Yes no lymphadenopathy Chest Chest palpation & inspection: normal inspection of the chest Resp Effort & Inspection: able to speak in complete sentences, audible wheezes and labored Auscultation: wheezes scattered wheezes Cardio Rate: tachycardic Rhythm: regular rhythm GI Inspection: Yes normal to inspection Neuro General: patient oriented x3 and moves all extremities Cranial nerves: Yes Equal, round and reactive pupils present Cognition (Neuro): normal cognition Motor exam (neuro): 5/5 motor strength present throughout Sensory Exam: Normal double simultaneous stimulation for sensation Coordination: [id number] test normal Extrem General: Yes normal to inspection, Yes full ROM and Yes capillary refill normal Psych Appearance: grossly normal Mental Status: mental status grossly normal Affect: normal affect Attitude: cooperative Thought process: Normal thought process present Thought content: Normal thought content present Insight: Good insight present (Psych) Medications Administered Generic Name Dose Route Start Last Admin Trade Name Freq PRN Reason Stop Dose Admin Magnesium Sulfate 2 gm in 50 mls @ 25 mls/hr 03/18/24 12:04 03/18/24 12:21 Magnesium Sulfate/H2o IV 03/18/24 14:03 25 mls/hr ONCE ONE Administration Discontinued Medications Generic Name Dose Route Start Last Admin Trade Name Freq PRN Reason Stop Dose Admin Levalbuterol HCl 2.5 mg/ 0 mg 03/18/24 07:20 03/18/24 07:25 Ipratropium [employer] 0.5 mg INHALE 03/18/24 07:21 1 dose ONCE ONE Administration Levalbuterol HCl 1.25 mg/ 0 mg 03/18/24 08:45 03/18/24 08:48 Ipratropium [employer] 0.5 mg INHALE 03/18/24 08:46 1 dose ONCE ONE Administration Ceftriaxone Sodium 1 gm/ 50 mls @ 100 mls/hr 03/18/24 08:02 03/18/24 09:36 Sodium Chloride IV 03/18/24 08:31 Infused ONCE ONE Infusion Iohexol 100 ml 03/18/24 09:56 03/18/24 09:56 Iohexol 350 Mg/Ml 100 Ml Infus..Btl IV 03/18/24 09:57 60 ml ONCE ONE Administration Methylprednisolone Sodium Succinate 60 mg 03/18/24 07:10 03/18/24 08:41 Methylprednisolone Sod Succ 125 Mg/2 Ml Vial IVPUSH 03/18/24 07:11 60 mg ONCE ONE Administration Medical Decision Making Medical Decision Making MDM Narrative: Patient is a 59 year old assigned male at with a history of GERD, HTN, DM, CAD, and COPD presenting to the emergency department today with increased shortness of breath / difficulty breathing. Patient's physical exam was as noted in the physical exam portion of this note. Patient's blood work was unremarkable. Patient's initial and repeat EKGs showed sinus tachycardia. Patient's chest x-ray showed no acute process. Patient's CT PE showed no acute process. Patient's influenza test was positive. Patient was given IV ceftriaxone to cover for superimposed infection however, the patient's clinical presentation is not consistent with sepsis (@1206). Patient was given breathing treatments, IV steroids, and IV magnesium but continued to have shortness of breath. I spoke to the hospitalist team who agreed to admission. I explained my physical exam findings as well as all test results to the patient. I answered all questions asked by the patient. Patient verbalized agreement and understanding with this treatment plan and admission. Differential Diagnosis Differential Diagnoses: The differential diagnosis associated with the presentation includes Shortness of breath Difficulty breathing Influenza Admission/Observation Consideration of admission/observation: Escalation of care including admission/observation considered Patient admitted. Consult Healthcare Provider Management of the patient was discussed with: Hospitalist (spoke to the hospitalist as noted in the MDM Rationale portion of this note.) Lab Data [facility] Lab Attestation statement: I reviewed the patient's lab results. My interpretation of these results are in the MDM Rationale portion of this note. 03/18/24 04:36 03/18/24 05:01 Labs: Lab Results 03/18/24 03/18/24 03/18/24 Range/Units 04:36 05:01 07:12 WBC 7.9 (4.8-10.8) X10*3/uL RBC 4.74 (4.60-5.80) X10*6/uL Hgb 14.7 (14.0-18.0) g/dl Hct 43.3 (42.0-52.0) % MCV 91.4 (80.0-98.0) fL MCH 31.0 (27.0-33.0) pg MCHC 33.9 (31.0-36.0) g/dl RDW 13.2 (11.0-16.0) % Plt Count 181 (160-400) X10*3/uL MPV 10.9 (9.4-12.4) fL Immature Gran % (Auto) 0.4 (0.0-0.4) % Neut % (Auto) 72.6 (45-73) % Lymph % (Auto) 10.5 L (20-40) % [place] % (Auto) 10.5 (2-11) % Eos % (Auto) 5.5 H (0-4) % Baso % (Auto) 0.5 (0-2) % Lymph # (Auto) 0.8 L (1.2-4.9) X10*3/uL [place] # (Auto) 0.8 (0.1-1.2) X10*3/uL Eos # (Auto) 0.4 (0.0-0.4) X10*3/uL Baso # (Auto) 0.0 (0.0-0.2) X10*3/uL Abs Immat Gran (auto) 0.03 (0.00-0.03) X10*3/uL Absolute Neuts (auto) 5.8 (2.0-8.3) x10*3/uL Absolute Nucleated RBC 0.000 (0.0-0.012) X10*3/uL Nucleated RBC % (auto) 0.0 (0.0-0.2) /100WBC PT 11.2 (11.1-13.3) SEC INR 0.9 (0.9-1.1) APTT 29.8 (26.0-36.8) SEC Hold Blue Top SEE NOTE VBG pH 7.44 H (7.32-7.43) VBG pCO2 30 mmHg VBG pO2 61 mmHg VBG HCO3 21 L (22-26) mmol/L VBG O2 Saturation 90.0 % VBG Base Excess -1.8 mmol/L Sodium 144 (135-145) mmol/L Potassium 4.6 (3.3-5.1) mmol/L Chloride 107 (96-108) mmol/L Carbon Dioxide 24 (22-29) mmol/L Anion Gap 18 (12-20) BUN 11 (9-16) mg/dL Creatinine 1.03 (0.5-1.4) mg/dL Estim Creat Clear Calc TNP Estimated GFR > 60 Random Glucose 101 (60-115) mg/dL Lactic Acid 1.5 (0.5-2.0) mmol/L Calcium 10.5 H (8.4-10.2) mg/dL Total Bilirubin 0.3 (0.0-1.0) mg/dL AST 34 (5-37) U/L ALT 41 H (0-40) U/L Alkaline Phosphatase 62 (39-117) U/L Troponin I High Sens 7.8 (<3.5-35.0) ng/L B-Natriuretic Peptide 23 (<100) pg/mL Total Protein 8.0 (6.5-8.0) g/dL Albumin 4.7 (3.5-5.0) g/dL Influenza Type A (PCR) POSITIVE A (Negative) Influenza Type B (PCR) NEGATIVE (Negative) RSV RNA Qual (PCR) NEGATIVE (Negative) SARS-CoV-2 RNA (RT-PCR) NEGATIVE (Negative) Independent Interpretation I performed an independent interpretation of an: EKG, Plain X-Ray and CT Scan Interpretation: My interpretation is in agreement with the radiologist's impression of these imaging studies. - EXAMINATION: CT ANGIOGRAM OF THE CHEST WITH AND WITHOUT CONTRAST (CT PULMONARY ANGIOGRAM FOR PE) CLINICAL INFORMATION: Reason for Exam tachycardic, SOB COMPARISON: CT chest 04/02/2023 TECHNIQUE: Prior to contrast administration, noncontrast localization images were obtained. Subsequently, multidetector volumetric imaging was performed from the thoracic inlet to below the diaphragms following the administration of 60 mL Omnipaque 350 intravenous contrast. No contrast reaction reported Sagittal, coronal, and MIP oblique sagittal reformatted images were obtained on the CT workstation, uploaded to PACS, and reviewed. This CT examination was performed using dose optimization techniques as appropriate, variously including the following: *Automated exposure control *Adjustment of mA and/or kV according to patient size (this includes techniques or standardized protocols for targeted exams where dose is matched to indication/reason for exam; i.e. extremities or head) *Use of iterative reconstruction technique Total exam dose-length product 223 mGy-cm FINDINGS: QUALITY OF STUDY/CONTRAST BOLUS: Satisfactory. PULMONARY ARTERIES: No pulmonary emboli. THORACIC AORTA: No aneurysm. LUNG: There are two 3 mm nodules seen in the left lower lobe (7:139 and 229) which are unchanged when compared to the prior study with no new, increasing sized or concerning pulmonary nodule is seen. No focal consolidation PLEURA: No pleural effusion or pneumothorax. MEDIASTINUM: Normal heart size. No pericardial effusion. No hilar or mediastinal lymphadenopathy. No evidence of septal bowing or right heart strain. CORONARY ARTERY CALCIFICATION: Moderate CHEST WALL/AXILLA: No axillary or internal mammary lymphadenopathy. OSSEOUS STRUCTURES: No acute or suspicious osseous abnormality. Old healed left rib fractures are seen. UPPER ABDOMEN: There is hepatic steatosis again seen. No reflux of contrast into the hepatic veins to suggest elevated right heart pressures. CT/CT angio chest PE protocol IMPRESSION: 1. No evidence of pulmonary emboli. 2. No acute intrathoracic disease to account for the patient's tachypnea and shortness of breath. 3. Incidental note made of stable 3 mm left lower lobe pulmonary nodules, hepatic steatosis and moderate coronary artery calcifications. VTE: negative. Dictated By: Gucci Marroquin MD Signed By: Electronically signed by Gucci Marroquin MD 03/18/24 1134 - Vent. Rate: 105 BPM Atrial Rate: 105 BPM P-R Int: 112 ms QRS Dur: 098 ms QT Int: 330 ms P-R-T Axes: 043 -30 027 degrees QTc Int: 436 ms Sinus tachycardia Left axis deviation Incomplete right bundle branch block Abnormal ECG When compared with ECG of 24-JAN-2021 16:39, Premature atrial complexes are no longer Present DD/ [id number] Radiology Impression Discussion of test interpretation with radiology: I have reviewed the radiologist's reading. Discharge Plan Discharge Clinical Impression: COPD (chronic obstructive pulmonary disease), Diffuse wheezing, Influenza Patient Disposition: Admitted As Inpatient Print Language: Serbian
[2024-03-18 06:32] LABS: MANUAL DIFF FLAG NO
[2024-03-18 06:34] LABS: Basophils Percent Auto 0.5 % (0-2); Eosinophils Absolute Auto 0.4 X10*3/uL (0.0-0.4); Eosinophils Percent Auto 5.5 % (0-4); Hematocrit 43.3 % (42.0-52.0); Hemoglobin 14.7 g/dl (14.0-18.0); Imm Gran Abs Auto 0.03 X10*3/uL (0.00-0.03); Imm Gran Pct Auto 0.4 % (0.0-0.4); Lymphocytes Absolute Auto 0.8 X10*3/uL (1.2-4.9); Lymphocytes Percent Auto 10.5 % (20-40); Mean Corpuscular HGB Conc 33.9 g/dl (31.0-36.0); Mean Corpuscular Volume 91.4 fL (80.0-98.0); Mean Platelet Volume 10.9 fL (9.4-12.4); Monocytes Absolute Auto 0.8 X10*3/uL (0.1-1.2); Monocytes Percent Auto 10.5 % (2-11); Neutrophils Absolute Auto 5.8 x10*3/uL (2.0-8.3); Neutrophils Percent Auto 72.6 % (45-73); Platelet Count 181 X10*3/uL (160-400); Red Blood Count 4.74 X10*6/uL (4.60-5.80); Red Cell Distribution Width 13.2 % (11.0-16.0); White Blood Count 7.9 X10*3/uL (4.8-10.8)
[2024-03-18 06:37] LABS: Alanine Aminotransferase 41 U/L (0-40); Albumin Level 4.7 g/dL (3.5-5.0); Alkaline Phosphatase 62 U/L (39-117); Anion Gap 18 (12-20); Aspartate Amino Transferase 34 U/L (5-37); Bilirubin Total 0.3 mg/dL (0.0-1.0); Blood Urea Nitrogen 11 mg/dL (9-16); Calcium 10.5 mg/dL (8.4-10.2); Carbon Dioxide 24 mmol/L (22-29); Chloride 107 mmol/L (96-108); Estimated Glomerular Filt Rate > 60; Glucose Random 101 mg/dL (60-115); Potassium 4.6 mmol/L (3.3-5.1); Sodium 144 mmol/L (135-145)
[2024-03-18 06:38] LABS: Troponin-I High Sensitivity 7.8 ng/L (<3.5-35.0)
[2024-03-18 06:39] LABS: B Type Natriuretic Peptide 23 pg/mL (<100); Lactic Acid 1.5 mmol/L (0.5-2.0)
[2024-03-18 06:56] LABS: Venous Blood Gas Refer to POC result
[2024-03-18 06:58] LABS: VBG pCO2 30 mmHg; VBG pH 7.44 (7.32-7.43)
[2024-03-18 06:59] LABS: VBG Base Excess -1.8 mmol/L; VBG HCO3 21 mmol/L (22-26); VBG pO2 61 mmHg
[2024-03-18] MEDS: levalbuterol HCL 2.5 MG, Ipratropium Bromide 0.5 MG INHALE (07:25)
--- NOTE | 2024-03-18 07:48 | ECG_ITS ---
Test Reason : COPD EXACCERBATION Blood Pressure : / mmHG Vent. Rate : 105 BPM Atrial Rate : 105 BPM P-R Int : 112 ms QRS Dur : 098 ms QT Int : 330 ms P-R-T Axes : 043 -30 027 degrees QTc Int : 436 ms Sinus tachycardia Left axis deviation Incomplete right bundle branch block Abnormal ECG When compared with ECG of 24-JAN-2021 16:39, Premature atrial complexes are no longer Present Referred By: Aissatou García Electronically Signed By:PHYLICIA RUTHERFORD MD
--- NOTE | 2024-03-18 07:50 | ECG_ITS ---
Test Reason : cp Blood Pressure : / mmHG Vent. Rate : 070 BPM Atrial Rate : 070 BPM P-R Int : 124 ms QRS Dur : 116 ms QT Int : 382 ms P-R-T Axes : 050 -19 025 degrees QTc Int : 412 ms Sinus rhythm with Premature atrial complexes Incomplete right bundle branch block Minimal voltage criteria for LVH, may be normal variant ( R in aVL ) Borderline ECG When compared with ECG of 18-MAR-2024 07:50, Premature atrial complexes are now Present Vent. rate has decreased BY 51 BPM Referred By: Gucci Flores Electronically Signed By:PHYLICIA RUTHERFORD MD
[2024-03-18 07:59] LABS: Influenza A PCR POSITIVE (Negative); Influenza B PCR NEGATIVE (Negative); Resp Syncy Virus RNA Qual PCR NEGATIVE (Negative); SARS COV2 PCR INHOUSE NEGATIVE (Negative)
[2024-03-18 08:11] LABS: INTERNATIONAL NORM RATIO 0.9 (0.9-1.1); Prothrombin Time 11.2 SEC (11.1-13.3)
[2024-03-18 08:14] LABS: Partial Thromboplastin Time 29.8 SEC (26.0-36.8)
[2024-03-18] MEDS: cefTRIAXone sodium 1 GM in 0.9 % Sodium Chloride 50 ML IV (08:40)
[2024-03-18] MEDS: methylPREDNISolone Sod Succ 125 MG/2 ML VIAL 60 MG IVPUSH (08:41)
[2024-03-18] MEDS: levalbuterol HCL 1.25 MG, Ipratropium Bromide 0.5 MG INHALE (08:48)
[2024-03-18] MEDS: iohexoL 350 MG/ML 100 ML INFUS..BTL IV (09:56)
[2024-03-18] MEDS: Magnesium Sulfate/H2O 2 GM/50 ML PIGGYBACK IV (12:21)
--- NOTE | 2024-03-18 12:22 | PM.IMHP ---
History of Present Illness Date of Service: 03/18/24 Chief Complaint: Shortness of breath This is a 59-year-old male with a history of hypertension, COPD, CAD, HLD, and GERD who presents to the ED with shortness of breath and cough that started yesterday. He was fine until he did some cleanup in his garage, possibly inhaling dust, which triggered cough and shortness of breath, somewhat relieved by home inhalers. He presented in respiratory distress, with wheezing and tachycardia but no hypoxia. A chest X-ray showed no acute findings, and a CTA of the chest ruled out pulmonary embolism. WBC was normal, and there was no fever. Influenza test was positive. ED treatment included IV magnesium, IV Solu-Medrol, Xopenex (held due to tachycardia), and Ceftriaxone?there is no evidence of pneumonia. He is feeling much better, no no longer tachycardic, no wheezing and O2 sat 95 % on room air. Review of Systems Review of Systems: Gen: no fever Resp: + sob, no cough CV: no chest, no SHERIDAN, no leg edema GI: No n/v, no abd pain Neuro: No confusion Yes all other systems are reviewed and are negative [facility] Medical History Elevated parathyroid hormone Skin tags, multiple acquired Tubular adenoma of colon Fatigue Trimalleolar fracture of left ankle Primary insomnia GERD (gastroesophageal reflux disease) Cervical radiculopathy due to degenerative joint disease of spine Obstructive sleep apnea Dyslipidemia Compression fracture of lumbar spine, non-traumatic COPD (chronic obstructive pulmonary disease) Pulmonary nodule seen on imaging study Coronary artery disease Type 2 diabetes mellitus without complication, without long-term current use of insulin Essential hypertension Family History Father ETOH abuse Mother CVD (cardiovascular disease) Hx of CABG Brother No problems noted. Brother No problems noted. Sister No problems noted. Sister No problems noted. Sister No problems noted. Sister No problems noted. Sister No problems noted. Son No problems noted. Son No problems noted. Son No problems noted. Son No problems noted. Son No problems noted. Surgical History Hx of colonoscopy Status post open reduction and internal fixation (ORIF) of fracture History of surgery Social History Household Members: Spouse Housing: Apartment Do you presently have visiting nurse or other home services: No Alcohol intake: current Alcohol intake frequency: a few times a month Alcohol type: beer Patient Tobacco Use Status: Former Tobacco user Years Smoked: 25 yrs Smoked in Last 30 Days: No e-Cigarette/Vaping Use: Never Used Second Hand Smoke Exposure: No Use of substances other than those prescribed or required for medical reasons: No Advance Directives: No Advance Directives Information Provided: No Do you have a plan to hurt others: No Plan service: No Current occupational status: disabled 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 Cognitive needs: No Hearing needs: No Vision needs: No Meds Allergies Allergy/AdvReac Type Severity Reaction Status Date / Time No Known Allergies Allergy Verified 01/21/24 12:05 Active Medications: Current Medications Magnesium Sulfate (Magnesium Sulfate/H2o) 2 gm in 50 mls @ 25 mls/hr IV ONCE ONE Stop: 03/18/24 14:03 Home Medications ?Medication ?Instructions ?Recorded ?Confirmed ?Last Taken ?Type blood sugar diagnostic #10 ea 08/02/20 12/03/21 Unknown History nebulizers 04/21/23 Unknown History rosuvastatin 5 mg tablet 5 mg PO BEDTIME 03/18/24 03/18/24 03/17/24 History Physical Exam Vital Signs and Narrative: Vital Signs: Last Vital Signs Temp 99.7 F 03/18/24 11:39 Pulse 104 H 03/18/24 11:39 Resp 25 H 03/18/24 11:39 BP 147/76 H 03/18/24 11:39 Pulse Ox 94 03/18/24 11:39 O2 Del Method Room Air 03/18/24 11:39 Constitutional: Alert, in no distress, overweight. Mental Status: Oriented to person, place and time. Eyes: Pupils are equal, round and reactive to light. Ear, Nose and Throat: Oropharynx clear, mucous membranes moist. Ears and nose without eformities. Trachea midline. Respiratory: Enrique diffuse wheeze Cardiovascular: S1 S2 regular. No murmurs, rubs or gallops. Gastrointestinal: Abdomen soft, non-tender, non-distended. Normal bowel sounds.? Neurologic: Cranial nerves II-XII grossly intact. No focal neurological deficits. Moves all extremities spontaneously.? Skin: No rashes or lesions.? Musculoskeletal: No cyanosis or clubbing. Psychiatric: Normal mood and affect? Results Labs 03/18/24 04:36 03/18/24 05:01 Labs: Laboratory Results - last 24 hr 03/18/24 03/18/24 03/18/24 04:36 05:01 07:12 MCV 91.4 MCH 31.0 MCHC 33.9 RDW 13.2 Plt Count 181 MPV 10.9 Immature Gran % (Auto) 0.4 Neut % (Auto) 72.6 Lymph % (Auto) 10.5 L [place] % (Auto) 10.5 Eos % (Auto) 5.5 H Baso % (Auto) 0.5 Lymph # (Auto) 0.8 L [place] # (Auto) 0.8 Eos # (Auto) 0.4 Baso # (Auto) 0.0 Abs Immat Gran (auto) 0.03 Absolute Neuts (auto) 5.8 Absolute Nucleated RBC 0.000 Nucleated RBC % (auto) 0.0 PT 11.2 INR 0.9 APTT 29.8 Hold Blue Top SEE NOTE VBG pH 7.44 H VBG pCO2 30 VBG pO2 61 VBG HCO3 21 L VBG O2 Saturation 90.0 VBG Base Excess -1.8 Anion Gap 18 Estim Creat Clear Calc TNP Estimated GFR > 60 Random Glucose 101 Lactic Acid 1.5 Calcium 10.5 H Total Bilirubin 0.3 AST 34 ALT 41 H Alkaline Phosphatase 62 Troponin I High Sens 7.8 B-Natriuretic Peptide 23 Total Protein 8.0 Albumin 4.7 Influenza Type A (PCR) POSITIVE A Influenza Type B (PCR) NEGATIVE RSV RNA Qual (PCR) NEGATIVE SARS-CoV-2 RNA (RT-PCR) NEGATIVE Imaging Radiologist's Impressions: Impressions Chest CTA 03/18/24 09:55 IMPRESSION: 1. No evidence of pulmonary emboli. 2. No acute intrathoracic disease to account for the patient's tachypnea and shortness of breath. 3. Incidental note made of stable 3 mm left lower lobe pulmonary nodules, hepatic steatosis and moderate coronary artery calcifications. VTE: negative. Assessment and Plan (1) Influenza: Status: Acute (2) COPD exacerbation: Status: Acute Plan 59/m with CAD, DM, HTN, COPD here with acute exacerbation of COPD without hypoxia Acute respiratory distress d/t Acute exacerbation of COPD from influenza -IV steroid -Xopenex schedule and PRN -no indication for Abx Influenza--Tamiflu, Diabetes-- -hold metformin d/t IV contrast (restart in 48 hrs) -SSI, ADA diet, POC per protocol HLD-statin HTN--resume Lisinopril GERD--Omeprazole DVT prophylaxis: Levneox med rec pending Full code at least 2 midnights hospitalizaton for management of acute severe respiratory distress d/t copd exacerbation d/t influenza and needing IV steroid Quality Stroke Does the patient have a stroke diagnosis?: No VTE Prior VTE?: No VTE Risk Level:: Medical - moderate - high VTE Device Contraindication: Treatment Not Indicated VTE Drug Contraindication: N/A - Med Ordered
--- NOTE | 2024-03-18 12:46 | PHA.MEDREC ---
Pharmacy Consult ? Medication Reconciliation Pharmacy has completed the medication reconciliation. Spoke to patient at bedside and he was able to tell me which medications he takes with little prompting.
[2024-03-18] MEDS: lisinopriL 20 MG TABLET PO (13:31)
[2024-03-18] MEDS: Enoxaparin Sodium 40 MG/0.4 ML SYRINGE SUBCUT (13:40)
[2024-03-18] MEDS: Oseltamivir Phosphate 75 MG CAPSULE PO ×2 (13:40→21:12)
[2024-03-18] MEDS: Tiotropium Bromide 2.5 mcg 1 PUFF/2.5 MCG MIST.INHAL INHALE (15:10)
[2024-03-18] MEDS: Fluticasone/Vilanterol 200/25 BLST.W.DEV 1 PUFF INHALE (15:10)
[2024-03-18] MEDS: levalbuterol HCL 1.25 MG/3 ML VIAL.NEB INHALE ×2 (15:11→19:40)
[2024-03-18 18:21] LABS: Glucose, Whole Blood 200 mg/dL (60-115)
[2024-03-18] MEDS: Insulin Lispro 100 UNIT/ML 3 ML VIAL SUBCUT ×2 (18:27→21:11)
[2024-03-18 20:40] LABS: Glucose, Whole Blood 181 mg/dL (60-115)
[2024-03-18] MEDS: Atorvastatin Calcium 20 MG TABLET PO (21:12)
[2024-03-18] MEDS: methylPREDNISolone Sod Succ 40 MG/ML VIAL IVPUSH (21:12)
[2024-03-18] MEDS: 0.9 % Sodium Chloride Flush 3 ML SYRINGE IVFLUSH (21:12)
[2024-03-19 04:00] VITALS: BP 157/92; PULSE 79; RESP 16; TEMP 36.4; O2SAT 97
[2024-03-19 07:29] LABS: Glucose, Whole Blood 149 mg/dL (60-115)
[2024-03-19] MEDS: Fluticasone/Vilanterol 200/25 BLST.W.DEV 1 PUFF INHALE (07:37)
[2024-03-19 07:38] VITALS: PULSE 79; RESP 16; O2SAT 94
[2024-03-19] MEDS: Tiotropium Bromide 2.5 mcg 1 PUFF/2.5 MCG MIST.INHAL INHALE (07:38)
[2024-03-19] MEDS: levalbuterol HCL 1.25 MG/3 ML VIAL.NEB INHALE (07:38)
[2024-03-19 08:00] VITALS: BP 133/90; PULSE 78; RESP 18; TEMP 36.4; O2SAT 97
[2024-03-19] MEDS: lisinopriL 20 MG TABLET PO (08:15)
[2024-03-19] MEDS: methylPREDNISolone Sod Succ 40 MG/ML VIAL IVPUSH (08:16)
[2024-03-19] MEDS: Oseltamivir Phosphate 75 MG CAPSULE PO (08:16)
[2024-03-19] MEDS: 0.9 % Sodium Chloride Flush 3 ML SYRINGE IVFLUSH (08:18)
--- NOTE | 2024-03-19 09:05 | P.DS_ITS ---
DS: Providers Provider Date of Service: 03/19/24 Date of admission: 03/18/24 16:10 Primary care physician: Chloe Garrison MD DS: Diagnosis Discharge Diagnosis (1) Influenza: Status: Acute (2) COPD exacerbation: Status: Acute DS: Summary Hospital Course Hospital Course: HPI from admission H&P: This is a 59-year-old male with a history of hypertension, COPD, CAD, HLD, and GERD who presents to the ED with shortness of breath and cough that started yesterday. He was fine until he did some cleanup in his garage, possibly inhaling dust, which triggered cough and shortness of breath, somewhat relieved by home inhalers. He presented in respiratory distress, with wheezing and tachycardia but no hypoxia. A chest X-ray showed no acute findings, and a CTA of the chest ruled out pulmonary embolism. WBC was normal, and there was no fever. Influenza test was positive. ED treatment included IV magnesium, IV Solu-Medrol, Xopenex (held due to tachycardia), and Ceftriaxone?there is no evidence of pneumonia. He is feeling much better, no no longer tachycardic, no wheezing and O2 sat 95 % on room air. Hospital Course: Patient was started on iv steroids and tamiflu. He improved rather quickly and is now tolerating room air, ambulating without any dyspnea/tachycardia, has no fevers and feels ready for d/c. Will be sent on 4 more days of steroids/tamiflu. Other baseline conditions remained stable in the hospital Time Attestation Discharge Coordination Time (in mins): 30 Quality: Safe Use of Opioids Does Pt have an Active Cancer Diagnosis on the Problem List?: No Quality: Stroke Does the patient have a stroke diagnosis?: No Physical Exam Vital Signs: Vital Signs: Last Vital Signs Temp 97.5 F 03/19/24 08:00 Pulse 78 03/19/24 08:00 Resp 18 03/19/24 08:00 BP 133/90 H 03/19/24 08:00 Pulse Ox 97 03/19/24 08:00 O2 Del Method Room Air 03/19/24 08:00 BMI result Body Mass Index 30.3 DS: Data Data Completed and Pending Labs on day of discharge: Laboratory Results - last 24 hr 03/18/24 03/18/24 03/19/24 18:17 20:31 07:25 POC Glucose 200 H 181 H 149 H Preliminary micro results at discharge 03/18/24 04:36 Blood Culture - Preliminary Blood - Venous No growth after 24 hours. 03/18/24 04:36 Blood Culture - Preliminary Blood - Venous No growth after 24 hours. Discharge Plan Discharge Anticipated Discharge Date/Time: 03/19/24 08:59 Patient Disposition: Home, Self-Care Discharge Diagnosis: COPD exacerbation due to influenza A Referrals: Chloe Garrison MD [Primary Care Provider] - 1 Week Discharge Medications: New prednisone 20 mg tablet 40 mg PO DAILY Qty: 8 0RF oseltamivir [Tamiflu] 75 mg capsule 75 mg PO BID 4 Days Qty: 8 0RF Continued acetaminophen [Tylenol Arthritis Pain] 650 mg tablet extended release 650 mg PO Q12H PRN (Reason: fever or pain) Qty: 60 0RF budesonide-formoterol [Symbicort] 160-4.5 mcg/actuation HFA aerosol inhaler 2 puff PO BID Qty: 10.2 3RF zolpidem 10 mg tablet 10 mg PO BEDTIME PRN (Reason: sleep) 30 Days Qty: 30 3RF omeprazole 20 mg capsule,delayed release(DR/EC) 20 mg PO DAILY PRN (Reason: heartburn) Qty: 90 1RF (DME) FreeStyle Lite Strips Strip See Rx Instructions .Route Qty: 100 3RF Rx Instructions: check blood sugar once a day AC Incruse Ellipta 62.5 mcg/actuation blister with device 1 inh PO DAILY Qty: 30 2RF metformin 1,000 mg tablet 1,000 mg PO BID Qty: 180 1RF lisinopril 20 mg tablet 20 mg PO DAILY Qty: 90 1RF albuterol sulfate [Ventolin HFA] 90 mcg/actuation HFA aerosol inhaler 2 puff PO Q4H PRN (Reason: for dyspnea) Qty: 18 2RF rosuvastatin 5 mg tablet 5 mg PO BEDTIME (DME) blood sugar diagnostic Strip See Rx Instructions Not Applicable DAILY Qty: 10 Rx Instructions: As directed (DME) nebulizers Misc See Rx Instructions .Route Rx Instructions: As directed albuterol sulfate 2.5 mg /3 mL (0.083 %) solution for nebulization 2.5 mg inhalation Q6H PRN (Reason: for dyspnea) Qty: 180 6RF Discharge Orders: Discharge Order (Routine); Ordered 03/19/24 Ordered By: Cuong Bailey Diet: Advance to usual diet Activity on Discharge: As tolerated Stand Alone Forms: Patient Portal Discharge page Print Language: Bengali Care Plan Goals: To stay healthy and out of the hospital. Health Concerns: COPD Influenza Plan of Treatment: Prednisone 40mg x 4 days Tamiflu 75mg twice daily x 4 days Assessment: see d/c summary
--- NOTE | 2024-03-19 09:56 | MHC.CM.PN ---
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 HOBBS AND REPORTS HE HAS A HCP HIS GABE SANCHEZ #ON FILE AND COPY REQUESTED, CM TO CALL DR HOBBS FOR COPY. PT DISCHARGING HOME SELF CARE TODAY, PT'S FOR TRANSPORT
== END 2024-03-19 10:27 | disposition home or self-care (01) | DRG 194 ==
LOC: HO.ED 12:07 → HO.EDOVER 16:15 → HO.S3 17:03
PROVIDERS: Physician Assistant Medical; Admitting Provider Internal Medicine; Emergency Provider Emergency Medicine; PCP Internal Medicine; Visit Provider Family Medicine
DX: J10.1 Influenza due to other identified influenza virus with other respiratory manifestations (principal); J44.1 Chronic obstructive pulmonary disease with (acute) exacerbation; I10 Essential (primary) hypertension; E78.5 Hyperlipidemia, unspecified; E11.9 Type 2 diabetes mellitus without complications; I25.10 Atherosclerotic heart disease of native coronary artery without angina pectoris; Z79.84 Long term (current) use of oral hypoglycemic drugs; Z79.899 Other long term (current) drug therapy
CPT/HCPCS: 0241U; 36415; 71045; 71275; 80053; 82803; 82947; 83605; 83880; 84484; 85025; 85610; 85730; 87040; 93005; 94640; 99221; 99285; J0696; J1650; J2919; J3475; Q9967

== ENCOUNTER → 2024-03-18 06:12 | Outpatient (BNV) | payer OTHER, SELFPAY | PROVIDERS: Emergency Provider Emergency Medicine; PCP Internal Medicine; Visit Provider Internal Medicine | DX: J11.1 Influenza due to unidentified influenza virus with other respiratory manifestations (principal); J44.1 Chronic obstructive pulmonary disease with (acute) exacerbation | CPT/HCPCS: 99222; 99238 ==

== ENCOUNTER → 2024-03-18 07:48 | Outpatient (BNV) | payer OTHER, SELFPAY | PROVIDERS: Admitting Provider Internal Medicine; Emergency Provider Emergency Medicine; PCP Internal Medicine; Visit Provider Internal Medicine Cardiovascular Disease | DX: R07.9 Chest pain, unspecified (principal) | CPT/HCPCS: 93010 ==

== ENCOUNTER 2024-04-23 14:39 | Outpatient (AMB) | payer OTHER, SELFPAY ==
[2024-04-23 14:49] VITALS: PULSE 85; O2SAT 97; BMI 29.9
--- NOTE | 2024-04-23 14:49 | A.OFFVIS_ITS ---
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 Back in December he started complaining of significant pleuritic discomfort at the chest left chest. Ultimately had a chest x-ray and also a x- ray the ribs which was relatively normal except for some scoliosis. He continues uses inhalers with with good effect. Denies any wheezing or significant coughing at this time. However, he is having still significant left-sided pleuritic discomfort. Sometimes it can be as severe as 7 or 8/10. The episodes are intermittent. At this point the patient is concerned with what with this pain could be. Therefore we will re-evaluate discomfort. Will probably have to repeat the chest x-ray since he had 1 in December but if no answers to have to get a CT scan to further address his chest discomfort. We did review his CT scan of the chest that he had back in 2016 demonstrating healed fracture on the left side but also he also has small pulmonary nodules. These nodules need follow-up. He did have a CT scan of the chest that we personally reviewed here in the office suggesting very small 2-3 mm pulmonary nodules. At this point the patient will need a follow up in a year's time. If the nodules are no different than we can stop following them. His lung parenchyma appeared to be very healthy. He continues to use Ambien for sleep. Denies any retrograde amnesia or any side effects of the medication. He does try to take breaks or medication holidays. 04/23/2024 the patient is here for pulmonary follow-up visit. Overall the patient is doing well. He continues uses inhalers as prescribed. He does need a refill on his nebulized solution. I will send to the pharmacy. The patient had addition to that has been using the Ambien for sleep with good effect. He does get a full night's sleep. He does take breaks from the medication to minimize on the adverse effects. He stop taking the Daliresp at this time. Will hold off on the therapy unless he starts developing worsening symptoms. The patient has been exercising regularly. We did review his last CT scan from March 2023 demonstrating stable pulmonary nodules without any significant changes. Therefore no additional CT scans are need to be ordered at this time. Will have follow-up in a year's time and at that point we will decide if additional imaging studies will be warranted. [facility] Medical History Elevated parathyroid hormone Skin tags, multiple acquired Tubular adenoma of colon Fatigue Trimalleolar fracture of left ankle Primary insomnia GERD (gastroesophageal reflux disease) Cervical radiculopathy due to degenerative joint disease of spine Obstructive sleep apnea Dyslipidemia Compression fracture of lumbar spine, non-traumatic COPD (chronic obstructive pulmonary disease) Pulmonary nodule seen on imaging study Coronary artery disease Type 2 diabetes mellitus without complication, without long-term current use of insulin Essential hypertension Surgical History Hx of colonoscopy Status post open reduction and internal fixation (ORIF) of fracture History of surgery Family History Father ETOH abuse Mother CVD (cardiovascular disease) Hx of CABG Brother No problems noted. Brother No problems noted. Sister No problems noted. Sister No problems noted. Sister No problems noted. Sister No problems noted. Sister No problems noted. Son No problems noted. Son No problems noted. Son No problems noted. Son No problems noted. Son No problems noted. 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 Cognitive needs: No Hearing needs: No Vision needs: No Review of Systems Const Denies body aches, Denies fever(s), Denies headache(s), Denies night sweats and Denies poor appetite ENT Reports Normal hearing present, Denies dizziness, Denies dry mouth, Denies headache(s), Reports nasal congestion, Reports nasal discharge and Denies sore throat Card Denies chest pain, Denies irregular heart rhythm, Denies lightheadedness and Denies dyspnea on exertion (Unchanged) Resp Reports cough and Denies dyspnea on exertion (Unchanged) GI Denies abdominal pain, Denies melena, Denies bloating, Denies hematochezia, Denies change in bowel habits, Denies heartburn and Denies nausea Denies hematuria and Denies difficulty urinating Musc Reports no additional complaints Skin/Breast Denies rash Neuro Reports Normal hearing present, Denies Neuro-related abnormal movements, Denies burning sensations, Denies dizziness, Denies headache(s) and Denies Sensory deficit (Neuro) Psych Reports no additional complaints Endo Denies polyphagia, Denies polydipsia and Denies polyuria Hu/Lymph Denies easy bleeding and Denies lymphadenopathy Aller/Immun Reports no additional complaints Physical Exam Vital Signs: Last Vital Signs Pulse 85 04/23/24 14:49 Pulse Ox 97 04/23/24 14:49 Oxygen Delivery Method Room Air 04/23/24 14:49 BMI result Body Mass Index 29.9 Const General: cooperative and no acute distress Orientation/consciousness: patient oriented x3 Neck Neck: Yes supple Chest Chest palpation & inspection: normal inspection of the chest Resp Effort & Inspection: normal respiratory effort and able to speak in complete sentences Auscultation: no rhonchi, no wheezes and diminished lung sounds Cardio Rate: regular rate Peripheral pulses: Peripheral pulses 2+ throughout GI Palpation (GI): Soft to palpation Skin Lesions: no lesions Rashes: no rashes Neuro General: patient oriented x3 Cranial nerves: Yes Normal hearing present Sensory Exam: No Sensory deficit (Neuro) Extrem Other: Right shoulder: Normal to inspection. No ecchymosis, erythema, or edema. Full shoulder ROM in all planes. Negative cross-body reach. Negative empty can. Negative drop arm. NVI. Psych Mental Status: mental status grossly normal Assessment & Plan Assessment & Plan (1) COPD (chronic obstructive pulmonary disease): Code(s): J44.9 - Chronic obstructive pulmonary disease, unspecified Category: Medical Qualifiers: COPD type: chronic bronchitis Chronic bronchitis type: simple Qualified Code(s): J41.0 - Simple chronic bronchitis (2) Pulmonary nodules: Code(s): R91.8 - Other nonspecific abnormal finding of lung field Category: Medical (3) Insomnia: Code(s): G47.00 - Insomnia, unspecified Category: Medical Qualifiers: Insomnia type: primary Qualified Code(s): F51.01 - Primary insomnia (4) GERD (gastroesophageal reflux disease): Code(s): K21.9 - Gastro-esophageal reflux disease without esophagitis Category: Medical Qualifiers: Esophagitis presence: without esophagitis Qualified Code(s): K21.9 - Gastro-esophageal reflux disease without esophagitis Plan Continue current respiratory therapy: symbicort and Incruse LEI as needed stop Daliresp Ambien as needed No need for serial CT chest. We will reassess further imaging next year F/U 12 months or sooner if new issues arise Coding Level of Care Code Est Pt Level 4 (00784) Diagnoses Simple chronic bronchitis J41.0 COPD type: chronic bronchitis Chronic bronchitis type: simple Pulmonary nodules R91.8 Primary insomnia F51.01 Insomnia type: primary Gastroesophageal reflux disease without esophagitis K21.9 Esophagitis presence: without esophagitis Time Spent (min) 16
== END 2024-04-23 15:03 | disposition home or self-care (01) ==
PROVIDERS: PCP Internal Medicine; Visit Provider Hospitalist
DX: J41.0 Simple chronic bronchitis (principal); R91.8 Other nonspecific abnormal finding of lung field; F51.01 Primary insomnia; K21.9 Gastro-esophageal reflux disease without esophagitis
CPT/HCPCS: 99214

== ENCOUNTER → 2024-04-23 14:39 | Outpatient (BNVA) | payer OTHER, SELFPAY | PROVIDERS: PCP Internal Medicine; Visit Provider Hospitalist | DX: J41.0 Simple chronic bronchitis (principal); K21.9 Gastro-esophageal reflux disease without esophagitis; R91.8 Other nonspecific abnormal finding of lung field; F51.01 Primary insomnia | CPT/HCPCS: 99212 ==

== ENCOUNTER 2024-04-28 10:40 | Outpatient (AMB) | payer OTHER, SELFPAY ==
--- NOTE | 2024-04-28 10:42 | A.OFFVIS_ITS ---
Vital Signs 04/28/24 10:44 Height 5 ft 6 in Weight 186 lb 1.122 oz BMI 30.0 BP 138/96 H Blood Pressure Location Rt brachial Position Sitting Pulse 88 Pulse Source Pulse Oximeter Pulse Oximetry (%) 94 Oxygen Delivery Method Room Air Intake Visit Reasons: 3 mnth f/u Intake Note: Trey presents in office today for a scheduled 3 mos FUV. CC; Pt is here for a progress FUV. No orders placed at their last visit. Pt states that he is here to discuss a colo s/p. Pt reports that this would be a recall s/p after their previous s/p did not result adequately due to poor prep r esults. Allergies No Known Allergies Allergy (Verified 04/28/24 10:43) HPI HPI 3 mnth f/u: Details: LAST VISIT Tubular adenoma of colon GERD (gastroesophageal reflux disease) Status post colonoscopy Plan Tubular adenoma found on colonoscopy with doubt high-grade dysplasia or carcinoma. Suboptimal prep and patient will need to return for colorectal screening in 6-12 months. Patient will return to the office in 3 months making sure that he is moving his bowels well. Patient was encouraged to increase fluid intake and activity to promote better bowel motility. Continue taking omeprazole for acid reflux. Patient only takes it on as needed basis. He is agreeable to this plan and verbalizes understanding of instructions. He was given the opportunity to ask questions and all questions answered. TODAY'S VISIT Patient is here today for follow-up. Patient reports that he has been doing well since last visit. Had colonoscopy in December with suboptimal prep, recommendation was made for patient to return for colonoscopy in 6-12 months. Patient reports that he moves his bowels well daily. Patient did not follow the clear liquid instructions. No issues with anesthesia. No history of sleep apnea. Not on any anticoagulation medication. Patient denies any cardiac or respiratory symptoms. [facility] Medical History COPD exacerbation Influenza Elevated parathyroid hormone Skin tags, multiple acquired Tubular adenoma of colon Fatigue Trimalleolar fracture of left ankle Primary insomnia GERD (gastroesophageal reflux disease) Cervical radiculopathy due to degenerative joint disease of spine Obstructive sleep apnea Dyslipidemia Compression fracture of lumbar spine, non-traumatic COPD (chronic obstructive pulmonary disease) Pulmonary nodule seen on imaging study Coronary artery disease Type 2 diabetes mellitus without complication, without long-term current use of insulin Essential hypertension Surgical History Hx of colonoscopy Status post open reduction and internal fixation (ORIF) of fracture History of surgery Family History Father ETOH abuse Mother CVD (cardiovascular disease) Hx of CABG Brother No problems noted. Brother No problems noted. Sister No problems noted. Sister No problems noted. Sister No problems noted. Sister No problems noted. Sister No problems noted. Son No problems noted. Son No problems noted. Son No problems noted. Son No problems noted. Son No problems noted. 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 Cognitive needs: No Hearing needs: No Vision needs: No Review of Systems Const Denies weight gain and Denies weight loss ENT Reports no additional complaints, Denies dysphagia and Denies odynophagia Card Reports no additional complaints Resp Reports no additional complaints GI Denies abdominal pain, Denies belching, Denies melena, Denies bloating, Denies change in bowel habits, Denies dysphagia, Denies excessive flatus, Denies dyspepsia, Denies heartburn, Denies diarrhea, Denies loose stools, Denies nausea, Denies odynophagia and Denies vomiting Reports no additional complaints Musc Reports no additional complaints Neuro Reports no additional complaints Psych Reports no additional complaints Endo Reports no additional complaints Physical Exam Vital Signs: Last Vital Signs Pulse 88 04/28/24 10:44 BP 138/96 H 04/28/24 10:44 Pulse Ox 94 04/28/24 10:44 Oxygen Delivery Method Room Air 04/28/24 10:44 BMI result Body Mass Index 30.0 Const General: healthy appearing and no acute distress Nutritional Appearance: obese Orientation/consciousness: patient oriented x3 Resp Effort & Inspection: normal respiratory effort, able to speak in complete sentences, no tracheal deviation and symmetric chest movement Auscultation: clear to auscultation bilaterally Cardio Rate: regular rate GI Inspection: Yes normal to inspection, No distended and Yes obesity Palpation (GI): Soft to palpation, not firm, nontender and No hepatosplenomegaly present Auscultation: normal bowel sounds General: Yes no CVA tenderness Back/Spine/Pelvis Back: no CVA tenderness Skin General skin exam: elasticity normal, turgor normal and dry skin Neuro General: patient oriented x3 Psych Appearance: grossly normal Mental Status: mental status grossly normal Assessment & Plan Assessment & Plan (1) Tubular adenoma of colon: Code(s): D12.6 - Benign neoplasm of colon, unspecified Category: Medical (2) Screen for colon cancer: Code(s): Z12.11 - Encounter for screening for malignant neoplasm of colon Plan Message sent to surgical schedulers to book procedure. Patient denies any issues with anesthesia in the past. No history of sleep apnea. Denies any cardiac or respiratory symptoms. History of asthma, takes inhalers as prescribed and follows up with Dr. Rankin in pulmonology. What to expect before during and after procedure discussed with patient. Stressed the importance of clear liquid diet and good bowel prep. Patient will start to take Dulcolax week before procedure. I will see patient after the procedure, sooner on as needed basis. Patient is agreeable to this plan and verbalizes understanding of instructions. He was given the opportunity to ask questions and all questions answered. Thank you for allowing me to participate in his care Medications: New bisacodyl (Dulcolax (bisacodyl)) Start taking 2 tablet every night 7 days before the procedure and 1 day before procedure take 4 tablets at noon time followed by MiraLax prep 10 mg (2 x 5 mg) PO BEDTIME 16 tabs 0RF Z12.11 - Encounter for screening for malignant neoplasm of colon polyethylene glycol 3350 (Miralax) As directed by gastroenterology department at [facility] 238 grams PO ONCE 238 grams 0RF Z12.11 - Encounter for screening for malignant neoplasm of colon Coding Level of Care Code Est Pt Level 3 (35437) Diagnoses Tubular adenoma of colon D12.6 Screen for colon cancer Z12.11 Time Spent (min) 25 Comment 15 minutes spent with patient and additional 10 minutes spent reviewing his records
[2024-04-28 10:44] VITALS: BP 138/96; PULSE 88; O2SAT 94
== END 2024-04-28 12:38 | disposition home or self-care (01) ==
PROVIDERS: PCP Internal Medicine; Visit Provider Nurse Practitioner Family
DX: D12.6 Benign neoplasm of colon, unspecified (principal); Z12.11 Encounter for screening for malignant neoplasm of colon
CPT/HCPCS: 99213

== ENCOUNTER → 2024-04-28 10:40 | Outpatient (BNVA) | payer OTHER, SELFPAY | PROVIDERS: PCP Internal Medicine; Visit Provider Nurse Practitioner Family | DX: Z12.11 Encounter for screening for malignant neoplasm of colon (principal); D12.6 Benign neoplasm of colon, unspecified | CPT/HCPCS: 99212 ==

== ENCOUNTER 2024-06-02 06:40 | Outpatient (REF) | payer OTHER, SELFPAY ==
[2024-06-02 07:17] LABS: Estimated Average Glucose 143 mg/dL; Hemoglobin A1c % 6.6 % (<6.0)
[2024-06-02 07:36] LABS: Alanine Aminotransferase 39 U/L (0-40); Anion Gap 12 (12-20); Aspartate Amino Transferase 29 U/L (5-37); Blood Urea Nitrogen 13 mg/dL (9-16); Calcium 10.2 mg/dL (8.4-10.2); Carbon Dioxide 27 mmol/L (22-29); Chloride 106 mmol/L (96-108); Cholesterol 181 mg/dL (<200); Estimated Glomerular Filt Rate > 60; Glucose Fasting 127 mg/dL (60-99); HDL Cholesterol 73 mg/dL (>40); LDL Cholesterol Calculated 92 mg/dL (<100); Potassium 4.1 mmol/L (3.3-5.1); Sodium 141 mmol/L (135-145); Triglycerides 80 mg/dL (<150)
[2024-06-02 07:53] LABS: Vitamin D 25-OH Total 37.8 ng/mL (>30)
[2024-06-02 08:20] LABS: Creatinine Urine 126.64 mg/dL; Microalbum/Creatinine Ratio Ur 138.9 ug/mg cr (<30)
[2024-06-04 15:59] LABS: Calcium, Ionized 5.3 mg/dL (4.7-5.5)
== END 2024-06-02 06:41 | disposition home or self-care (01) ==
LOC: HO.LAB 06:40
PROVIDERS: PCP Internal Medicine; Visit Provider Internal Medicine
DX: E11.9 Type 2 diabetes mellitus without complications (principal); I10 Essential (primary) hypertension; I25.10 Atherosclerotic heart disease of native coronary artery without angina pectoris; E78.5 Hyperlipidemia, unspecified; R79.89 Other specified abnormal findings of blood chemistry
CPT/HCPCS: 36415; 80048; 80061; 82043; 82306; 82330; 82570; 83036; 84450; 84460

== ENCOUNTER 2024-07-28 12:45 | Outpatient (AMB) | payer OTHER, SELFPAY ==
--- NOTE | 2024-07-28 12:51 | A.OFFPC_ITS ---
Vital Signs 07/28/24 12:52 Height 5 ft 6 in Weight 188 lb BMI 30.3 BP 120/78 Blood Pressure Location Lt brachial Position Sitting Pulse 90 Pulse Source Pulse Oximeter Pulse Oximetry (%) 97 Oxygen Delivery Method Room Air Intake Visit Reasons: CPE Intake Note: Pt is here today for PE. Allergies No Known Allergies Allergy (Verified 07/28/24 12:54) Medication List - Last Reconciled 07/28/24 by Lynn Sanchez NP acetaminophen ER (Tylenol Arthritis Pain) 650 mg PO Q12H PRN albuterol sulfate 2.5 mg (3 mL) inhalation Q6H PRN albuterol sulfate 90 mcg/actuation (Ventolin HFA) 2 puffs PO Q4H PRN bisacodyl (Dulcolax (bisacodyl)) 10 mg (2 x 5 mg) PO BEDTIME blood sugar diagnostic As directed blood sugar diagnostic (FreeStyle Lite Strips) check blood sugar once a day AC budesonide-formoterol 160-4.5 mcg/actuation (Symbicort) 2 puffs PO BID lisinopril 20 mg PO DAILY metformin 1,000 mg PO BID nebulizers As directed omeprazole 20 mg PO DAILY PRN oseltamivir (Tamiflu) 75 mg PO BID 4 days polyethylene glycol 3350 (Miralax) 238 grams PO ONCE prednisone 40 mg (2 x 20 mg) PO DAILY rosuvastatin 5 mg PO BEDTIME umeclidinium 62.5 mcg/actuation (Incruse Ellipta) 1 inh PO DAILY zolpidem 10 mg PO BEDTIME PRN 30 days Tobacco use date assessed: 07/28/24 Dental Screening Dental Screen Date: 11/03/23 HPI HPI Comments History of Present Illness Details 59 y/o male patient who presents to the clinic for PE. Patient of Dr. Garrison. Pmhx of GERD, INsomnia, COPD, Dyslipidermia, ROSA, T2DM, HTN and Tubular Adenoma of colon. Pt c/o bruises on his upper extremities - denies taking ASA or NSAIDs and he is not taking any Blood thinners. Colonoscopy: 01/07/2024 (Tubular Adenoma) Repeat Sep 2023. Labs and medications reviewed. Immun: Influenza Vaccine given today. [facility] Medical History COPD exacerbation Influenza Elevated parathyroid hormone Skin tags, multiple acquired Tubular adenoma of colon Fatigue Trimalleolar fracture of left ankle Primary insomnia GERD (gastroesophageal reflux disease) Cervical radiculopathy due to degenerative joint disease of spine Obstructive sleep apnea Dyslipidemia Compression fracture of lumbar spine, non-traumatic COPD (chronic obstructive pulmonary disease) Pulmonary nodule seen on imaging study Coronary artery disease Type 2 diabetes mellitus without complication, without long-term current use of insulin Essential hypertension Surgical History Hx of colonoscopy Status post open reduction and internal fixation (ORIF) of fracture History of surgery Family History Father ETOH abuse Mother CVD (cardiovascular disease) Hx of CABG Brother No problems noted. Brother No problems noted. Sister No problems noted. Sister No problems noted. Sister No problems noted. Sister No problems noted. Sister No problems noted. Son No problems noted. Son No problems noted. Son No problems noted. Son No problems noted. Son No problems noted. 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 1. Little interest or pleasure in doing things: not at all 2. Feeling down, depressed, or hopeless: not at all 3. Trouble falling or staying asleep, or sleeping too much: not at all 4. Feeling tired or having little energy: not at all 5. Poor appetite or overeating: not at all 6. Feeling bad about yourself - or that you are a failure or have let yourself or your family down: not at all 7. Trouble concentrating on things, such as reading the newspaper or watching television: not at all 8. Moving or speaking so slowly that other people could have noticed. Or the opposite - being so fidgety or restless that you have been moving around a lot more than usual: not at all 9. Thoughts that you would be better off or of hurting yourself in some way: not at all Total score: 0 Depression Screening Interpretation: Negative Depression Screening Done: Yes Source: Developed by Drs. Milton Tracy, Loraine Jose, Donnell Causey and colleagues, with an educational paulino from [employer]. Thrive Questionnaire Date Thrive assessed: 07/28/24 I am a: Patient What is your living situation today?: I have a steady place to live Within the past 12 months, did the food you bought not last and you didn't have the money to get more?: Often true Within the past 12 months, did you worry whether your food would run out before you got money to buy more?: Often true Do you have trouble paying for medicines?: No Do you have trouble getting transportation to medical appointments?: No Do you have trouble paying your heating and electricity bill?: No Do you have trouble taking care of your child, family member or friend?: No Do you have trouble with day-to-day activities such as bathing, preparing meals, shopping, managing finances, etc.?: I choose not to answer this question Are you currently unemployed and looking for a job?: I choose not to answer this question Are you interested in more education?: I choose not to answer this question Please select the resources that you would like help with: None Currently or been in a relationship where the following occur: I choose not to answer THRIVE Score: 2 AUDIT C Alcohol Use Questionnaire (AUDIT-C) 1. How often do you have a drink containing alcohol?: 2-3 times a week 2. How many drinks containing alcohol do you have on a typical day when you are drinking?: 3 or 4 3. How often do you have six or more drinks on one occasion?: Never Total Score: 4 SHIRA-7 AMB Questionnaire SHIRA-7 Date SHIRA - 7 assessed: 07/28/24 Feeling nervous, anxious, or on edge: 0 = Not at all Not being able to stop or control worryin = Not at all Worrying too much about different things: 0 = Not at all Trouble relaxin = Not at all Being so restless that it is hard to sit still: 0 = Not at all Becoming easily annoyed or irritable: 0 = Not at all Feeling afraid as if something awful might happen: 0 = Not at all Total SHIRA-7 score (0-4 normal; 5-9 mild; 10-14 moderate; 15-21 severe): 0 Source: Developed by Drs. Milton Tracy, Loraine Jose, Donnell Causey and colleagues, with an educational paulino from [employer]. Review of Systems Const All systems reviewed & are unremarkable except as noted in HPI and below Physical exam (Primary Care) Vital Signs: Last Vital Signs Pulse 90 07/28/24 12:52 BP 120/78 07/28/24 12:52 Pulse Ox 97 07/28/24 12:52 Oxygen Delivery Method Room Air 07/28/24 12:52 BMI result Body Mass Index 30.3 Tobacco/Smoking Status: Tobacco use Status Tobacco use date assessed 07/28/24 07/28/24 12:56 Patient Tobacco Use Status Former Tobacco user 07/28/24 12:56 e-Cigarette/Vaping Use Never Used 07/28/24 12:56 PHQ-9: PHQ-9 Score PHQ-9: Total score 0 07/28/24 12:59 Depression Screening Interpretation: Negative Thrive Assessment: Date of Thrive Assessment Date Thrive assessed 07/28/24 07/28/24 12:56 Currently or been in a relationship where the following occur: I choose not to answer Const General: cooperative and no acute distress Nutritional Appearance: overweight Orientation/consciousness: patient oriented x3 HENMT Head: Yes normocephalic Ears: external ears normal and TM's normal bilaterally General nose exam: Normal external nose present Face and sinus: Yes sinuses nontender Mouth: moist mucous membranes Throat: Yes tonsils normal and Yes uvula midline Eyes Pupils: Equal, round and reactive pupils present and Other pupil findings (Cataract left eye) EOM: EOMs intact bilaterally Direct Ophthalmoscopy: normal light reflex Neck Neck: Yes full ROM Resp Effort & Inspection: normal respiratory effort and able to speak in complete sentences Auscultation: clear to auscultation bilaterally, no crackles, no rales, no rhonchi and no wheezes Percussion: percussion normal Cardio Heart sounds: S1 normal heart sound present and S2 normal heart sound present GI Inspection: Yes Abdominal panniculus present and Yes obesity Palpation (GI): Soft to palpation, not firm, nontender, no guarding, not rigid and No hepatosplenomegaly present Percussion: Yes normal to percussion Auscultation: normal bowel sounds Rectal Exam - Male: Yes deferred General: Yes no CVA tenderness and Yes deferred Back/Spine/Pelvis Back: no CVA tenderness and back tenderness Skin Other: Small bruises B/l hands, wrist and upper arms. General skin exam: dry skin and ecchymosis Rashes: no rashes Neuro General: patient oriented x3, gait normal and moves all extremities Cranial nerves: Yes Equal, round and reactive pupils present Motor exam (neuro): 5/5 motor strength present throughout Extrem General: Yes full ROM and Yes capillary refill normal Psych Speech and movement: Normal speech and movement present Office Procedures Flu Questionnaire Does the patient have a severe egg allergy?: No Does the patient have severe life threatening allergies?: No Does the patient have a fever or illness today?: No Has the patient ever had Guillain-[place] Syndrome?: No Has the patient ever had any past reaction to a flu shot?: No Immunizations Fluarix Triv 2896-9012 (PF) 45 mcg (15 mcg x 3)/0.5 mL IM syringe Performing Provider: Lynn Sanchez NP Performing Location: [facility] Administered by: López Villar CMA on 07/28/24 13:20 Dose Route Admin Location Dispensed Lot Number Expiration Date [facility] Education Department Chair 0.5 mL IM Right Deltoid 0.5 mL [id number] 03/21/25 [id number] 1000memories VIS Given Date VIS Provided VIS Publication Date 07/28/24 Single Vaccine 21 Eligibility Eligibility Date Funding Source Not [facility] Eligible 07/28/24 Private Coding Level of Care Code Est Pt Prev Care 40-64y(14083) Diagnoses Essential hypertension I10 Type 2 diabetes mellitus without complication, without long-term current use of insulin E11.9 Coronary artery disease involving [place] coronary artery of [place] heart without angina pectoris I25.10 Associated angina: without angina Coronary Disease-Associated Artery/Lesion type: [place] artery [place] vs. transplanted heart: [place] heart Pulmonary nodule seen on imaging study R91.1 Simple chronic bronchitis J41.0 COPD type: chronic bronchitis Chronic bronchitis type: simple Dyslipidemia E78.5 Encounter for routine adult health examination without abnormal findings Z00.00 Bleeds easily D69.9 Time Spent (min) 30 Assessment & Plan Assessment & Plan (1) Essential hypertension: Code(s): I10 - Essential (primary) hypertension Category: Medical Plan: Well controlled, continue on current regiment. (2) Type 2 diabetes mellitus without complication, without long-term current use of insulin: Code(s): E11.9 - Type 2 diabetes mellitus without complications Category: Medical Plan: Well controlled, continue on current regiment. (3) Coronary artery disease: Comment: Followed by Dr. Garzon Code(s): I25.10 - Atherosclerotic heart disease of [place] coronary artery without angina pectoris Category: Medical Qualifiers: Associated angina: without angina Coronary Disease-Associated Artery/Lesion type: [place] artery [place] vs. transplanted heart: [place] heart Qualified Code(s): I25.10 - Atherosclerotic heart disease of [place] coronary artery without angina pectoris Plan: Managed by Cardiology (4) Pulmonary nodule seen on imaging study: Comment: followed by pulmonary, Dr. marks Code(s): R91.1 - Solitary pulmonary nodule Category: Medical Plan: Managed by Pulmonology. (5) COPD (chronic obstructive pulmonary disease): Code(s): J44.9 - Chronic obstructive pulmonary disease, unspecified Category: Medical Qualifiers: COPD type: chronic bronchitis Chronic bronchitis type: simple Qualified Code(s): J41.0 - Simple chronic bronchitis Plan: Managed by Pulmonology. (6) Dyslipidemia: Code(s): E78.5 - Hyperlipidemia, unspecified Category: Medical Plan: Well controlled, continue on current regiment. (7) Encounter for routine adult health examination without abnormal findings: Code(s): Z00.00 - Encounter for general adult medical examination without abnormal findings Plan: Bruises upper Arms/hands and wrists. (8) Bleeds easily: Code(s): D69.9 - Hemorrhagic condition, unspecified Plan: Ordered INR Orders: Orders Prothrombin Time INR Today R23.3 - Spontaneous ecchymoses
[2024-07-28 12:52] VITALS: BP 120/78; PULSE 90; O2SAT 97; BMI 30.3
== END 2024-07-28 14:16 | disposition home or self-care (01) ==
LOC: HO.HMCC 12:46
PROVIDERS: PCP Internal Medicine; Visit Provider Nurse Practitioner Family
DX: Z00.00 Encounter for general adult medical examination without abnormal findings (principal); E11.9 Type 2 diabetes mellitus without complications; J41.0 Simple chronic bronchitis; D69.9 Hemorrhagic condition, unspecified; I10 Essential (primary) hypertension; I25.10 Atherosclerotic heart disease of native coronary artery without angina pectoris; R91.1 Solitary pulmonary nodule; E78.5 Hyperlipidemia, unspecified; Z23 Encounter for immunization

== ENCOUNTER → 2024-07-28 12:45 | Outpatient (BNVA) | payer OTHER, SELFPAY | PROVIDERS: PCP Internal Medicine; Visit Provider Nurse Practitioner Family | DX: Z00.00 Encounter for general adult medical examination without abnormal findings (principal); Z23 Encounter for immunization; I10 Essential (primary) hypertension; I25.10 Atherosclerotic heart disease of native coronary artery without angina pectoris; R91.1 Solitary pulmonary nodule; J41.0 Simple chronic bronchitis; E78.5 Hyperlipidemia, unspecified; D69.9 Hemorrhagic condition, unspecified | CPT/HCPCS: 90471; 90656; 96127; 99396 ==

== ENCOUNTER 2024-07-29 07:15 | Outpatient (REF) | payer OTHER, SELFPAY ==
[2024-07-29 07:59] LABS: INTERNATIONAL NORM RATIO 0.9 (0.9-1.1); Prothrombin Time 10.7 SEC (10.9-12.4)
== END 2024-07-29 07:16 | disposition home or self-care (01) ==
LOC: HO.LAB 07:15
PROVIDERS: PCP Internal Medicine; Visit Provider Nurse Practitioner Family
DX: R23.3 Spontaneous ecchymoses (principal)
CPT/HCPCS: 36415; 85610

== ENCOUNTER 2024-09-20 14:28 | Outpatient (REF) | payer OTHER, SELFPAY ==
[2024-09-20 15:30] LABS: Anion Gap 11 (12-20); Blood Urea Nitrogen 15 mg/dL (9-16); Calcium 9.3 mg/dL (8.4-10.2); Carbon Dioxide 26 mmol/L (22-29); Chloride 107 mmol/L (96-108); Estimated Glomerular Filt Rate > 60; Potassium 3.9 mmol/L (3.3-5.1); Sodium 140 mmol/L (135-145)
[2024-09-20 15:36] LABS: Parathyroid Hormone Intact 214.7 pg/mL (8.7-77.1)
[2024-09-21 15:48] LABS: Calcium, Ionized 5.1 mg/dL (4.7-5.5)
== END 2024-09-20 14:29 | disposition home or self-care (01) ==
LOC: HO.LAB 14:28
PROVIDERS: PCP Internal Medicine; Visit Provider Internal Medicine Endocrinology, Diabetes & Metabolism
DX: E83.52 Hypercalcemia (principal)
CPT/HCPCS: 36415; 80051; 82310; 82330; 82565; 83970; 84520

== ENCOUNTER 2024-09-28 07:09 | Day surgery (SDC) | payer OTHER, SELFPAY ==
--- NOTE | 2024-09-27 10:28 | P.CONAN_ITS ---
Documented by User: Leonela Lassiter NP 09/27/24 10:29 HPI - Anesthesia Eval Consult details Narrative: 59yo M for Colonoscopy s/p same 12/2023 with [facility] Active Problems Active Problems: All Active Problems Elevated parathyroid hormone (Acute) Tubular adenoma of colon (Acute) Primary insomnia (Acute) GERD (gastroesophageal reflux disease) (Acute) Cervical radiculopathy due to degenerative joint disease of spine (Acute) Obstructive sleep apnea (Acute) Dyslipidemia (Acute) COPD (chronic obstructive pulmonary disease) (Acute) Pulmonary nodule seen on imaging study (Acute) Coronary artery disease (Acute) Type 2 diabetes mellitus without complication, without long-term current use of insulin (Acute) Essential hypertension (Acute) Past Medical History Medical History (Reviewed 04/28/24 @ 10:43 by Milton Marie [facility]) COPD exacerbation Influenza Elevated parathyroid hormone Skin tags, multiple acquired Tubular adenoma of colon Fatigue Trimalleolar fracture of left ankle Primary insomnia GERD (gastroesophageal reflux disease) Cervical radiculopathy due to degenerative joint disease of spine Obstructive sleep apnea Dyslipidemia Compression fracture of lumbar spine, non-traumatic COPD (chronic obstructive pulmonary disease) Pulmonary nodule seen on imaging study Coronary artery disease Type 2 diabetes mellitus without complication, without long-term current use of insulin Essential hypertension Family History Family History Father ETOH abuse Mother CVD (cardiovascular disease) Hx of CABG Brother No problems noted. Brother No problems noted. Sister No problems noted. Sister No problems noted. Sister No problems noted. Sister No problems noted. Sister No problems noted. Son No problems noted. Son No problems noted. Son No problems noted. Son No problems noted. Son No problems noted. Family history of problems with anesthesia: No Surgical History Surgical History Hx of colonoscopy Status post open reduction and internal fixation (ORIF) of fracture History of surgery History of Problems with Anesthesia: No Social History Social History Household Members: Spouse Housing: House Do you presently have visiting nurse or other home services: No Alcohol intake: current Alcohol intake frequency: a few times a month Alcohol type: beer Patient Tobacco Use Status: Former Tobacco user Years Smoked: 25 yrs e-Cigarette/Vaping Use: Never Used Second Hand Smoke Exposure: No Use of substances other than those prescribed or required for medical reasons: No Have you been hit, kicked, punched, or otherwise hurt by someone within the past year? 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 Cognitive needs: No Hearing needs: No Vision needs: No Meds Allergies Allergy/AdvReac Type Severity Reaction Status Date / Time No Known Allergies Allergy Verified 07/28/24 12:54 Home Medications ?Medication ?Instructions ?Recorded ?Confirmed ?Last Taken ?Type blood sugar diagnostic #10 ea 08/02/20 07/28/24 Unknown History nebulizers 04/21/23 07/28/24 Unknown History rosuvastatin 5 mg tablet 5 mg PO BEDTIME 03/18/24 07/28/24 03/17/24 History Exam Pertinent Lab Results Pertinent Lab Results: Laboratory Tests 03/18/24 09/20/24 04:36 14:46 WBC 7.9 Hgb 14.7 Hct 43.3 Plt Count 181 Sodium 140 Potassium 3.9 Chloride 107 Carbon Dioxide 26 BUN 15 Creatinine 1.01 Narrative Narrative: EKG 02/2024 Vent. Rate : 070 BPM Atrial Rate : 070 BPM P-R Int : 124 ms QRS Dur : 116 ms QT Int : 382 ms P-R-T Axes : 050 -19 025 degrees QTc Int : 412 ms Sinus rhythm with Premature atrial complexes Incomplete right bundle branch block Minimal voltage criteria for LVH, may be normal variant ( R in aVL ) Borderline ECG When compared with ECG of 18-MAR-2024 07:50, Premature atrial complexes are now Present Vent. rate has decreased BY 51 BPM Assessment and Plan Assessment Anesthesia Assessment: Chart Reviewed Final Anesthetic Review Family History of Problems with Anesthesia: No History of Problems with Anesthesia: No Documented by User: Ned Hoyt MD 09/28/24 09:37 [facility] Past Medical History Medical History (Reviewed 04/28/24 @ 10:43 by Milton Marie [facility]) COPD exacerbation Influenza Elevated parathyroid hormone Skin tags, multiple acquired Tubular adenoma of colon Fatigue Trimalleolar fracture of left ankle Primary insomnia GERD (gastroesophageal reflux disease) Cervical radiculopathy due to degenerative joint disease of spine Obstructive sleep apnea Dyslipidemia Compression fracture of lumbar spine, non-traumatic COPD (chronic obstructive pulmonary disease) Pulmonary nodule seen on imaging study Coronary artery disease Type 2 diabetes mellitus without complication, without long-term current use of insulin Essential hypertension Family History Family History Father ETOH abuse Mother CVD (cardiovascular disease) Hx of CABG Brother No problems noted. Brother No problems noted. Sister No problems noted. Sister No problems noted. Sister No problems noted. Sister No problems noted. Sister No problems noted. Son No problems noted. Son No problems noted. Son No problems noted. Son No problems noted. Son No problems noted. Surgical History Surgical History Hx of colonoscopy Status post open reduction and internal fixation (ORIF) of fracture History of surgery Social History Social History Household Members: Spouse Housing: House Do you presently have visiting nurse or other home services: No Alcohol intake: current Alcohol intake frequency: a few times a month Alcohol type: beer Patient Tobacco Use Status: Former Tobacco user Years Smoked: 25 yrs e-Cigarette/Vaping Use: Never Used Second Hand Smoke Exposure: No Use of substances other than those prescribed or required for medical reasons: No Have you been hit, kicked, punched, or otherwise hurt by someone within the past year? 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 Cognitive needs: No Hearing needs: No Vision needs: No Meds Allergies Allergy/AdvReac Type Severity Reaction Status Date / Time No Known Allergies Allergy Verified 07/28/24 12:54 Home Medications ?Medication ?Instructions ?Recorded ?Confirmed ?Last Taken ?Type blood sugar diagnostic #10 ea 08/02/20 07/28/24 Unknown History nebulizers 04/21/23 07/28/24 Unknown History rosuvastatin 5 mg tablet 5 mg PO BEDTIME 03/18/24 07/28/24 03/17/24 History Exam Airway Mallampati Class: III TM Dist: >3cm Neck ROM: Full Assessment and Plan Assessment Anesthesia Assessment: Anesthesia Plan Discussed Final Anesthetic Review NPO: Yes ASA Class: III Final Preanesthetic Review: No Changes in Pt Med Stat, Meds/Allgs Chart Reviewed, Consent Obtained/Reviewed, Anes Risks/Benef Reviewed and DNR Form (If Appl.) Patient Risk: Intermediate Procedure Risk: Low Anesthetic Plan Anesthetic Plan: TIVA Disposition: Standard PACU
[2024-09-28 07:47] VITALS: BMI 29.9
[2024-09-28 07:50] VITALS: BP 167/123; PULSE 74; RESP 16; TEMP 36.7; O2SAT 98
[2024-09-28] MEDS: Lactated Ringers 1,000 ML 100 ML IVCONT (08:05)
[2024-09-28 08:08] LABS: Glucose, Whole Blood 134 mg/dL (60-115)
--- NOTE | 2024-09-28 08:23 | MHC.SHP ---
Pre-Procedural Eval Section A - 24 Hr Update-Section A only Date of Service: 09/28/24 The patient is an INPATIENT: No The patient has been examined within 24 hours of the surgical procedure. The History & Physical has been completed within 30 days and I have reviewed it.: No Section B - Complete if H&P > 30 days Chief Complaint: Surveillance for colon polyps Relevant Family History (Specify if Yes): No Relevant Social History: Tobacco Use (Former smoker) Present Medications: see Short Stay Collaborative assessment Medical History: Significant History (Tubular adenoma of colon Fatigue Trimalleolar fracture of left ankle Primary insomnia GERD (gastroesophageal reflux disease) Cervical radiculopathy due to degenerative joint disease of spine Obstructive sleep apnea Dyslipidemia Compression fracture of lumbar spine, non-traumatic COPD (chronic obstru) History of Previous Operations: Relevant previous surgery/procedure and date(s) (Hx of colonoscopy Status post open reduction and internal fixation (ORIF) of fracture History of surgery) Allergies: Allergies Allergy/AdvReac Type Severity Reaction Status Date / Time No Known Allergies Allergy Verified 07/28/24 12:54 Review of Systems Sugical H&P ROS: Negative: Constitution, Cardiovascular, Respiratory and Gastrointestinal Exam Surgical H&P Exam: Normal: Heart, Normal: Lungs, Normal: Extremities and Normal: Abdomen Plan Diagnosis/Plan: Unchanged I have reviewed the history and physical and performed a pertinent physical examination on my patient. No changes have occurred unless specified. Time Spent With Patient Time: Total time managing care of this patient today ____ minutes.
--- NOTE | 2024-09-28 10:10 | P.OPN-COLO_ITS ---
Colonoscopy Operative Note Operative Note Date of Service: 09/28/24 Narrative: COLONOSCOPY TILL CECUM WITH SNARE POLYPECTOMY AND BIOPSIES Pre-op diagnosis: Surveillance for colon polyps. Post-op diagnosis:? Colon polyps, Diverticulosis, hemorrhoids Endoscopist:? Belkis Nichols MD Anesthesia:?MAC Consent: Indications for the procedure and potential complications of bleeding, perforation, reaction to medications and missed diagnosis were discussed with the patient and informed consent was obtained. Instrument: Olympus PCF H 190 L variable stiffness pediatric colonoscope Monitoring: Vital signs and clinical assessment, intermittent blood pressure monitoring, continuous EKG monitoring, Pulse oximetry and Carbon Dioxide monitoring were done throughout the procedure. Please see anesthesia flowsheet. Colon withdrawl time was 34 minutes. Procedure: The patient was placed in the left lateral decubitis position and pre-procedure medications were administered. After a digital rectal examination of the ano-rectum, the video colonoscope was inserted into the rectum and advanced through the colon to the cecum. The colonoscope was slowly withdrawn in a retrograde panoramic fashion and the colon mucosa was carefully examined including a retroflexed view of the rectum. Findings and interventions are described below. Procedure Difficulty: Colon was long and tortuous and there was spasm and some loop formation Findings: Terminal Ileum: Not evaluated Cecum: Normal Ascending Colon: A 4-5 mm sessile polyp in the proximal AC - removed with a cold biopsy. Two 5 to 8 mm sessile polyps in the distal AC - removed with a cold snare Transverse Colon: Two 5-7 mm sessile polyps - removed with a cold snare Descending Colon: A 5-6 mm sessile polyp - removed with a cold snare Sigmoid Colon: A 10-12 mm sessile polyp - removed with a hot snare. Multiple diminutive appearing polyps in the rectosigmoid Moderate diverticulosis Rectum: Multiple diminutive appearing polyps in the rectosigmoid Ano-rectum: Small internal hemorrhoids Colon preparation: Good after copious irrigation. [place] Bowel Preparation Scale Right colon; 2 Transverse colon: 2 Left colon; 2 (0 = Unprepared colon segment with mucosa not seen due to solid stool that cannot be cleared. 1 = Portion of mucosa of the colon segment seen, but other areas of the colon segment not well seen due to staining, residual stool and/or opaque liquid. 2 = Minor amount of residual staining, small fragments of stool and/or opaque liquid, but mucosa of colon segment seen well. 3 = Entire mucosa of colon segment seen well with no residual staining, small fragments of stool or opaque liquid) Impression and Post Procedure Diagnosis: Colonoscopy Findings: Seven small to medium sized polyps were removed Moderate diverticulosis seen in the sigmoid colon small hemorrhoids on retroflexed exam. Plan: Pt has a FU appointment on 10/12/24 with Chio Arevalo NP Repeat Colonoscopy in 3 years if polyps are adenomatous and 10 year if polyps are hyperplastic. Above findings were reviewed with the patient and relevant handouts were given and the discharge area. BIOPSIES SHOWED: A. Colon, ascending, polypectomies: Fragments of colonic mucosa with mild surface hyperplastic changes. B. Colon, proximal ascending, polypectomy: Inflammatory polyp. C. Colon, transverse, polypectomies: Fragments of tubular adenomata; negative for high-grade dysplasia or carcinoma. D. Colon, descending, polypectomy: Vegetable material only; no colonic tissue identified. E. Colon, sigmoid, polypectomy: Hyperplastic mucosal polyp Letter sent advising repeat colonoscopy in 3 years. Patient was placed on the colonoscopy recall list.
[2024-09-28 10:15] VITALS: BP 111/74; PULSE 82; RESP 15; TEMP 36.8; O2SAT 96
[2024-09-28 10:30] VITALS: BP 135/87; PULSE 73; RESP 16; TEMP 36.7; O2SAT 95
== END 2024-09-28 10:52 | disposition home or self-care (01) ==
PROVIDERS: PCP Internal Medicine; Visit Provider Internal Medicine Gastroenterology
PROC: 0DJD8ZZ Inspection of Lower Intestinal Tract, Via Natural or Artificial Opening Endoscopic (ICD-10-PCS; CPT 45378; principal; 2024-09-28 09:10)
DX: Z12.11 Encounter for screening for malignant neoplasm of colon (principal); Z86.0101 Personal history of adenomatous and serrated colon polyps; D12.3 Benign neoplasm of transverse colon; K63.5 Polyp of colon; K51.40 Inflammatory polyps of colon without complications; K57.30 Diverticulosis of large intestine without perforation or abscess without bleeding; K64.8 Other hemorrhoids; K21.9 Gastro-esophageal reflux disease without esophagitis; F51.01 Primary insomnia; J44.9 Chronic obstructive pulmonary disease, unspecified; I25.10 Atherosclerotic heart disease of native coronary artery without angina pectoris; I10 Essential (primary) hypertension; E78.5 Hyperlipidemia, unspecified; E11.9 Type 2 diabetes mellitus without complications; Z79.899 Other long term (current) drug therapy; Z87.891 Personal history of nicotine dependence; Z98.890 Other specified postprocedural states; Z79.84 Long term (current) use of oral hypoglycemic drugs
CPT/HCPCS: 45385; 45380; 82947; 88302; 88305; J2003; J2704

== ENCOUNTER → 2024-09-28 07:09 | Outpatient (BNV) | payer OTHER, SELFPAY | PROVIDERS: PCP Internal Medicine; Visit Provider Internal Medicine Gastroenterology | DX: Z12.11 Encounter for screening for malignant neoplasm of colon (principal); Z86.0100 Personal history of colon polyps, unspecified; K63.5 Polyp of colon; D12.3 Benign neoplasm of transverse colon; K57.30 Diverticulosis of large intestine without perforation or abscess without bleeding; K64.8 Other hemorrhoids | CPT/HCPCS: 45380; 45385 ==

== ENCOUNTER 2024-10-12 09:02 | Outpatient (AMB) | payer OTHER, SELFPAY ==
[2024-10-12 09:50] VITALS: BP 130/80; PULSE 82; O2SAT 97; BMI 30.8
--- NOTE | 2024-10-12 09:50 | MHC.PC.OV ---
Vital Signs 10/12/24 09:50 Height 5 ft 6 in Weight 191 lb BMI 30.8 BP 130/80 Blood Pressure Location Rt brachial Position Sitting Pulse 82 Pulse Source Pulse Oximeter Pulse Oximetry (%) 97 Oxygen Delivery Method Room Air Intake Visit Reasons: f/u labs Intake Note: Pt is here today for his f/u labs Allergies No Known Allergies Allergy (Verified 10/13/24 00:28) Medication List - Last Reconciled 10/12/24 by Chloe Garrison MD acetaminophen ER (Tylenol Arthritis Pain) 650 mg PO Q12H PRN albuterol sulfate 90 mcg/actuation (Ventolin HFA) 2 puffs PO Q4H PRN albuterol sulfate 2.5 mg (3 mL) inhalation Q6H PRN blood sugar diagnostic As directed blood sugar diagnostic (FreeStyle Lite Strips) check blood sugar once a day AC budesonide-formoterol 160-4.5 mcg/actuation (Symbicort) 2 puffs PO BID lisinopril 20 mg PO DAILY metformin 1,000 mg PO BID nebulizers As directed omeprazole 20 mg PO DAILY PRN rosuvastatin 5 mg PO BEDTIME umeclidinium 62.5 mcg/actuation (Incruse Ellipta) 1 inh PO DAILY zolpidem 10 mg PO BEDTIME PRN 30 days Tobacco use date assessed: 10/12/24 Dental Screening Dental Screen Date: 10/12/24 HPI f/u labs HPI Details - The patient is a 59-year-old male presenting today for follow-up of chronic conditions and health maintenance screening. - He has Diabetes Mellitus controlled with metformin, but current labs unavailable to me for review at present time. He sees Dr Posadas at [facility] endocrine clinic. - Hyperlipidemia management is ongoing, but he has not received current lab results. - Hypertension is currently managed with lisinopril, with BP readings maintained at 120/80 mmHg. - He takes Zolpidem as needed for insomnia. No reports of sleepwalking. - He had a screening colonoscopy done 09/28/[address] Borrego, with 2 tubular adenomas.requiring colonoscopies every three years . Family history notable for mother?s bladder cancer and smoking-related risks. - Complete COVID-19 vaccination and six vaccines received, with last in 2022. - Influenza vaccine administered July 28. - Pneumococcal vaccinations (two received). - Shingles vaccine (two doses). - Tetanus vaccination up to date. [facility] Medical History (Updated 10/12/24 @ 20:38 by Daria Arevalo [facility]) Diverticulosis Hx of adenomatous polyp of colon COPD exacerbation Influenza Elevated parathyroid hormone Skin tags, multiple acquired Tubular adenoma of colon Fatigue Trimalleolar fracture of left ankle Primary insomnia GERD (gastroesophageal reflux disease) Cervical radiculopathy due to degenerative joint disease of spine Obstructive sleep apnea Dyslipidemia Compression fracture of lumbar spine, non-traumatic COPD (chronic obstructive pulmonary disease) Pulmonary nodule seen on imaging study Coronary artery disease Type 2 diabetes mellitus without complication, without long-term current use of insulin Essential hypertension Surgical History Hx of colonoscopy Status post open reduction and internal fixation (ORIF) of fracture History of surgery Family History Father ETOH abuse Mother CVD (cardiovascular disease) Hx of CABG Brother No problems noted. Brother No problems noted. Sister No problems noted. Sister No problems noted. Sister No problems noted. Sister No problems noted. Sister No problems noted. Son No problems noted. Son No problems noted. Son No problems noted. Son No problems noted. Son No problems noted. 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 1. Little interest or pleasure in doing things: not at all 2. Feeling down, depressed, or hopeless: not at all 3. Trouble falling or staying asleep, or sleeping too much: not at all 4. Feeling tired or having little energy: not at all 5. Poor appetite or overeating: not at all 6. Feeling bad about yourself - or that you are a failure or have let yourself or your family down: not at all 7. Trouble concentrating on things, such as reading the newspaper or watching television: not at all 8. Moving or speaking so slowly that other people could have noticed. Or the opposite - being so fidgety or restless that you have been moving around a lot more than usual: not at all 9. Thoughts that you would be better off or of hurting yourself in some way: not at all Total score: 0 Depression Screening Interpretation: Negative Depression Screening Done: Yes 32348 - PHQ-9 Billing: Yes Source: Developed by Drs. Milton Tracy, Loraine Jose, Donnell Causey and colleagues, with an educational paulino from [employer]. Thrive Questionnaire Date Thrive assessed: 10/12/24 I am a: Patient What is your living situation today?: I have a steady place to live Within the past 12 months, did the food you bought not last and you didn't have the money to get more?: Often true Within the past 12 months, did you worry whether your food would run out before you got money to buy more?: Often true Do you have trouble paying for medicines?: No Do you have trouble getting transportation to medical appointments?: No Do you have trouble paying your heating and electricity bill?: No Do you have trouble taking care of your child, family member or friend?: No Do you have trouble with day-to-day activities such as bathing, preparing meals, shopping, managing finances, etc.?: I choose not to answer this question Are you currently unemployed and looking for a job?: I choose not to answer this question Are you interested in more education?: I choose not to answer this question Please select the resources that you would like help with: None Currently or been in a relationship where the following occur: I choose not to answer THRIVE Score: 2 AUDIT C Alcohol Use Questionnaire (AUDIT-C) 1. How often do you have a drink containing alcohol?: Never Total Score: 0 SHIRA-7 AMB Questionnaire SHIRA-7 Date SHIRA - 7 assessed: 10/12/24 Feeling nervous, anxious, or on edge: 1 = Several days Not being able to stop or control worryin = Several days Worrying too much about different things: 0 = Not at all Trouble relaxin = Not at all Being so restless that it is hard to sit still: 0 = Not at all Becoming easily annoyed or irritable: 0 = Not at all Feeling afraid as if something awful might happen: 0 = Not at all Total SHIRA-7 score (0-4 normal; 5-9 mild; 10-14 moderate; 15-21 severe): 2 Source: Developed by Drs. Milton Tracy, Loraine Jose, Donnell Causey and colleagues, with an educational paulino from [employer]. SHIRA-7 Assessment Billing SHIRA-7 Assessment Tool: SHIRA-7 Assessment 37526 Review of Systems Const Denies fatigue, Denies fever(s), Denies headache(s), Denies malaise, Denies night sweats and Denies poor appetite Eyes Details: Goes to [facility] , up-to-date with his diabetic retinopathy screening, in no retinopathy seen, has pterygium left and bilateral pinguecula ENT Reports Normal hearing present, Denies dizziness, Denies dry mouth, Denies headache(s) and Denies sore throat Card Denies chest pain, Denies irregular heart rhythm, Denies lightheadedness and Denies dyspnea Resp Denies cough and Denies dyspnea GI Denies abdominal pain, Denies melena, Denies bloating, Denies hematochezia, Denies change in bowel habits and Denies heartburn Denies hematuria and Denies difficulty urinating Musc Reports as per HPI Skin/Breast Denies rash Neuro Reports Normal hearing present, Denies Neuro-related abnormal movements, Denies burning sensations, Denies dizziness, Denies headache(s) and Denies Sensory deficit (Neuro) Psych Reports no additional complaints Endo Denies fatigue, Denies polyphagia, Denies polydipsia and Denies polyuria Hu/Lymph Denies easy bleeding and Denies lymphadenopathy Aller/Immun Reports no additional complaints Physical exam (Primary Care) Vital Signs: Last Vital Signs Pulse 82 10/12/24 09:50 BP 130/80 10/12/24 09:50 Pulse Ox 97 10/12/24 09:50 Oxygen Delivery Method Room Air 10/12/24 09:50 BMI result Body Mass Index 30.8 Tobacco/Smoking Status: Tobacco use Status Tobacco use date assessed 10/12/24 10/12/24 09:55 Patient Tobacco Use Status Former Tobacco user 10/12/24 09:55 e-Cigarette/Vaping Use Never Used 10/12/24 09:55 PHQ-9: PHQ-9 Score PHQ-9: Total score 0 10/13/24 00:27 Depression Screening Interpretation: Negative Thrive Assessment: Date of Thrive Assessment Date Thrive assessed 10/12/24 10/12/24 10:03 Currently or been in a relationship where the following occur: I choose not to answer Const General: cooperative and no acute distress Nutritional Appearance: overweight Orientation/consciousness: patient oriented x3 HENMT Head: Yes normocephalic Ears: external ears normal and TM's normal bilaterally General nose exam: Normal external nose present Face and sinus: Yes sinuses nontender Mouth: moist mucous membranes Throat: Yes tonsils normal and Yes uvula midline Eyes General: appearance normal, both eyes and all related structures EOM: EOMs intact bilaterally Neck Neck: Yes full ROM Resp Effort & Inspection: normal respiratory effort and able to speak in complete sentences Auscultation: clear to auscultation bilaterally, no crackles, no rales, no rhonchi and no wheezes Percussion: percussion normal Cardio Heart sounds: S1 normal heart sound present and S2 normal heart sound present GI Inspection: Yes Abdominal panniculus present and Yes obesity Palpation (GI): Soft to palpation, not firm, nontender, no guarding, not rigid and No hepatosplenomegaly present Auscultation: normal bowel sounds General: Yes no CVA tenderness and Yes deferred Back/Spine/Pelvis Back: no CVA tenderness and back tenderness Skin General skin exam: dry skin and ecchymosis Rashes: no rashes Neuro General: patient oriented x3, gait normal and moves all extremities Cranial nerves: Yes Normal hearing present Motor exam (neuro): 5/5 motor strength present throughout Sensory Exam: No Sensory deficit (Neuro) Extrem General: Yes full ROM, Yes no joint enlargement, Yes no pedal edema and Yes normal gait Psych Speech and movement: Normal speech and movement present Results Reviewed Results Reviewed: Laboratory Tests 09/20/24 09/28/24 14:46 08:03 POC Glucose 134 H Calcium 9.3 D Ionized Calcium 5.1 Name: Trey Stockton Age/Sex: 59/M : 1965 Unit#: [id number] Attend Dr: DANIEL POSADAS DO Re09/20/24 Status: DEP REF Location: .LAB Disch: SPEC : [id number] NAVEED: 09/20/24 STATUS: COMP REQ : [id number] RECD: 09/20/[address]: DANIEL POSADAS DO COMP: 09/20/241530 ENTERED: 09/20/24-[address]: ORDERED: Lytes, BUN, Creat, CA Test Result Flag Reference Sodium 140 135-145 mmol/L Potassium 3.9 3.3-5.1 mmol/L CL 107 96-108 mmol/L CO2 26 22-29 mmol/L Gap 11 L 12-20 BUN 15 9-16 mg/dL Creat 1.01 0.5-1.4 mg/dL eGFR > 60 Chronic Kidney Disease: Estimated GFR < 60 mL/min/1.73m2 Severe Kidney Disease: Estimated GFR < 15 mL/min/1.73m2 CA 9.3 # 8.4-10.2 mg/dL Coding Level of Care Code Est Pt Level 4 (75526) Complex EM visit Add On G2211 Diagnoses Essential hypertension I10 Type 2 diabetes mellitus without complication, without long-term current use of insulin E11.9 Additional Codes SHIRA-7 Assessment Billing - SHIRA-7 Assessment Tool: SHIRA-7 Assessment 24769 ([id number]) PHQ-9 - 36339 - PHQ-9 Billing: Yes ([id number]) Assessment & Plan Assessment & Plan (1) Essential hypertension: Code(s): I10 - Essential (primary) hypertension Category: Medical (2) Type 2 diabetes mellitus without complication, without long-term current use of insulin: Comment: sees Dr Posadas Code(s): E11.9 - Type 2 diabetes mellitus without complications Category: Medical Plan I will obtain the pending laboratory results to reassess management for diabetes and cholesterol levels. Hypertension appears well controlled with lisinopril, and no adjustments are required. The patient can continue to use Zolpidem as needed for sleep, with precautions to prevent potential side effects. Colon health will be monitored through regular screening due to the history of polyps removal and familial cancer considerations. The patient is well-vaccinated, having received crucial vaccines against influenza, pneumonia, tetanus, shingles, and COVID-19, with an RSV vaccine discussion deferred. - Follow-up with Dr. Garcia for diabetes management and confirm results. - Maintain current hypertension therapy with lisinopril. - Use Ambien as needed for sleep. - Report any changes in health, especially respiratory or gastrointestinal symptoms. - Set appointments for routine colonoscopy screenings as advised. - advised to get RSV vaccine, which she can be administered at the pharmacy - Ensure all future lab results are sent to our office for coordination. - Contact office if any urgent concerns arise before the next annual physical. Patient was informed and verbally consented to the use of an ambient scribe for clinic note documentation during this visit.
== END 2024-10-12 11:21 | disposition home or self-care (01) ==
PROVIDERS: PCP Internal Medicine; Visit Provider Internal Medicine
DX: I10 Essential (primary) hypertension (principal); E11.9 Type 2 diabetes mellitus without complications

== ENCOUNTER → 2024-10-12 09:02 | Outpatient (BNVA) | payer OTHER, SELFPAY | PROVIDERS: PCP Internal Medicine; Visit Provider Internal Medicine | DX: I10 Essential (primary) hypertension (principal); E11.9 Type 2 diabetes mellitus without complications; K21.9 Gastro-esophageal reflux disease without esophagitis; D36.9 Benign neoplasm, unspecified site; K57.90 Diverticulosis of intestine, part unspecified, without perforation or abscess without bleeding; Z98.890 Other specified postprocedural states; Z86.0101 Personal history of adenomatous and serrated colon polyps | CPT/HCPCS: 96127; 99212 ==

== ENCOUNTER 2024-10-12 11:58 | Outpatient (AMB) | payer OTHER, SELFPAY ==
--- NOTE | 2024-10-12 12:09 | A.OFFVIS_ITS ---
Intake Visit Reasons: s/p colon Intake Note: ESTABLISHED PATIENT Reason; s/p colo. Changes/concerns? Discuss implications of results and what that means regarding ongoing sx mgmt. Pharmacy verified? [facility] [employer] Required: No Allergies No Known Allergies Allergy (Verified 10/12/24 12:10) HPI HPI s/p colon: Details: LAST VISIT: Tubular adenoma of colon Screen for colon cancer Plan Message sent to surgical schedulers to book procedure. Patient denies any issues with anesthesia in the past. No history of sleep apnea. Denies any cardiac or respiratory symptoms. History of asthma, takes inhalers as prescribed and follows up with Dr. Rankin in pulmonology. What to expect before during and after procedure discussed with patient. Stressed the importance of clear liquid diet and good bowel prep. Patient will start to take Dulcolax week before procedure. I will see patient after the procedure, sooner on as needed basis. Patient is agreeable to this plan and verbalizes understanding of instructions. He was given the opportunity to ask questions and all questions answered. ? Thank you for allowing me to participate in his care Medications New bisacodyl (Dulcolax (bisacodyl)) Start taking 2 tablet every night 7 days before the procedure and 1 day before procedure take 4 tablets at noon time followed by MiraLax prep 10 mg (2 x 5 mg) PO BEDTIME 16 tabs 0RF Z12.11 polyethylene glycol 3350 (Miralax) As directed by gastroenterology department at [facility] 238 grams PO ONCE 238 grams 0RF Z12.11 COLONOSCOPY: Findings: Terminal Ileum: Not evaluated Cecum: Normal Ascending Colon: A 4-5 mm sessile polyp in the proximal AC - removed with a cold biopsy. Two 5 to 8 mm sessile polyps in the distal AC - removed with a cold snare Transverse Colon: Two 5-7 mm sessile polyps - removed with a cold snare Descending Colon: A 5-6 mm sessile polyp - removed with a cold snare Sigmoid Colon: A 10-12 mm sessile polyp - removed with a hot snare. Multiple diminutive appearing polyps in the rectosigmoid Moderate diverticulosis Rectum: Multiple diminutive appearing polyps in the rectosigmoid Ano-rectum: Small internal hemorrhoids Colon preparation: Good after copious irrigation. [place] Bowel Preparation Scale Right colon; 2 Transverse colon: 2 Left colon; 2 (0 = Unprepared colon segment with mucosa not seen due to solid stool that cannot be cleared. 1 = Portion of mucosa of the colon segment seen, but other areas of the colon segment not well seen due to staining, residual stool and/or opaque liquid. 2 = Minor amount of residual staining, small fragments of stool and/or opaque liquid, but mucosa of colon segment seen well. 3 = Entire mucosa of colon segment seen well with no residual staining, small fragments of stool or opaque liquid) Impression and Post Procedure Diagnosis: Colonoscopy Findings: Seven small to medium sized polyps were removed Moderate diverticulosis seen in the sigmoid colon small hemorrhoids on retroflexed exam. Plan: Pt has a FU appointment on 10/12/24 with Chio Arevalo NP Repeat Colonoscopy in 3 years if polyps are adenomatous and 10 year if polyps are hyperplastic. Above findings were reviewed with the patient and relevant handouts were given and the discharge area. BIOPSIES SHOWED: A. Colon, ascending, polypectomies: Fragments of colonic mucosa with mild surface hyperplastic changes. B. Colon, proximal ascending, polypectomy: Inflammatory polyp. C. Colon, transverse, polypectomies: Fragments of tubular adenomata; negative for high-grade dysplasia or carcinoma. D. Colon, descending, polypectomy: Vegetable material only; no colonic tissue identified. E. Colon, sigmoid, polypectomy: Hyperplastic mucosal polyp TODAY'S VISIT Patient is here today for follow-up and to discuss colonoscopy results. Patient denies any ill effects from the prep, anesthesia or procedure itself. Patient reports to be feeling well. Denies any melena, hematochezia, unintentional weight loss or ribbon like stools. Patient is moving his bowels daily without any issues. One tubular adenoma in transverse colon without high-grade dysplasia or carcinoma. Other polyps were benign, hyperplastic, inflammatory polyp found as well. Patient denies any diarrhea or constipation. Recommendation was made for patient to return in 3 years for screening. Patient denies any family history of CRC [facility] Medical History (Updated 10/12/24 @ 20:38 by Daria Arevalo [facility]) Diverticulosis Hx of adenomatous polyp of colon COPD exacerbation Influenza Elevated parathyroid hormone Skin tags, multiple acquired Tubular adenoma of colon Fatigue Trimalleolar fracture of left ankle Primary insomnia GERD (gastroesophageal reflux disease) Cervical radiculopathy due to degenerative joint disease of spine Obstructive sleep apnea Dyslipidemia Compression fracture of lumbar spine, non-traumatic COPD (chronic obstructive pulmonary disease) Pulmonary nodule seen on imaging study Coronary artery disease Type 2 diabetes mellitus without complication, without long-term current use of insulin Essential hypertension Surgical History Hx of colonoscopy Status post open reduction and internal fixation (ORIF) of fracture History of surgery Family History Father ETOH abuse Mother CVD (cardiovascular disease) Hx of CABG Brother No problems noted. Brother No problems noted. Sister No problems noted. Sister No problems noted. Sister No problems noted. Sister No problems noted. Sister No problems noted. Son No problems noted. Son No problems noted. Son No problems noted. Son No problems noted. Son No problems noted. 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 Cognitive needs: No Hearing needs: No Vision needs: No Review of Systems Const Denies weight gain and Denies weight loss ENT Reports no additional complaints, Denies dysphagia and Denies odynophagia Card Reports no additional complaints Resp Reports no additional complaints GI Denies abdominal pain, Denies belching, Denies melena, Denies bloating, Denies change in bowel habits, Denies dysphagia, Denies excessive flatus, Denies dyspepsia, Denies heartburn, Denies diarrhea, Denies loose stools, Denies nausea, Denies odynophagia and Denies vomiting Reports no additional complaints Musc Reports no additional complaints Neuro Reports no additional complaints Psych Reports no additional complaints Endo Reports no additional complaints Physical Exam Const General: healthy appearing and no acute distress Nutritional Appearance: obese Orientation/consciousness: patient oriented x3 Resp Effort & Inspection: normal respiratory effort, able to speak in complete sentences, no tracheal deviation and symmetric chest movement Auscultation: clear to auscultation bilaterally Cardio Rate: regular rate GI Inspection: Yes normal to inspection, No distended and Yes obesity Palpation (GI): Soft to palpation, not firm, nontender and No hepatosplenomegaly present Auscultation: normal bowel sounds General: Yes no CVA tenderness Back/Spine/Pelvis Back: no CVA tenderness Skin General skin exam: elasticity normal, turgor normal and dry skin Neuro General: patient oriented x3 Psych Appearance: grossly normal Mental Status: mental status grossly normal Assessment & Plan Assessment & Plan (1) Hx of adenomatous polyp of colon: Code(s): Z86.0101 - Personal history of adenomatous and serrated colon polyps Category: Medical (2) GERD (gastroesophageal reflux disease): Code(s): K21.9 - Gastro-esophageal reflux disease without esophagitis Category: Medical Qualifiers: Esophagitis presence: without esophagitis Qualified Code(s): K21.9 - G candida-esophageal reflux disease without esophagitis (3) Status post colonoscopy: Code(s): Z98.890 - Other specified postprocedural states (4) Tubular adenoma: Code(s): D36.9 - Benign neoplasm, unspecified site (5) Diverticulosis: Code(s): K57.90 - Diverticulosis of intestine, part unspecified, without perforation or abscess without bleeding Category: Medical Plan Repeat colonoscopy in 3 years 1 tubular adenoma without high-grade dysplasia or carcinoma found in transverse colon. Rest of polyps hyperplastic. Moderate diverticulosis in the left side of the colon. Patient was encouraged to take fiber with probiotic and increase fiber intake in his diet. Currently he does not have any GI concerning symptoms, follow-up on as needed basis. He will call our office if he will have any GI concerning symptoms. He is agreeable to this plan and verbalizes understanding of instructions. He was given the opportunity to ask questions and all questions answered. Thank you for allowing me to participate in his care Coding Level of Care Code Est Pt Level 3 (95532) Diagnoses Hx of adenomatous polyp of colon Z86.0101 Gastroesophageal reflux disease without esophagitis K21.9 Esophagitis presence: without esophagitis Status post colonoscopy Z98.890 Tubular adenoma D36.9 Diverticulosis K57.90 Time Spent (min) 30 Comment 20 minutes spent with patient and additional 10 minutes spent reviewing his records
--- OUTSIDE RECORDS SUMMARY | 2024-10-12 13:42 | XMS_ITS | Patient Health Record ---
Author Organization [facility] Address [address] [place] [address] Care Team Providers Care Delicatessen Manager Name Role Phone Chloe Garrison MD Primary Care Provider Milton López [phone] REASON FOR REFERRAL No Information MEDICATIONS Medication SIG (Take, Route, Fr equency, Duration) Notes Start Date End Date Status amLODIPine Besylate Active Metoprolol Succinate Active hydroCHLOROthiazide Active traMADol HCl Active Ventolin HFA Active Serevent Diskus Acti ve Fluticasone Propionate Active Spiriva HandiHaler A ctive Crestor Active Breo Ellipta Active metFORMIN HCl Active Lisinopril Active Januvia Active Ranitidine Active Aspirin Active SOCIAL HISTORY Sex Assigned At : Social History Observation Description Sex Assigned At Unknown PROBLEMS Problem Type ICD Code Onset Dates Problem Status W/U Status Risk SNOMED Code Notes Problem Long-term use of aspirin therapy (Z79.82) Active confirmed 815174421 Problem Encounter for screening for malignant neoplasm of colon (Z12.11) Active confirmed 108868682 Problem Encounter for screening for malignant neoplasm of rectum (Z12.12) Active confirmed Screening for malignant neoplasm of rectum (842667746) PLAN OF TREATMENT Pending Test Test Name Order Date GI BIOPSY 03/04/2016 Future Test Test Name Order Date COLONOSCOPY 11/29/2015 Insurance Providers Payer Name Payer Address Payer Phone Subscriber Number Group Number Insured Name Patient Relationship to Insured Coverage Start Date Coverage End Date [facility] [address] [place] [address] [id number] AMARILIS PROCTOR Self - patient is the insured MEDICAL (GENERAL) HISTORY Medical History History ICD Code NIDDM Hyperlipidemia Hypertension 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
== END 2024-10-12 12:37 | disposition home or self-care (01) ==
PROVIDERS: PCP Internal Medicine; Visit Provider Nurse Practitioner Family
DX: Z86.0101 Personal history of adenomatous and serrated colon polyps (principal); K21.9 Gastro-esophageal reflux disease without esophagitis; Z98.890 Other specified postprocedural states; D36.9 Benign neoplasm, unspecified site; K57.90 Diverticulosis of intestine, part unspecified, without perforation or abscess without bleeding
CPT/HCPCS: 99213

== ENCOUNTER 2024-11-30 18:20 | Emergency (ER) | payer OTHER, SELFPAY ==
--- NOTE | ~2024-11-30 | CT_ITS ---
CLINICAL HISTORY: right sided weakness Hx of stroke with weakness ? 1. CTA angiography neck with IV contrast. 3D Postprocessing. 2. CTA angiography head with IV contrast. 3D Postprocessing. Comparison: CT/SR - CT HEAD/BRAIN WO IV CON - 11/30/24 18:58 EDT Findings: Standard three-vessel aortic arch anatomy. Arch branch vessel origins are widely patent. Bilateral cervical vertebral arteries widely patent. Right V4 segment severe stenosis. Moderate narrowing of the left V4 segment. Basilar artery and posterior cerebral arteries are intact. Widely patent bilateral common carotid arteries. Mild atherosclerotic narrowing of the ICA origins bilaterally. Remainder of the extracranial ICAs widely patent. Mild intracranial ICA stenosis bilaterally. Mild luminal narrowing and irregularity of the bilateral M1 and M2 segments. No hemodynamically significant narrowing or occlusion of the anterior or middle cerebral arteries. No intracranial aneurysm or vascular malformation identified. No acute finding in the lung apices. No cervical soft tissue mass or fluid collection identified. No cervical or supraclavicular lymphadenopathy. IMPRESSION: 1. Mild narrowing of the bilateral ICA origins. 2. Mild narrowing of the terminal intracranial ICA segments. 3. Severe right and moderate left V4 segment stenosis. This document has been electronically signed by: Frederick Damon MD on 11/30/2024 20:57:20
--- NOTE | ~2024-11-30 | CT_ITS ---
CLINICAL HISTORY: headache CT head without contrast COMPARISON: None FINDINGS: Small remote bilateral basal ganglia lacunar infarcts. Global cerebral volume loss and chronic microvascular ischemic changes. No acute intracranial hemorrhage, extra-axial fluid collection, mass effect, or midline shift. Ventricular system and basilar cisterns are patent. Witt-white matter differentiation is maintained. No gross orbital abnormality. No suspicious or acute bone lesion. Mastoid air cells and paranasal sinuses are predominantly clear. IMPRESSION: 1. No acute intracranial abnormality. 2. Global cerebral volume loss and chronic microvascular ischemic changes. This document has been electronically signed by: Frederick Damon MD on 11/30/2024 19:26:18
--- NOTE | 2024-11-30 18:38 | ECG_ITS ---
Test Reason : HYPERTENSION Blood Pressure : */* mmHG Vent. Rate : 75 BPM Atrial Rate : 75 BPM P-R Int : 126 ms QRS Dur : 112 ms QT Int : 360 ms P-R-T Axes : 60 -20 35 degrees QTcB Int : 402 ms Sinus rhythm with Premature atrial complexes Incomplete right bundle branch block Minimal voltage criteria for LVH, may be normal variant ( R in aVL ) Borderline ECG When compared with ECG of 19-Mar-2024 09:55, No significant change was found Referred By: Ian Ramirez Electronically Signed By: MERNA MUSE
--- NOTE | 2024-11-30 18:38 | ED.GENADULT ---
HPI - General Adult General Chief complaint: General Medical Stated complaint: HBP Time Seen by Provider: 11/30/24 19:42 Related Data Home Medications ?Medication ?Instructions ?Recorded ?Confirmed blood sugar diagnostic #10 ea 08/02/20 07/28/24 nebulizers 04/21/23 07/28/24 rosuvastatin 5 mg tablet 5 mg PO BEDTIME 03/18/24 07/28/24 Previous Rx's ?Medication ?Instructions ?Recorded acetaminophen 650 mg 650 mg PO Q12H PRN fever or pain 06/13/22 tablet,extended release (Tylenol #60 tabs Arthritis Pain) albuterol sulfate 2.5 mg/3 mL 2.5 mg (3 mL) inhalation Q6H PRN 04/21/23 (0.083 %) solution for nebulization for dyspnea #180 mL omeprazole 20 mg capsule,delayed 20 mg PO DAILY PRN heartburn #90 12/23/23 release caps blood sugar diagnostic (FreeStyle #100 ea 01/02/24 Lite Strips) metformin 1,000 mg tablet 1,000 mg PO BID #180 tabs 07/21/24 umeclidinium 62.5 mcg/actuation 1 inh PO DAILY #30 ea 08/23/24 blister powder for inhalation (Incruse Ellipta) zolpidem 10 mg tablet 10 mg PO BEDTIME PRN sleep 30 days 08/23/24 #30 tabs lisinopril 20 mg tablet 20 mg PO DAILY #90 tabs 08/24/24 albuterol sulfate 90 mcg/actuation 2 puff PO Q4H PRN for dyspnea #18 09/06/24 aerosol inhaler (Ventolin HFA) grams budesonide-formoterol HFA 160 2 puff PO BID #10.2 grams 09/20/24 mcg-4.5 mcg/actuation aerosol inhaler (Symbicort) aspirin 81 mg chewable tablet 81 mg PO DAILY #30 tabs 11/30/24 Allergies Allergy/AdvReac Type Severity Reaction Status Date / Time No Known Allergies Allergy Verified 11/30/24 18:42 [facility] Past Medical History Medical History Diverticulosis Hx of adenomatous polyp of colon COPD exacerbation Influenza Elevated parathyroid hormone Skin tags, multiple acquired Tubular adenoma of colon Fatigue Trimalleolar fracture of left ankle Primary insomnia GERD (gastroesophageal reflux disease) Cervical radiculopathy due to degenerative joint disease of spine Obstructive sleep apnea Dyslipidemia Compression fracture of lumbar spine, non-traumatic COPD (chronic obstructive pulmonary disease) Pulmonary nodule seen on imaging study Coronary artery disease Type 2 diabetes mellitus without complication, without long-term current use of insulin Essential hypertension Surgical History Hx of colonoscopy Status post open reduction and internal fixation (ORIF) of fracture History of surgery Family History Family History Father ETOH abuse Mother CVD (cardiovascular disease) Hx of CABG Brother No problems noted. Brother No problems noted. Sister No problems noted. Sister No problems noted. Sister No problems noted. Sister No problems noted. Sister No problems noted. Son No problems noted. Son No problems noted. Son No problems noted. Son No problems noted. Son No problems noted. 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 His blood pressure was checked yesterday and it was 186/107. In triage he is 210/119. A complains of a right-sided headache. Plan for labs, EKG, CT scan of the brain. Neuro is intact in triage Medications Administered Discontinued Medications Generic Name Dose Route Start Last Admin Trade Name Eloina PRN Reason Stop Dose Admin Diphenhydramine HCl 25 mg 11/30/24 20:04 11/30/24 20:22 Diphenhydramine Hcl 50 Mg/Ml Vial IVPUSH 11/30/24 20:05 25 mg ONCE ONE Administration Iohexol 70 ml 11/30/24 20:29 11/30/24 20:30 Iohexol 350 Mg/Ml 100 Ml Infus..Btl IV 11/30/24 20:30 70 ml ONCE ONE Administration Lisinopril 20 mg 11/30/24 20:04 11/30/24 20:21 Lisinopril 20 Mg Tablet PO 11/30/24 20:05 20 mg ONCE ONE Administration Protocol Metoclopramide HCl 10 mg 11/30/24 20:04 11/30/24 20:22 Metoclopramide Hcl 10 Mg/2 Ml Vial IVPUSH 11/30/24 20:05 10 mg ONCE ONE Administration Medical Decision Making Lab Data 11/30/24 18:50 11/30/24 18:50 Labs: Lab Results 11/30/24 Range/Units 18:50 WBC 8.0 (4.8-10.8) X10*3/uL RBC 4.74 (4.60-5.80) X10*6/uL Hgb 14.4 (14.0-18.0) g/dl Hct 43.1 (42.0-52.0) % MCV 90.9 (80.0-98.0) fL MCH 30.4 (27.0-33.0) pg MCHC 33.4 (31.0-36.0) g/dl RDW 13.1 (11.0-16.0) % Plt Count 205 (160-400) X10*3/uL MPV 10.7 (9.4-12.4) fL Immature Gran % (Auto) 0.4 (0.0-0.4) % Neut % (Auto) 53.0 (45-73) % Lymph % (Auto) 33.0 (20-40) % [place] % (Auto) 8.0 (2-11) % Eos % (Auto) 5.0 H (0-4) % Baso % (Auto) 0.6 (0-2) % Lymph # (Auto) 2.6 (1.2-4.9) X10*3/uL [place] # (Auto) 0.6 (0.1-1.2) X10*3/uL Eos # (Auto) 0.4 (0.0-0.4) X10*3/uL Baso # (Auto) 0.1 (0.0-0.2) X10*3/uL Abs Immat Gran (auto) 0.03 (0.00-0.03) X10*3/uL Absolute Neuts (auto) 4.2 (2.0-8.3) x10*3/uL Absolute Nucleated RBC 0.000 (0.0-0.012) X10*3/uL Nucleated RBC % (auto) 0.0 (0.0-0.2) /100WBC Sodium 138 (135-145) mmol/L Potassium 4.1 (3.3-5.1) mmol/L Chloride 107 (96-108) mmol/L Carbon Dioxide 24 (22-29) mmol/L Anion Gap 11 L (12-20) BUN 14 (9-16) mg/dL Creatinine 1.15 (0.5-1.4) mg/dL Estim Creat Clear Calc 71.7 Estimated GFR > 60 Random Glucose 199 H (60-115) mg/dL Calcium 9.7 (8.4-10.2) mg/dL Magnesium 1.6 (1.6-2.6) mg/dL Total Bilirubin 0.2 (0.0-1.0) mg/dL AST 38 H (5-37) U/L ALT 47 H (0-40) U/L Alkaline Phosphatase 72 (39-117) U/L Troponin I High Sens 9.7 (<3.5-35.0) ng/L Total Protein 7.6 (6.5-8.0) g/dL Albumin 4.2 (3.5-5.0) g/dL Lipase 29 (8-78) U/L Discharge Plan Discharge Clinical Impression: Hypertensive urgency, Headache Patient Disposition: Home, Self-Care Instructions: Acute Headache (DC), Hypertensive Crisis (ED) Additional Instructions: Significant blockage was found in 1 of your blood vessels in your neck. Please follow-up with vascular surgery. The phone number was provided. Please increase the dose of your lisinopril from 20 mg to 40 mg per day Prescriptions: New aspirin 81 mg tablet,chewable 81 mg PO DAILY Qty: 30 0RF No Action acetaminophen [Tylenol Arthritis Pain] 650 mg tablet extended release 650 mg PO Q12H PRN (Reason: fever or pain) Qty: 60 0RF omeprazole 20 mg capsule,delayed release(DR/EC) 20 mg PO DAILY PRN (Reason: heartburn) Qty: 90 1RF (DME) FreeStyle Lite Strips Strip See Rx Instructions .Route Qty: 100 3RF Rx Instructions: check blood sugar once a day AC metformin 1,000 mg tablet 1,000 mg PO BID Qty: 180 1RF Incruse Ellipta 62.5 mcg/actuation blister with device 1 inh PO DAILY Qty: 30 2RF zolpidem 10 mg tablet 10 mg PO BEDTIME PRN (Reason: sleep) 30 Days Qty: 30 3RF lisinopril 20 mg tablet 20 mg PO DAILY Qty: 90 1RF albuterol sulfate [Ventolin HFA] 90 mcg/actuation HFA aerosol inhaler 2 puff PO Q4H PRN (Reason: for dyspnea) Qty: 18 2RF budesonide-formoterol [Symbicort] 160-4.5 mcg/actuation HFA aerosol inhaler 2 puff PO BID Qty: 10.2 3RF rosuvastatin 5 mg tablet 5 mg PO BEDTIME (DME) blood sugar diagnostic Strip See Rx Instructions Not Applicable DAILY Qty: 10 Rx Instructions: As directed (DME) nebulizers [facility] [place] See Rx Instructions .Route Rx Instructions: As directed albuterol sulfate 2.5 mg /3 mL (0.083 %) solution for nebulization 2.5 mg inhalation Q6H PRN (Reason: for dyspnea) Qty: 180 6RF Referrals: Brett Rivera MD [Physician] - 12/02/24 Print Language: Portuguese
[2024-11-30 18:39] VITALS: BP 210/119; PULSE 83; RESP 18; TEMP 36.8; O2SAT 97; BMI 31.2
[2024-11-30 18:54] LABS: MANUAL DIFF FLAG NO
[2024-11-30 18:59] LABS: Basophils Absolute Auto 0.1 X10*3/uL (0.0-0.2); Basophils Percent Auto 0.6 % (0-2); Eosinophils Absolute Auto 0.4 X10*3/uL (0.0-0.4); Hematocrit 43.1 % (42.0-52.0); Hemoglobin 14.4 g/dl (14.0-18.0); Imm Gran Abs Auto 0.03 X10*3/uL (0.00-0.03); Imm Gran Pct Auto 0.4 % (0.0-0.4); Lymphocytes Absolute Auto 2.6 X10*3/uL (1.2-4.9); Mean Corpuscular HGB Conc 33.4 g/dl (31.0-36.0); Mean Corpuscular Hemoglobin 30.4 pg (27.0-33.0); Mean Corpuscular Volume 90.9 fL (80.0-98.0); Mean Platelet Volume 10.7 fL (9.4-12.4); Monocytes Absolute Auto 0.6 X10*3/uL (0.1-1.2); Neutrophils Absolute Auto 4.2 x10*3/uL (2.0-8.3); Platelet Count 205 X10*3/uL (160-400); Red Blood Count 4.74 X10*6/uL (4.60-5.80); Red Cell Distribution Width 13.1 % (11.0-16.0)
[2024-11-30 19:10] LABS: Alanine Aminotransferase 47 U/L (0-40); Albumin Level 4.2 g/dL (3.5-5.0); Alkaline Phosphatase 72 U/L (39-117); Anion Gap 11 (12-20); Aspartate Amino Transferase 38 U/L (5-37); Bilirubin Total 0.2 mg/dL (0.0-1.0); Blood Urea Nitrogen 14 mg/dL (9-16); Calcium 9.7 mg/dL (8.4-10.2); Carbon Dioxide 24 mmol/L (22-29); Chloride 107 mmol/L (96-108); Creatinine Clr Calc Pharmacy 71.7; Estimated Glomerular Filt Rate > 60; Glucose Random 199 mg/dL (60-115); Lipase 29 U/L (8-78); Magnesium 1.6 mg/dL (1.6-2.6); Potassium 4.1 mmol/L (3.3-5.1); Sodium 138 mmol/L (135-145); Total Protein 7.6 g/dL (6.5-8.0)
[2024-11-30 19:17] LABS: Troponin-I High Sensitivity 9.7 ng/L (<3.5-35.0)
[2024-11-30 19:37] VITALS: BP 173/105; PULSE 85; RESP 18; O2SAT 98
--- NOTE | 2024-11-30 19:37 | PC.NURSE ---
pt a&ox4. respirations even and unlabored. pt reporting sudden onset of right sided headache radiating into neck starting yesterday while taking a shower. pt reports some chest discomfort but denies chest pain/sob. pt neuro assessment in tact. pt normal sinus on tele 80-83bpm. 18G placed in left forearm at this time.
--- OUTSIDE RECORDS SUMMARY | 2024-11-30 19:38 | XMS_ITS | Clinical Summary ---
Author Organization [facility] Address [address] [place] [address] Care Team Providers Care Lace Roller Operator Name Role Phone Unavailable Primary Care Provider Unavailabl e Immunizations Name Administration Dates Next Due Pfizer Covid-19 Vaccine 12+ 08/23/2021,,11/08/2020 Pfizer Covid-19 Vaccine 12+ Bivalent 10/08/2022 Social History Tobacco Use Types Packs/Day Years Used Date Smoking Tobacco: Never Assessed Sex and Gender Information Value Date Recorded Sex Assigned at Not on file Legal Sex Male 2:18 PM EST Gender Identity Not on file Sexual Orientation Not on file Plan of Treatment Health Maintenance Due Date Last Done Comments CT Colonography 1965 Colonoscopy 1965 Colorectal Cancer Screening 1965 Depression Screening 1965 FIT DNA/Cologuard 1965 FIT 1965 FOBT 1965 Lipid Panel 1965 Sigmoidoscopy 1965 Alcohol/Substance Use Screening 1977 Tobacco Screening 1977 DTaP/Tdap/Td Vaccines (1 - Tdap) 02/08/1984 Hepatitis B Vaccines (1 of 3 - 19+ 3-dose series) 02/08/1984 Pneumococcal Vaccine: 50+ Years (1 of 1 - PCV) 2015 Zoster Vaccines (1 of 2) 2015 COVID-19 Vaccine (2023- season) 2024 10/08/2022, 08/23/2021, 11/30/2020, Additional history exists Influenza Vaccine (#1) 2024 RSV Patients and Patients Aged 60 years or older (1 - 1-dose 75+ series) 02/08/2040 HIB Vaccines Aged Out No longer eligi ble based on patient's age to complete this topic HPV Vaccines Aged Out No longer eligi ble based on patient's age to complete this topic Hepatitis A Vaccines Aged Out No long er eligible based on patient's age to complete this topic IPV Vaccines Aged Out No longer eligi ble based on patient's age to complete this topic Meningococcal Vaccine Aged Out No olimpia tao eligible based on patient's age to complete this topic Pneumococcal Vaccine: Pediatrics (0 to 5 Years) and At-Risk Patients (6 to 49) Years) Aged Out No longer eligible based on patient's age to complete this topic RSV under 20 months Aged Out No longe r eligible based on patient's age to complete this topic Rotavirus Vaccines Aged Out No longer eligible based on patient's age to complete this topic
--- OUTSIDE RECORDS SUMMARY | 2024-11-30 19:38 | XMS_ITS | Patient Health Record ---
Author Organization [facility] Address [address] [place] [address] Care Team Providers Care Merchant Seaman Name Role Phone Chloe Garrison MD Primary Care Provider Milton López [phone] Reason For Referral No Information Medications Medication SIG (Take, Route, Fr equency, Duration) Notes Start Date End Date Status amLODIPine Besylate Active Metoprolol Succinate Active hydroCHLOROthiazide Active traMADol HCl Active Ventolin HFA Active Serevent Diskus Acti ve Fluticasone Propionate Active Spiriva HandiHaler A ctive Crestor Active Breo Ellipta Active metFORMIN HCl Active Lisinopril Active Januvia Active Ranitidine Active Aspirin Active Problems Problem Type SNOMED Code ICD Code Onset Dates Problem Status W/U Status Risk Notes Problem 810021198 Encounter for screening for malignant neoplasm of colon (Z12.11) Active confirmed Problem Screening for malignant neoplasm of rectum (940412985) Encounter for screening for malignant neoplasm of rectum (Z12.12) Active confirmed Problem 537968314 Long-term use of aspirin therapy (Z79.82) Active confirmed Plan Of Treatment Pending Test Test Name Order Date GI BIOPSY 03/04/2016 Future Test Test Name Order Date COLONOSCOPY 11/29/2015 Insurance Providers Payer Name Payer Address Payer Phone Subscriber Number Group Number Insured Name Patient Relationship to Insured Coverage Start Date Coverage End Date [facility] [address] [place] [address] [id number] AMARILIS PROCTOR Self - patient is the insured Medical (General) History Medical History History ICD Code NIDDM Hyperlipidemia Hypertension 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
--- NOTE | 2024-11-30 20:06 | ED_ITS ---
HPI - General Adult General Chief complaint: General Medical Stated complaint: HBP Time Seen by Provider: 11/30/24 19:42 History of Present Illness HPI narrative: Patient is a 59-year-old male with a history of CVA in the past. Had some residual right-sided weakness to begin with. Presented with having sudden onset of right-sided headache which was splitting. Patient went to bed. This morning noticed question numbness getting worse question numbness about the same persistent pain. Patient had no fever no chills. No chest pain or diaphoresis. He is from home. He is not on blood thinners. Blood pressure was noted to be 210/119 at triage. On recheck was 173/105. Patient baseline is only on lisinopril 20 mg food she claims he is compliant with. He was on up to 4 medication prior. Gradually they been taken out. Patient denies any fever chills. There is no chest pain there is no diaphoresis. He is from home. Related Data Home Medications ?Medication ?Instructions ?Recorded ?Confirmed blood sugar diagnostic #10 ea 08/02/20 07/28/24 nebulizers 04/21/23 07/28/24 rosuvastatin 5 mg tablet 5 mg PO BEDTIME 03/18/24 07/28/24 Previous Rx's ?Medication ?Instructions ?Recorded acetaminophen 650 mg 650 mg PO Q12H PRN fever or pain 06/13/22 tablet,extended release (Tylenol #60 tabs Arthritis Pain) albuterol sulfate 2.5 mg/3 mL 2.5 mg (3 mL) inhalation Q6H PRN 04/21/23 (0.083 %) solution for nebulization for dyspnea #180 mL omeprazole 20 mg capsule,delayed 20 mg PO DAILY PRN heartburn #90 12/23/23 release caps blood sugar diagnostic (FreeStyle #100 ea 01/02/24 Lite Strips) metformin 1,000 mg tablet 1,000 mg PO BID #180 tabs 07/21/24 umeclidinium 62.5 mcg/actuation 1 inh PO DAILY #30 ea 08/23/24 blister powder for inhalation (Incruse Ellipta) zolpidem 10 mg tablet 10 mg PO BEDTIME PRN sleep 30 days 08/23/24 #30 tabs lisinopril 20 mg tablet 20 mg PO DAILY #90 tabs 08/24/24 albuterol sulfate 90 mcg/actuation 2 puff PO Q4H PRN for dyspnea #18 09/06/24 aerosol inhaler (Ventolin HFA) grams budesonide-formoterol HFA 160 2 puff PO BID #10.2 grams 09/20/24 mcg-4.5 mcg/actuation aerosol inhaler (Symbicort) aspirin 81 mg chewable tablet 81 mg PO DAILY #30 tabs 11/30/24 Allergies Allergy/AdvReac Type Severity Reaction Status Date / Time No Known Allergies Allergy Verified 11/30/24 18:42 Review of Systems 2 Review of Systems: Positive headache Yes all other systems are reviewed and are negative PMFSH Past Medical History Attestation statement: The following information was validated with the patient. Medical History Diverticulosis Hx of adenomatous polyp of colon COPD exacerbation Influenza Elevated parathyroid hormone Skin tags, multiple acquired Tubular adenoma of colon Fatigue Trimalleolar fracture of left ankle Primary insomnia GERD (gastroesophageal reflux disease) Cervical radiculopathy due to degenerative joint disease of spine Obstructive sleep apnea Dyslipidemia Compression fracture of lumbar spine, non-traumatic COPD (chronic obstructive pulmonary disease) Pulmonary nodule seen on imaging study Coronary artery disease Type 2 diabetes mellitus without complication, without long-term current use of insulin Essential hypertension Surgical History Hx of colonoscopy Status post open reduction and internal fixation (ORIF) of fracture History of surgery Family History Family History Father ETOH abuse Mother CVD (cardiovascular disease) Hx of CABG Brother No problems noted. Brother No problems noted. Sister No problems noted. Sister No problems noted. Sister No problems noted. Sister No problems noted. Sister No problems noted. Son No problems noted. Son No problems noted. Son No problems noted. Son No problems noted. Son No problems noted. 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 Oriented X3. No acute distress. Eyes: Pupils equal, round and reactive to light. ENT: Pharynx normal. Neck: Normal inspection. Neck supple. No lymph nodes noted. No crepitus CVS: Normal heart rate and rhythm. Pulses normal. Normal S1 and S2 Respiratory: No respiratory distress. Breath sounds normal. No Wheezing. No rales Abdomen: Soft and nontender. No rigidity. No distention. good BS x4 Skin: Skin warm and dry. Normal skin color. Normal skin turgor. Extremities: No lower extremity edema. Neurovascular intact to all extremities. No Lacerations. No Rash Neuro: Oriented X 3. No motor deficit. No sensory deficit. Moving all extermities. No slurred speech NIH Stroke Scale Internal: Initial- Upon Arrival Time: 20:08 Level of Consciousness: Alert Level of Consciousness Questions: Answers both questions correctly Level of Consciousness Commands: Performs both tasks correctly Best Gaze: Normal Visual: No visual loss Facial Palsy: Normal Motor Arm (Right): No drift Motor Arm (Left): No drift Motor Leg (Right): No drift Motor Leg (Left): No drift Limb Ataxia: Absent Sensory: Normal Best Language: No aphasia Dysarthia: Normal Extinction and Inattention: No abnormality Score: 0 Medications Administered Discontinued Medications Generic Name Dose Route Start Last Admin Trade Name Freq PRN Reason Stop Dose Admin Diphenhydramine HCl 25 mg 11/30/24 20:04 11/30/24 20:22 Diphenhydramine Hcl 50 Mg/Ml Vial IVPUSH 11/30/24 20:05 25 mg ONCE ONE Administration Iohexol 70 ml 11/30/24 20:29 11/30/24 20:30 Iohexol 350 Mg/Ml 100 Ml Infus..Btl IV 11/30/24 20:30 70 ml ONCE ONE Administration Lisinopril 20 mg 11/30/24 20:04 11/30/24 20:21 Lisinopril 20 Mg Tablet PO 11/30/24 20:05 20 mg ONCE ONE Administration Protocol Metoclopramide HCl 10 mg 11/30/24 20:04 11/30/24 20:22 Metoclopramide Hcl 10 Mg/2 Ml Vial IVPUSH 11/30/24 20:05 10 mg ONCE ONE Administration Medical Decision Making Medical Decision Making MDM Narrative: Patient 59 years old presented today with having a history of hypertension. History of hyperlipidemia previous history of COPD history of diabetes. Baseline is on lisinopril 20 mg. Patient developed a headache yesterday mainly over the right side. Had baseline weakness to the right hand in the past. Patient feels the right hand weakness is being about the same. On my exam he had good strength. He has fine finger mouth movement that is about equal bilaterally. We performed a CT head which was grossly negative for bleed. But given patient's headache greater than 6 hours. A CTA of the head and neck was done. The result is pending. Patient's blood pressure is significantly elevated. We gave the patient an additional dose of lisinopril 20 mg. I gave patient some Reglan some Benadryl for the nonspecific headache he has no history of migraine in the past. Nevertheless hoping it would make the symptoms a little less severe. Will have patient get reassess after CTA. On my recheck patient's blood pressure is down to 170/100. Currently in stable condition. Awaiting re-evaluation after CTA results CTA results showed no large vessel occlusion. It did see the V4 segment of the right vertebral vessel having a stenosis. This finding was discussed with vascular. Suggest for patient to take aspirin and a statin. Follow-up on an outpatient basis with vascular. Patient's headache subsided. Blood pressure came down to 170/75. Currently in no distress. Wants to go home. After consultation with patient. [place] patient unlikely to have an aneurysm as a CTA was grossly negative. Unlikely to have a bleed. Patient had the numbness to the hand previously and has been an ongoing problem. Objectively there is no finding patient's NIH stroke scale is 0. Patient wants to go home. Will have patient follow-up with vascular on an outpatient basis. In stable condition. Differential Diagnosis Differential Diagnoses: The differential diagnosis associated with the presentation includes Intracranial bleed, aneurysm, stroke, hypertensive urgency versus hypertensive emergency Admission/Observation Consideration of admission/observation: Escalation of care including admission/observation considered Lab Data MDM Lab Attestation statement: I reviewed the patient's lab results. 11/30/24 18:50 11/30/24 18:50 Labs: Lab Results 11/30/24 Range/Units 18:50 WBC 8.0 (4.8-10.8) X10*3/uL RBC 4.74 (4.60-5.80) X10*6/uL Hgb 14.4 (14.0-18.0) g/dl Hct 43.1 (42.0-52.0) % MCV 90.9 (80.0-98.0) fL MCH 30.4 (27.0-33.0) pg MCHC 33.4 (31.0-36.0) g/dl RDW 13.1 (11.0-16.0) % Plt Count 205 (160-400) X10*3/uL MPV 10.7 (9.4-12.4) fL Immature Gran % (Auto) 0.4 (0.0-0.4) % Neut % (Auto) 53.0 (45-73) % Lymph % (Auto) 33.0 (20-40) % Mcduffie % (Auto) 8.0 (2-11) % Eos % (Auto) 5.0 H (0-4) % Baso % (Auto) 0.6 (0-2) % Lymph # (Auto) 2.6 (1.2-4.9) X10*3/uL [place]duffie # (Auto) 0.6 (0.1-1.2) X10*3/uL Eos # (Auto) 0.4 (0.0-0.4) X10*3/uL Baso # (Auto) 0.1 (0.0-0.2) X10*3/uL Abs Immat Gran (auto) 0.03 (0.00-0.03) X10*3/uL Absolute Neuts (auto) 4.2 (2.0-8.3) x10*3/uL Absolute Nucleated RBC 0.000 (0.0-0.012) X10*3/uL Nucleated RBC % (auto) 0.0 (0.0-0.2) /100WBC Sodium 138 (135-145) mmol/L Potassium 4.1 (3.3-5.1) mmol/L Chloride 107 (96-108) mmol/L Carbon Dioxide 24 (22-29) mmol/L Anion Gap 11 L (12-20) BUN 14 (9-16) mg/dL Creatinine 1.15 (0.5-1.4) mg/dL Estim Creat Clear Calc 71.7 Estimated GFR > 60 Random Glucose 199 H (60-115) mg/dL Calcium 9.7 (8.4-10.2) mg/dL Magnesium 1.6 (1.6-2.6) mg/dL Total Bilirubin 0.2 (0.0-1.0) mg/dL AST 38 H (5-37) U/L ALT 47 H (0-40) U/L Alkaline Phosphatase 72 (39-117) U/L Troponin I High Sens 9.7 (<3.5-35.0) ng/L Total Protein 7.6 (6.5-8.0) g/dL Albumin 4.2 (3.5-5.0) g/dL Lipase 29 (8-78) U/L Independent Interpretation I performed an independent interpretation of an: EKG (My interpretation of patient's EKG showed a sinus rhythm with a partial right bundle branch block. No significant change from previous. No acute ST segment elevations.) Radiology Impression Discussion of test interpretation with radiology: I have reviewed the radiologist's reading. Discharge Plan Discharge Clinical Impression: Hypertensive urgency, Headache Patient Disposition: Home, Self-Care Instructions: Acute Headache (DC), Hypertensive Crisis (ED) Additional Instructions: Significant blockage was found in 1 of your blood vessels in your neck. Please follow-up with vascular surgery. The phone number was provided. Please increase the dose of your lisinopril from 20 mg to 40 mg per day Prescriptions: New aspirin 81 mg tablet,chewable 81 mg PO DAILY Qty: 30 0RF No Action acetaminophen [Tylenol Arthritis Pain] 650 mg tablet extended release 650 mg PO Q12H PRN (Reason: fever or pain) Qty: 60 0RF omeprazole 20 mg capsule,delayed release(DR/EC) 20 mg PO DAILY PRN (Reason: heartburn) Qty: 90 1RF (DME) FreeStyle Lite Strips Strip See Rx Instructions .Route Qty: 100 3RF Rx Instructions: check blood sugar once a day AC metformin 1,000 mg tablet 1,000 mg PO BID Qty: 180 1RF Incruse Ellipta 62.5 mcg/actuation blister with device 1 inh PO DAILY Qty: 30 2RF zolpidem 10 mg tablet 10 mg PO BEDTIME PRN (Reason: sleep) 30 Days Qty: 30 3RF lisinopril 20 mg tablet 20 mg PO DAILY Qty: 90 1RF albuterol sulfate [Ventolin HFA] 90 mcg/actuation HFA aerosol inhaler 2 puff PO Q4H PRN (Reason: for dyspnea) Qty: 18 2RF budesonide-formoterol [Symbicort] 160-4.5 mcg/actuation HFA aerosol inhaler 2 puff PO BID Qty: 10.2 3RF rosuvastatin 5 mg tablet 5 mg PO BEDTIME (DME) blood sugar diagnostic Strip See Rx Instructions Not Applicable DAILY Qty: 10 Rx Instructions: As directed (DME) nebulizers Misc See Rx Instructions .Route Rx Instructions: As directed albuterol sulfate 2.5 mg /3 mL (0.083 %) solution for nebulization 2.5 mg inhalation Q6H PRN (Reason: for dyspnea) Qty: 180 6RF Referrals: Brett Rivrea MD [Physician] - 12/02/24 Print Language: Moldovan
[2024-11-30 20:21] VITALS: BP 199/116
[2024-11-30] MEDS: lisinopriL 20 MG TABLET PO (20:21)
[2024-11-30] MEDS: Metoclopramide HCl 10 MG/2 ML VIAL IVPUSH (20:22)
[2024-11-30] MEDS: diphenhydrAMINE HCL 50 MG/ML VIAL 25 MG IVPUSH (20:22)
--- NOTE | 2024-11-30 20:24 | PC.NURSE ---
bedside nursing swallow screen completed at this time due to pt complaining of head and neck pain, pt passed swallow eval. pt medicated per nov.
[2024-11-30] MEDS: iohexoL 350 MG/ML 100 ML INFUS..BTL 70 ML IV (20:30)
[2024-11-30] MEDS: Aspirin 81 MG TAB.CHEW PO (21:26)
[2024-11-30 21:28] VITALS: BP 168/100; PULSE 86; RESP 17; TEMP 36.8; O2SAT 95
== END 2024-11-30 21:30 | disposition home or self-care (01) ==
PROVIDERS: Physician Assistant; Emergency Provider Emergency Medicine Emergency Medical Services; PCP Internal Medicine
DX: I16.0 Hypertensive urgency (principal); R51.9 Headache, unspecified; R53.1 Weakness; R29.700 NIHSS score 0; E11.9 Type 2 diabetes mellitus without complications; I10 Essential (primary) hypertension; E78.5 Hyperlipidemia, unspecified; J44.9 Chronic obstructive pulmonary disease, unspecified; Z87.891 Personal history of nicotine dependence; Z79.84 Long term (current) use of oral hypoglycemic drugs; Z79.899 Other long term (current) drug therapy; Z79.02 Long term (current) use of antithrombotics/antiplatelets
CPT/HCPCS: 36415; 70450; 70496; 70498; 80053; 83690; 83735; 84484; 85025; 93005; 96374; 96375; 99284; 99285; J1200; J2765; Q9967

== ENCOUNTER → 2024-11-30 18:38 | Outpatient (BNV) | payer OTHER, SELFPAY | PROVIDERS: Emergency Provider Emergency Medicine Emergency Medical Services; PCP Internal Medicine; Visit Provider Internal Medicine | DX: I49.1 Atrial premature depolarization (principal); I45.10 Unspecified right bundle-branch block | CPT/HCPCS: 93010 ==

== ENCOUNTER → 2024-11-30 18:42 | Outpatient (BNV) | payer OTHER, SELFPAY | PROVIDERS: Emergency Provider Emergency Medicine Emergency Medical Services; PCP Internal Medicine; Visit Provider Radiology Diagnostic Radiology | DX: I65.02 Occlusion and stenosis of left vertebral artery (principal); G31.89 Other specified degenerative diseases of nervous system; I67.82 Cerebral ischemia | CPT/HCPCS: 70450; 70496; 70498 ==

== ENCOUNTER 2024-12-10 14:33 | Outpatient (AMB) | payer OTHER, SELFPAY ==
[2024-12-10 14:37] VITALS: BP 170/98; PULSE 80; O2SAT 96
--- NOTE | 2024-12-10 14:37 | A.OFFPC_ITS ---
Vital Signs 12/10/24 14:37 Height 5 ft 6 in BP 170/98 H Blood Pressure Location Lt brachial Position Sitting Pulse 80 Pulse Source Pulse Oximeter Pulse Oximetry (%) 96 Oxygen Delivery Method Room Air Intake Visit Reasons: HDF ~ Post hospital discharge FU Satellite Specialist Required: No Accompanied by: Self / Same As Patient Allergies No Known Allergies Allergy (Verified 12/10/24 14:37) Medication List - Last Reconciled 12/10/24 by Pan Webster MD acetaminophen ER (Tylenol Arthritis Pain) 650 mg PO Q12H PRN albuterol sulfate 2.5 mg (3 mL) inhalation Q6H PRN albuterol sulfate 90 mcg/actuation (Ventolin HFA) 2 puffs PO Q4H PRN aspirin 81 mg PO DAILY blood sugar diagnostic As directed blood sugar diagnostic (FreeStyle Lite Strips) check blood sugar once a day AC budesonide-formoterol 160-4.5 mcg/actuation (Symbicort) 2 puffs PO BID lisinopril 40 mg PO DAILY metformin 1,000 mg PO BID nebulizers As directed omeprazole 20 mg PO DAILY PRN rosuvastatin 5 mg PO BEDTIME umeclidinium 62.5 mcg/actuation (Incruse Ellipta) 1 inh PO DAILY zolpidem 10 mg PO BEDTIME PRN 30 days Tobacco use date assessed: 10/12/24 Dental Screening Dental Screen Date: 10/12/24 HPI HDF ~ Post hospital discharge FU HPI Details Patient is a 59-year-old gentleman came in today for emergency room visit follow-up Patient was at [facility] 11th of this month when he presented with a chief complaint of sudden onset of right-sided headache which was splitting Patient has a history of CVA in the past with residual right-sided weakness Patient is on no blood thinners His blood pressure was 2 10 x 119 at triage Which came down to 173-105 He also has a history of COPD and diabetes CT head was negative for bleed CTA head and neck was done, which showed no large vessel occlusion There was V4 segment of the right vertebral vessel stenosis for that vascular was consulted and he recommended that patient start taking aspirin and statin Patient is on lisinopril 20 mg only He verbalized to being on 4 medications prior which were gradually tapered off He had EKG done which showed sinus rhythm with partial right bundle branch block No significant change from previous His lisinopril was increased to 40 mg Which patient is taking His blood pressure continued to be elevated He is monitoring it at home as I see that his heart rate does dip to 60s at times at home He has a appointment with the vascular specialist next week Meanwhile I am starting him on Procardia 30 mg And atorvastatin 40 mg, patient is to stop rosuvastatin 5 mg He need to come back and see PCP in 3 weeks Continue monitoring blood pressure at home Headache is better but still having it. [facility] Medical History Diverticulosis Hx of adenomatous polyp of colon COPD exacerbation Influenza Elevated parathyroid hormone Skin tags, multiple acquired Tubular adenoma of colon Fatigue Trimalleolar fracture of left ankle Primary insomnia GERD (gastroesophageal reflux disease) Cervical radiculopathy due to degenerative joint disease of spine Obstructive sleep apnea Dyslipidemia Compression fracture of lumbar spine, non-traumatic COPD (chronic obstructive pulmonary disease) Pulmonary nodule seen on imaging study Coronary artery disease Type 2 diabetes mellitus without complication, without long-term current use of insulin Essential hypertension Surgical History Hx of colonoscopy Status post open reduction and internal fixation (ORIF) of fracture History of surgery Family History Father ETOH abuse Mother CVD (cardiovascular disease) Hx of CABG Brother No problems noted. Brother No problems noted. Sister No problems noted. Sister No problems noted. Sister No problems noted. Sister No problems noted. Sister No problems noted. Son No problems noted. Son No problems noted. Son No problems noted. Son No problems noted. Son No problems noted. 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 Milton Tracy, Loraine Jose, Donnell Causey and colleagues, with an educational paulino from [employer]. Physical exam (Primary Care) Vital Signs: Last Vital Signs Pulse 80 12/10/24 14:37 BP 170/98 H 12/10/24 14:37 Pulse Ox 96 12/10/24 14:37 Oxygen Delivery Method Room Air 12/10/24 14:37 Tobacco/Smoking Status: Tobacco use Status Tobacco use date assessed 10/12/24 12/10/24 14:38 Patient Tobacco Use Status Former Tobacco user 12/10/24 14:38 e-Cigarette/Vaping Use Never Used 12/10/24 14:38 Thrive Assessment: Date of Thrive Assessment Date Thrive assessed 12/10/24 12/10/24 14:38 Coding Level of Care Code Est Pt Level 5 (95790) Diagnoses Uncontrolled hypertension I10 Other headache syndrome G44.89 Headache type: other headache syndrome Asymptomatic stenosis of right vertebral artery I65.01 Laterality: right Time Spent (min) 40 Comment Reviewing hospital notes, labs, [id number] with the patient, coordination of care Assessment & Plan Assessment & Plan (1) Uncontrolled hypertension: Code(s): I10 - Essential (primary) hypertension Category: Medical (2) Headache: Code(s): R51.9 - Headache, unspecified Category: Medical Qualifiers: Headache type: other headache syndrome Qualified Code(s): G44.89 - Other headache syndrome (3) Vertebral artery stenosis, asymptomatic: Code(s): I65.09 - Occlusion and stenosis of unspecified vertebral artery Category: Medical Qualifiers: Laterality: right Qualified Code(s): I65.01 - Occlusion and stenosis of right vertebral artery Plan Patient is a 59-year-old gentleman came in today for emergency room visit follow-up Patient was at [facility] 11th of this month when he presented with a chief complaint of sudden onset of right-sided headache which was splitting Patient has a history of CVA in the past with residual right-sided weakness Patient is on no blood thinners His blood pressure was 2 10 x 119 at triage Which came down to 173-105 He also has a history of COPD and diabetes CT head was negative for bleed CTA head and neck was done, which showed no large vessel occlusion There was V4 segment of the right vertebral vessel stenosis for that vascular was consulted and he recommended that patient start taking aspirin and statin Patient is on lisinopril 20 mg only He verbalized to being on 4 medications prior which were gradually tapered off He had EKG done which showed sinus rhythm with partial right bundle branch block No significant change from previous His lisinopril was increased to 40 mg Which patient is taking His blood pressure continued to be elevated He is monitoring it at home as I see that his heart rate does dip to 60s at times at home He has a appointment with the vascular specialist next week Meanwhile I am starting him on Procardia 30 mg And atorvastatin 40 mg, patient is to stop rosuvastatin 5 mg He need to come back and see PCP in 3 weeks Continue monitoring blood pressure at home Headache is better but still having it. Medications: New atorvastatin 40 mg PO BEDTIME 90 tabs 0RF nifedipine ER (Procardia XL) 30 mg PO DAILY 30 tabs 0RF Changed From lisinopril 40 mg PO DAILY I10 - Essential (primary) hypertension To lisinopril 40 mg PO DAILY 90 tabs 0RF 90 days I10 - Essential (primary) hypertension Discontinued rosuvastatin Discontinued Reason: Doctor's Order 5 mg PO BEDTIME
--- OUTSIDE RECORDS SUMMARY | 2024-12-10 16:47 | XMS_ITS | Clinical Summary ---
Author Organization [facility] Address [address] [place] [address] Care Team Providers Care Ring Barker Operator Name Role Phone Unavailable Primary Care [...]
--- OUTSIDE RECORDS SUMMARY | 2024-12-10 16:47 | XMS_ITS | Patient Health Record ---
Author Organization [facility] Address [address] [place] [address] Care Team Providers Care Thermograph Operator Name Role Phone Chloe Garrison MD Primary Care Provider Milton López [phone] Reason For Referral No Information Medications Medication [...] Problem Status W/U Status Risk Notes Problem [id number] Encounter for screening for malignant neoplasm of colon (Z12.11) Active confirmed Problem Screening for malignant neoplasm of rectum (555210950) Encounter for screening for malignant neoplasm of rectum (Z12.12) Active confirmed Problem 903917357 Long-term use of aspirin therapy (Z79.82) Active confirmed Plan Of Treatment Pending Test Test Name Order Date GI BIOPSY 03/04/2016 Future Test Test Name Order Date COLONOSCOPY 11/29/2015 Insurance Providers Payer Name Payer Address Payer Phone Subscriber Number Group Number Insured Name Patient Relationship to Insured Coverage Start Date Coverage End Date [facility] [address] [place] [address] [id number] AMARILIS PROCTOR Self - patient is the insured Medical (General) History Medical History History ICD Code NIDDM Hyperlipidemia Hypertension 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
== END 2024-12-10 15:05 | disposition home or self-care (01) ==
LOC: HO.HMCC 14:34
PROVIDERS: PCP Internal Medicine; Visit Provider Internal Medicine
DX: I10 Essential (primary) hypertension (principal); G44.89 Other headache syndrome; I65.01 Occlusion and stenosis of right vertebral artery

== ENCOUNTER → 2024-12-10 14:33 | Outpatient (BNVA) | payer OTHER, SELFPAY | PROVIDERS: PCP Internal Medicine; Visit Provider Internal Medicine | DX: I10 Essential (primary) hypertension (principal); G44.89 Other headache syndrome; I65.01 Occlusion and stenosis of right vertebral artery | CPT/HCPCS: 99212 ==

== ENCOUNTER 2024-12-16 09:19 | Outpatient (AMB) | payer OTHER, SELFPAY ==
--- NOTE | 2024-12-16 09:46 | MHC.OFFVIS ---
Vital Signs 12/16/24 10:10 Height 5 ft 6 in BP 130/85 Blood Pressure Location Lt brachial Position Sitting Intake Visit Reasons: [employer]/ED referral for carotid stenosis Intake Note: Patient presents for carotid stenosis. No complaints. Accompanied by: Self / Same As Patient Allergies No Known Allergies Allergy (Verified 12/16/24 09:48) HPI HPI [employer]/ED referral for carotid stenosis: Details: The patient is a 59-year-old male presenting with evaluation regarding carotid stenosis.. Two weeks ago, after experiencing a severe headache and neck discomfort, he was evaluated in the emergency department where his blood pressure was recorded at 210/119 mmHg. This episode instigated his visit to the hospital following advice from a nurse due to earlier high blood pressure readings. Medication administered in the emergency slightly reduced his blood pressure, but headaches have persisted. The patient reports further consultation with primary care, resulting in an increased prescription for his cholesterol medication. At the time of our examination his blood pressure was much better controlled at 130/85. He does report that his headaches have significantly improved. He is currently under medical medical management. He is being maintained on aspirin and statin. He now presents to us for vascular evaluation [facility] Medical History Diverticulosis Hx of adenomatous polyp of colon COPD exacerbation Influenza Elevated parathyroid hormone Skin tags, multiple acquired Tubular adenoma of colon Fatigue Trimalleolar fracture of left ankle Primary insomnia GERD (gastroesophageal reflux disease) Cervical radiculopathy due to degenerative joint disease of spine Obstructive sleep apnea Dyslipidemia Compression fracture of lumbar spine, non-traumatic COPD (chronic obstructive pulmonary disease) Pulmonary nodule seen on imaging study Coronary artery disease Type 2 diabetes mellitus without complication, without long-term current use of insulin Essential hypertension Surgical History Hx of colonoscopy Status post open reduction and internal fixation (ORIF) of fracture History of surgery Family History Father ETOH abuse Mother CVD (cardiovascular disease) Hx of CABG Brother No problems noted. Brother No problems noted. Sister No problems noted. Sister No problems noted. Sister No problems noted. Sister No problems noted. Sister No problems noted. Son No problems noted. Son No problems noted. Son No problems noted. Son No problems noted. Son No problems noted. 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 Cognitive needs: No Hearing needs: No Vision needs: No Review of Systems Const All systems reviewed & are unremarkable except as noted in HPI and below Reports no additional complaints ENT Reports Normal hearing present Card Denies chest pain, Denies chest pain at rest, Denies chest pain with activity and Denies pedal edema Resp Denies cough GI Denies abdominal pain Musc Denies abnormal gait, Denies muscle cramps and Denies radiating pain into limb Skin/Breast Denies skin ulcer and Denies wounds Neuro Reports Normal hearing present and Denies abnormal gait Psych Reports no additional complaints Physical Exam Vital Signs: Last Vital Signs BP 130/85 12/16/24 10:10 Const General: cooperative, healthy appearing and comfortable Orientation/consciousness: oriented to person, oriented to place and oriented to time HEENT Head: Yes normal to inspection Neck Neck: Yes normal visual inspection Carotids: no bruits Chest Chest palpation & inspection: normal inspection of the chest Resp Effort & Inspection: normal respiratory effort and able to speak in complete sentences Auscultation: clear to auscultation bilaterally, no crackles, no rales, no rhonchi and no wheezes Cardio Rate: regular rate Rhythm: regular rhythm Heart sounds: S1 normal heart sound present and S2 normal heart sound present Bruits: no carotid bruits Peripheral pulses: Peripheral pulses 2+ throughout GI Inspection: Yes normal to inspection Skin Wounds: no wounds Hair: normal Neuro General: oriented to person, oriented to place and oriented to time Cranial nerves: Yes CN's II-XII intact bilaterally and Yes Normal hearing present Cognition (Neuro): normal cognition Motor exam (neuro): 5/5 motor strength present throughout Extrem Other: venous exam: No significant superficial varicosities or spider telangiectasias, minimal edema General: No clubbing, No cyanosis and No edema Psych Appearance: grossly normal Mental Status: mental status grossly normal Speech and movement: Normal speech and movement present Results Reviewed Results Reviewed: CT angiogram of neck dated 11/30/2024 demonstrates minimal narrowing at carotid origins. Severe right and moderate left V4 segment stenosis Assessment & Plan Assessment & Plan (1) Bilateral carotid artery stenosis: Code(s): I65.23 - Occlusion and stenosis of bilateral carotid arteries Category: Medical Plan: I discussed with the patient that the likely cause of his symptoms was marked hypertension, with his CAT scan showing no significant findings. I advised continuing antihypertensive medication and considering lifestyle adjustments to manage blood pressure effectively, emphasizing adherence to the increased cholesterol medication prescribed by his primary doctor. We agreed upon obtaining a follow-up ultrasound in six months to reassess the carotid vessels. In case of any acute neurological symptoms or elevated blood pressures, further emergency assessment was recommended. Plan Patient was informed and verbally consented to the use of an ambient scribe for clinic note documentation during this visit. Orders: Orders US carotid duplex BI 6 Months I65.23 - Occlusion and stenosis of bilateral carotid arteries Patient Instructions: - Continue antihypertensive medication as prescribed. - Adhere to the revised cholesterol medication dosage. - Follow up for an ultrasound in six months to assess carotid vessels. - Seek immediate medical attention if experiencing stroke-like symptoms or severe headache increases. Coding Level of Care Code Est Pt Level 4 (44331) Diagnoses Bilateral carotid artery stenosis I65.23
[2024-12-16 10:10] VITALS: BP 130/85
--- OUTSIDE RECORDS SUMMARY | 2024-12-16 11:06 | XMS_ITS | Encounter Summary ---
Author Organization [facility] Address [address] [place] [address] Care Team Providers Care Security System Analyst Name Role Phone Pan Webster MD Primary Care Provider Chloe Clarke Md, MD Primary Care Provider Unavailable Reason for Visit * Reason Onset Date Comments other 01/13/2018 Registration Encounter Details Date Type Department Care Team Description 01/13/2018 Telephone Pulmonology - [place] [address] [facility] [address] [place] [address] Dangelo Rankin MD other (Registration) Social History Tobacco Use Types Packs/Day Years Used Date Smoking Tobacco: Former Alcohol Use Standard Drinks/Week Comments Not Asked 0 (1 standard drink = 0.6 oz pur e alcohol) Sex Assigned at Date Recorded Not on file documented as of this encounter Miscellaneous Notes * Telephone Encounter - Zakiya Altman - 01/14/2018 10:01 AM EDT See below * Telephone Encounter - Annika Perez - 01/14/2018 8:56 AM EDT Pt is returning call the correct spelling of his first name is Trey. He needs to get it changed on his license. Thanks. * Telephone Encounter - Zakiya Altman - 01/13/2018 2:21 PM EDT LVM for patient to call back. We need correct spelling of his name since his license has his name Peña and his insurance and paperwork has it as Trey . Please verify documented in this encounter Plan of Treatment Not on file documented as of this encounter Visit Diagnoses Not on filedocumented in this encounter Care Teams Security System Analyst Relationship Specialty Start Date End Date Pan Webster MD PCP - General Internal Medicine 11/01/11 09/28/18 Chloe Garrison MD, MD PCP - General Internal Medicine 09/29/18 documented as of this encounter
--- OUTSIDE RECORDS SUMMARY | 2024-12-16 11:06 | XMS_ITS | Encounter Summary ---
Author Organization [facility] Address [address] [place] [address] Care Team Providers Care Professional Development Director Name Role Phone Chloe Garrison Md, MD Primary Care Provider Unavailable Reason for Visit * Reason Onset Date Comments refill request 10/07/2018 Encounter Details Date Type Department Care Team Description 10/07/2018 Refill Pulmonology - [address] [place] [id number] Dangelo Rankin MD refill request Social History Tobacco Use Types Packs/Day Years Used Date Smoking Tobacco: Former Alcohol Use Standard Drinks/Week Comments Not Asked 0 (1 standard drink = 0.6 oz pur e alcohol) Sex Assigned at Date Recorded Not on file documented as of this encounter Miscellaneous Notes * Telephone Encounter - Xuan NoemíPetraPhilip - 10/07/2018 10:01 AM EST Patient would like script to be: E-PRESCRIBED/FAXED TO PHARMACY When was the patients last office visit in Adult Medicine?: 06/29/2018 When was the last time the patient saw their PCP? Does patient have an upcoming appointment? Yes 12/28/2018 (THE MEDICATION IS NOT ON THE MED LIST AND IS IDENTIFIED BELOW): {MED LIST:12501) Med name: daliresp Dosage: 500mg # of tablets: Local pharmacy with request for 30 -day supply Instructions: Did you check the pharmacy information above?: YES Patients current [place] / Product Type: [place]AREFEE-FOR-SERVICE documented in this encounter Plan of Treatment Not on file documented as of this encounter Visit Diagnoses Not on filedocumented in this encounter Care Teams Professional Development Director Relationship Specialty Start Date End Date Chloe Garrison MD, MD PCP - General Internal Medicine 09/29/18 documented as of this encounter
--- OUTSIDE RECORDS SUMMARY | 2024-12-16 11:06 | XMS_ITS | Encounter Summary ---
Author Organization [facility] Address [address] [place] [address] Care Team Providers Care Certified Nursing Assistant Name Role Phone Chloe Garrison Md, MD Primary Care Provider Unavailable Encounter Details Date Type Department Care Team Description 07/15/2019 Release of Information Medical Records [address] [place] [address] Abstract, Provider Social History Tobacco Use Types Packs/Day Years Used Date Smoking Tobacco: Former Smokeless Tobacco: Never Alcohol Use Standard Drinks/Week Comments Not Asked 0 (1 standard drink = 0.6 oz pur e alcohol) Sex Assigned at Date Recorded Not on file documented as of this encounter Plan of Treatment Not on file documented as of this encounter Visit Diagnoses Not on filedocumented in this encounter Care Teams Certified Nursing Assistant Relationship Specialty Start Date End Date Chloe Garrison MD, MD PCP - General Internal Medicine 09/29/18 documented as of this encounter
--- OUTSIDE RECORDS SUMMARY | 2024-12-16 11:06 | XMS_ITS | Encounter Summary ---
Author Organization [facility] Address [address] [place] [address] Care Team Providers Care Instructional Technology Specialist Name Role Phone Pan Webster MD Primary Care Provider Anitra e Chloe Garrison Md, MD Primary Care Provider Unavailable Encounter Details Date Type Department Care Team Description 06/03/2013 Cloth Wire Weaver Report Medical Records [address] [place] [address] Juan Gonzalez MD Social History Tobacco Use Types Packs/Day Years Used Date Smoking Tobacco: Some Days Alcohol Use Standard Drinks/Week Comments Not Asked 0 (1 standard drink = 0.6 oz pur e alcohol) Sex Assigned at Date Recorded Not on file documented as of this encounter Plan of Treatment Not on file documented as of this encounter Visit Diagnoses Not on filedocumented in this encounter Care Teams Instructional Technology Specialist Relationship Specialty Start Date End Date Pan Webster MD PCP - General Internal Medicine 11/01/11 09/28/18 Chloe Garrison MD, MD PCP - General Internal Medicine 09/29/18 documented as of this encounter
--- OUTSIDE RECORDS SUMMARY | 2024-12-16 11:06 | XMS_ITS | Patient Health Record ---
Author Organization [facility] Address [address] [place] [address] Care Team Providers Care Local Company Refrigerated Truck Driver Name Role Phone Chloe Garrison MD Primary Care Provider Milton López [phone] Reason For Referral No Information Medications Medication [...] Problem Status W/U Status Risk Notes Problem [id number] Encounter for screening for malignant neoplasm of colon (Z12.11) Active confirmed Problem Screening for malignant neoplasm of rectum (763316723) Encounter for screening for malignant neoplasm of rectum (Z12.12) Active confirmed Problem 682085438 Long-term use of aspirin therapy (Z79.82) Active confirmed Plan Of Treatment Pending Test Test Name Order Date GI BIOPSY 03/04/2016 Future Test Test Name Order Date COLONOSCOPY 11/29/2015 Insurance Providers Payer Name Payer Address Payer Phone Subscriber Number Group Number Insured Name Patient Relationship to Insured Coverage Start Date Coverage End Date [facility] [address] [place] [address] [id number] AMARILIS PROCTOR Self - patient is the insured Medical (General) History Medical History History ICD Code NIDDM Hyperlipidemia Hypertension 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
--- OUTSIDE RECORDS SUMMARY | 2024-12-16 11:06 | XMS_ITS | Encounter Summary ---
Author Organization [facility] Address [address] [place] [address] Care Team Providers Care Transfer Clerk Name Role Phone Chloe Garrison Md, MD Primary Care Provider Unavailable Encounter Details Date Type Department Care Team Description 01/13/2019 Transfer Records Medical Records [address] [place] [address] Abstract, Provider Social History Tobacco Use Types [...] on filedocumented in this encounter Care Teams Transfer Clerk Relationship Specialty Start Date End Date Chloe Garrison MD, MD PCP - General Internal Medicine 09/29/18 documented as of this encounter
--- OUTSIDE RECORDS SUMMARY | 2024-12-16 11:06 | XMS_ITS | Encounter Summary ---
Author Organization [facility] Address [address] [place] [address] Care Team Providers Care Claim Administrator Name Role Phone Pan Webster MD Primary Care Provider Chloe Clrake Md, MD Primary Care Provider Unavailable Reason for Visit * Reason Onset Date Comments Prior Authorization 01/23/2018 Encounter Details Date Type Department Care Team Description 01/23/2018 Telephone Pulmonology - [address] [place] [address] Pan Webster MD Prior Authorization Social History Tobacco Use Types Packs/Day Years Used Date Smoking Tobacco: Former Alcohol Use Standard Drinks/Week Comments Not Asked 0 (1 standard drink = 0.6 oz pur e alcohol) Sex Assigned at Date Recorded Not on file documented as of this encounter Miscellaneous Notes * Telephone Encounter - Alycia Garcia M.A. - 01/26/2018 9:37 AM EDT Spoke to pharmacy and they state there is no pending prior auth for this pt. He has filled all his medications. Maybe prior auth was sent in error. The prior auth we received was only a hallman code and the hallman code did not pull anything up in cover my meds. Please reply back to p [phone] Prior Auth pool Alycia Garcia M.A. Regional Prior Authorizations Ext [id number] * Telephone Encounter - Iris aGn - 01/23/2018 1:55 PM EDT Pre Authorization for Medication-do not complete and send this encounter unless you have the fax from the pharmacy. Is this a Cover My Meds request: Yes -- Hallman Code [id number] Name of Medication Dose of Medication How does patient take this med? What Pharmacy did the fax come from: Pharmacy fax #: [facility] Information from fax: What Prescription Plan does the patient have? BIN/PCN if applicable: Cardholder ID Person Code: Relationship Code: Help desk phone: documented in this encounter Plan of Treatment Not on file documented as of this encounter Visit Diagnoses Not on filedocumented in this encounter Care Teams Claim Administrator Relationship Specialty Start Date End Date Pan Webster MD PCP - General Internal Medicine 11/01/11 09/28/18 Chloe Garrison MD, PCP - General Internal Medicine 09/29/18 documented as of this encounter
== END 2024-12-16 10:23 | disposition home or self-care (01) ==
LOC: HO.HVS 09:19
PROVIDERS: PCP Internal Medicine; Visit Provider Surgery Vascular Surgery
DX: I65.23 Occlusion and stenosis of bilateral carotid arteries (principal)
CPT/HCPCS: 99214

== ENCOUNTER → 2024-12-16 09:19 | Outpatient (BNVA) | payer OTHER, SELFPAY | PROVIDERS: PCP Internal Medicine; Visit Provider Surgery Vascular Surgery | DX: I65.23 Occlusion and stenosis of bilateral carotid arteries (principal) | CPT/HCPCS: 99212 ==

== ENCOUNTER 2025-01-03 12:47 | Outpatient (AMB) | payer OTHER, SELFPAY ==
[2025-01-03 13:14] VITALS: BP 118/70; PULSE 79; RESP 16; O2SAT 97; BMI 31.1
--- NOTE | 2025-01-03 13:14 | A.OFFPC_ITS ---
Vital Signs 01/03/25 13:14 Height 5 ft 6 in Weight 193 lb BMI 31.1 BP 118/70 Blood Pressure Location Lt brachial Position Sitting Respiration 16 Pulse 79 Pulse Source Pulse Oximeter Pulse Oximetry (%) 97 Oxygen Delivery Method Room Air Intake Visit Reasons: 3 weeks f/up- per dr Lynn Intake Note: Pt is here today f/u Allergies No Known Allergies Allergy (Verified 01/16/25 15:24) Medication List - Last Reconciled 01/16/25 by Chloe Garrison MD acetaminophen ER (Tylenol Arthritis Pain) 650 mg PO Q12H PRN albuterol sulfate 2.5 mg (3 mL) inhalation Q6H PRN albuterol sulfate 90 mcg/actuation (Ventolin HFA) 2 puffs PO Q4H PRN aspirin 81 mg PO DAILY atorvastatin 40 mg PO BEDTIME blood sugar diagnostic As directed blood sugar diagnostic (FreeStyle Lite Strips) check blood sugar once a day AC budesonide-formoterol 160-4.5 mcg/actuation (Symbicort) 2 puffs PO BID lisinopril 40 mg PO DAILY 90 days metformin 1,000 mg PO BID nebulizers As directed nifedipine ER (Procardia XL) 30 mg PO DAILY omeprazole 20 mg PO DAILY PRN umeclidinium 62.5 mcg/actuation (Incruse Ellipta) 1 inh PO DAILY zolpidem 10 mg PO BEDTIME PRN 30 days Tobacco use date assessed: 01/03/25 Dental Screening Dental Screen Date: 01/03/25 Did you have a dental visit in the last 12 months?: Yes Did you have a dental problem in the last 6 months where you did not have access to dental care?: No Was dental information given to patient?: Patient has dentist HPI 3 weeks f/up- per dr Lynn HPI Details 59-year-old male with history of hyperte nsion, diabetes mellitus, bilateral carotid artery stenosis followed by vascular surgery, here today for follow-up on his blood pressure. Patient has been taking lisinopril 40 mg daily and nifedipine 30 mg once a day, with blood pressure now well controlled. Denies any further episodes of headache, no chest pain or shortness of breath. [facility] Medical History Diverticulosis Hx of adenomatous polyp of colon COPD exacerbation Influenza Elevated parathyroid hormone Skin tags, multiple acquired Tubular adenoma of colon Fatigue Trimalleolar fracture of left ankle Primary insomnia GERD (gastroesophageal reflux disease) Cervical radiculopathy due to degenerative joint disease of spine Obstructive sleep apnea Dyslipidemia Compression fracture of lumbar spine, non-traumatic COPD (chronic obstructive pulmonary disease) Pulmonary nodule seen on imaging study Coronary artery disease Type 2 diabetes mellitus without complication, without long-term current use of insulin Essential hypertension Surgical History Hx of colonoscopy Status post open reduction and internal fixation (ORIF) of fracture History of surgery Family History Father ETOH abuse Mother CVD (cardiovascular disease) Hx of CABG Brother No problems noted. Brother No problems noted. Sister No problems noted. Sister No problems noted. Sister No problems noted. Sister No problems noted. Sister No problems noted. Son No problems noted. Son No problems noted. Son No problems noted. Son No problems noted. Son No problems noted. 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 Milton Tracy, Loraine Jose, Donnell Causey and colleagues, with an educational paulino from [employer]. Review of Systems Const Reports no additional complaints Eyes Denies change in vision ENT Reports no additional complaints and Reports Normal hearing present Card Denies chest pain, Denies chest pain at rest, Denies chest pain with activity, Denies pedal edema and Denies dyspnea Resp Denies cough and Denies dyspnea GI Denies abdominal pain Musc Denies abnormal gait, Denies muscle cramps and Denies radiating pain into limb Skin/Breast Denies skin ulcer and Denies wounds Neuro Reports Normal hearing present, Denies abnormal gait and Denies Sensory deficit (Neuro) Psych Reports no additional complaints Physical exam (Primary Care) Vital Signs: Last Vital Signs Pulse 79 01/03/25 13:14 Resp 16 01/03/25 13:14 BP 118/70 01/03/25 13:14 Pulse Ox 97 01/03/25 13:14 Oxygen Delivery Method Room Air 01/03/25 13:14 BMI result Body Mass Index 31.1 Tobacco/Smoking Status: Tobacco use Status Tobacco use date assessed 01/03/25 01/03/25 13:19 Patient Tobacco Use Status Former Tobacco user 01/03/25 13:14 e-Cigarette/Vaping Use Never Used 01/03/25 13:14 Thrive Assessment: Date of Thrive Assessment Date Thrive assessed 12/10/24 01/03/25 13:14 Const General: cooperative and no acute distress Nutritional Appearance: overweight Orientation/consciousness: patient oriented x3 HENMT Head: Yes normocephalic Ears: external ears normal General nose exam: Normal external nose present Mouth: moist mucous membranes Eyes General: appearance normal, both eyes and all related structures Neck Neck: Yes full ROM Resp Effort & Inspection: normal respiratory effort and able to speak in complete sentences Auscultation: clear to auscultation bilaterally Cardio Heart sounds: S1 normal heart sound present and S2 normal heart sound present GI Inspection: Yes Abdominal panniculus present and Yes obesity Palpation (GI): Soft to palpation and nontender Auscultation: normal bowel sounds Skin General skin exam: dry skin and ecchymosis Rashes: no rashes Neuro General: patient oriented x3, gait normal and moves all extremities Cranial nerves: Yes Normal hearing present Motor exam (neuro): 5/5 motor strength present throughout Sensory Exam: No Sensory deficit (Neuro) Extrem General: Yes full ROM, Yes no joint enlargement, Yes no pedal edema and Yes nor mal gait Psych Speech and movement: Normal speech and movement present Coding Level of Care Code Est Pt Level 4 (90999) Complex EM visit Add On G2211 Diagnoses Essential hypertension I10 Bilateral carotid artery stenosis I65.23 Dyslipidemia E78.5 Assessment & Plan Assessment & Plan (1) Essential hypertension: Code(s): I10 - Essential (primary) hypertension Category: Medical Plan: Blood pressure at goal of less than 130/80. Continue with lisinopril and nifedipine at same dose. Reinforced importance of following a low sodium diet, getting regular exercise, and lowering stress levels. (2) Bilateral carotid artery stenosis: Code(s): I65.23 - Occlusion and stenosis of bilateral carotid arteries Category: Medical Plan: Continue with aspirin 81 mg daily, seen by Dr. Lei, who ordered a repeat bilateral ultrasound carotids in six-months (3) Dyslipidemia: Code(s): E78.5 - Hyperlipidemia, unspecified Category: Medical Plan: Continue atorvastatin 40 mg daily , in addition to adherence to low- cholesterol diet and regular exercise, at least 30 minutes 3 to 4 times a week. Advised patient to make healthy food choices, eat more fruits, vegetables, whole grains, wild caught fish and low-fat dairy. Limit amount of meat and fried or fatty food products, as well as processed foods and fast foods. Get fasting labs done, already ordered Medications: Refilled aspirin 81 mg PO DAILY 90 tabs 4RF
--- OUTSIDE RECORDS SUMMARY | 2025-01-03 14:40 | XMS_ITS | Encounter Summary ---
Author Organization [facility] Address [address] [place] [address] Care Team Providers Care Property Specialist Name Role Phone Chloe Garrison Md, MD Primary Care Provider Unavailable Reason for Visit * Reason Onset Date Comments refill request 10/07/2018 Encounter Details Date Type Department Care Team Description 10/07/2018 Refill Pulmonology - [address] [place] [id number] Dangelo Rankin MD refill request Social History [...] MED LIST AND IS IDENTIFIED BELOW): {MED LIST:[id number]) Med name: daliresp Dosage: 500mg # of tablets: Local pharmacy with request for 30 -day supply Instructions: Did you check the pharmacy information above?: YES Patients current [place] carrier[place]: [place] / Product Type: MEDICAREFEE-FOR-SERVICE documented in this encounter Plan of Treatment Not on file documented as of this encounter Visit Diagnoses Not on filedocumented in this encounter Care Teams Property Specialist Relationship Specialty Start Date End Date Chloe Garrison MD, MD PCP - General Internal Medicine 09/29/18 documented as of this encounter
--- OUTSIDE RECORDS SUMMARY | 2025-01-03 14:40 | XMS_ITS | Clinical Summary ---
Author Organization [facility] Address [address] [place] [address] Care Team Providers Care Cable Worker Helper Name Role Phone Unavailable Primary Care Provider [...]
--- OUTSIDE RECORDS SUMMARY | 2025-01-03 14:41 | XMS_ITS | Encounter Summary ---
Author Organization [facility] Address [address] [place] [address] Care Team Providers Care Consulting Networking Engineer Name Role Phone Chloe Garrison Md, MD Primary Care Provider Unavailable Encounter Details Date Type Department Care Team Description 07/15/2019 Release of Information Medical Records [address] [place] [address] Abstract, Provider Social History Tobacco Use Types [...] on filedocumented in this encounter Care Teams Consulting Networking Engineer Relationship Specialty Start Date End Date Chloe Garrison MD, MD PCP - General Internal Medicine 09/29/18 documented as of this encounter
--- OUTSIDE RECORDS SUMMARY | 2025-01-03 14:41 | XMS_ITS | Encounter Summary ---
Author Organization [facility] Address [address] [place] [address] Care Team Providers Care Pillowcase Folder Name Role Phone Pan Webster MD Primary Care Provider Chloe Clarke Md, MD Primary Care Provider Unavailable Reason for Visit * Reason Onset Date Comments Prior Authorization 01/23/2018 Encounter Details Date Type Department Care Team Description 01/23/2018 Telephone Pulmonology - [address] [place] [address] Pan Webster MD Prior Authorization [...] my meds. [place] p [id number] Prior Auth pool Alycia Garcia M.A. [facility] Prior Authorizations Ext 1957 * Telephone Encounter - Iris Gan - 01/23/2018 1:55 PM EDT Pre Authorization for Medication-do not complete and send this encounter unless you have the fax from the pharmacy. Is this a Cover My Meds request: Yes -- [place]man Code [id number] Name of Medication Dose of Medication How does patient take this med? What Pharmacy did the fax come from: [facility] Information from fax: What Prescription Plan does the patient have? BIN/PCN if applicable: Cardholder ID Person Code: Relationship Code: Help desk phone: documented in this encounter Plan of Treatment Not on file documented as of this encounter Visit Diagnoses Not on filedocumented in this encounter Care Teams Pillowcase Folder Relationship Specialty Start Date End Date Pan Webster MD PCP - General Internal Medicine 11/01/11 09/28/18 Chloe Garrison MD, PCP - General Internal Medicine 09/29/18 documented as of this encounter
--- OUTSIDE RECORDS SUMMARY | 2025-01-03 14:41 | XMS_ITS | Encounter Summary ---
Author Organization [facility] Address [address] [place] [address] Care Team Providers Care Specifications Writer Name Role Phone Pan Webster MD Primary Care Provider Chloe Clarke Md, MD Primary Care Provider Unavailable Reason for Visit * Reason Onset Date Comments Medication 01/23/2018 Encounter Details Date Type Department Care Team Description 01/23/2018 Telephone Pulmonology - [place] [address] [facility] [address] [place] [phone] Dangelo Rankin MD Medication Social History Tobacco Use Types Packs/Day Years Used Date Smoking Tobacco: Former Alcohol Use Standard Drinks/Week Comments Not Asked 0 (1 standard drink = 0.6 oz pur e alcohol) Sex Assigned at Date Recorded Not on file documented as of this encounter Miscellaneous Notes * Telephone Encounter - Kelin Leon M.A. - 01/29/2018 4:49 PM EDT Called pt trey to call office. * Telephone Encounter - Kelin Leon M.A. - 01/27/2018 4:11 PM EDT Called pttrey to call office. * Telephone Encounter - Annika Perez - 01/27/2018 10:13 AM EDT Pt returned call. He is requesting a call back @ [phone]. * Telephone Encounter - Kelin Leon M.A. - 01/26/2018 4:32 PM EDT Called Bertha,no answer no machine. * Telephone Encounter - Dangelo Rankin MD - 01/23/2018 9:57 AM EDT OK, stop medicine. Consider restarting 1/2 tab daily if he wants he feels better. * Telephone Encounter - Kelin Leon M.A. - 01/23/2018 9:34 AM EDT Forward to to advise. * Telephone Encounter - Annika Perez - 01/23/2018 9:21 AM EDT Who is calling? A nurse - bertha from [facility] Name of the medication DaliResp What is the specific problem or interaction? Making pt sick, sweating, stomach issues, ? An alternative med If the patient is having a problem with taking the med - how long has the problem been going on? Ptstopped taking medication documented in this encounter Plan of Treatment Not on file documented as of this encounter Visit Diagnoses Not on filedocumented in this encounter Care Teams Specifications Writer Relationship Specialty Start Date End Date Pan Webster MD PCP - General Internal Medicine 11/01/11 09/28/18 Chloe Garrison MD, MD PCP - General Internal Medicine 09/29/18 documented as of this encounter
--- OUTSIDE RECORDS SUMMARY | 2025-01-03 14:41 | XMS_ITS | Encounter Summary ---
Author Organization [facility] Address [address] [place] [address] Care Team Providers Care Employee Wellness/Fitness Coordinator Name Role Phone Pan Webster MD Primary Care Provider Chloe Clarke Md, MD Primary Care Provider Unavailable Reason for Visit * Reason Onset Date Comments Prior Authorization 01/28/2018 Encounter Details Date Type Department Care Team Description 01/28/2018 Telephone Pulmonology - [address] [place] [address] Dangelo Rankin MD Prior Authorization Social History Tobacco Use Types Packs/Day Years Used Date Smoking Tobacco: Former Alcohol Use Standard Drinks/Week Comments Not Asked 0 (1 standard drink = 0.6 oz pur e alcohol) Sex Assigned at Date Recorded Not on file documented as of this encounter Miscellaneous Notes * Telephone Encounter - Dangelo Rankin MD - 01/29/2018 4:57 PM EDT Ok will send incruse * Telephone Encounter - Kelin Leon M.A. - 01/29/2018 4:03 PM EDT Fax from [facility]-spiriva respimat was denied because pt has not tried 2 formulary alternatives.anoro and incruse. [facility] [phone] * Telephone Encounter - Alycia Garcia M.A. - 01/28/2018 12:04 PM EDT [facility] Med[facility] spiriva respimat Dx copd,chronic bronchitis, asthma Pt has been using the spiriva since 06/2017 per transfer records, they actually state pt has been on it but no actual starting date mentioned. Pt is also using daliresp,symbicort, and albuteral inhaler * Telephone Encounter - Iris Gan - 01/28/2018 9:56 AM EDT Pre Authorization for Medication-do not complete and send this encounter unless you have the fax from the pharmacy. Is this a Cover My Meds request: Yes -- [place] Code [id number] Name of Medication not on fax faxed to [place] prior auth Dose of Medication How does patient take this med? What Pharmacy did the fax come from: [facility] Information from fax: What Prescription Plan does the patient have? BIN/PCN if applicable: Cardholder ID Person Code: Relationship Code: Help desk phone: documented in this encounter Plan of Treatment Not on file documented as of this encounter Visit Diagnoses Not on filedocumented in this encounter Care Teams Employee Wellness/Fitness Coordinator Relationship Specialty Start Date End Date Pan Webster MD PCP - General Internal Medicine 11/01/11 09/28/18 Chloe Garrison MD, PCP - General Internal Medicine 09/29/18 documented as of this encounter
--- OUTSIDE RECORDS SUMMARY | 2025-01-03 14:41 | XMS_ITS | Patient Health Record ---
Author Organization [facility] Address [address] [place] [address] Care Team Providers Care Florist Name Role Phone Chloe Garrison MD Primary Care Provider Milton López [phone] Reason For Referral No Information Medications Medication [...] Problem Status W/U Status Risk Notes Problem [id number] Encounter for screening for malignant neoplasm of colon (Z12.11) Active confirmed Problem Screening for malignant neoplasm of rectum (680544960) Encounter for screening for malignant neoplasm of rectum (Z12.12) Active confirmed Problem 745655503 Long-term use of aspirin therapy (Z79.82) Active confirmed Plan Of Treatment Pending Test Test Name Order Date GI BIOPSY 03/04/2016 Future Test Test Name Order Date COLONOSCOPY 11/29/2015 Insurance Providers Payer Name Payer Address Payer Phone Subscriber Number Group Number Insured Name Patient Relationship to Insured Coverage Start Date Coverage End Date [facility] [address] [place] [address] [id number] AMARILIS PROCTOR Self - patient is the insured Medical (General) History Medical History History ICD Code NIDDM Hyperlipidemia Hypertension 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
== END 2025-01-03 13:52 | disposition home or self-care (01) ==
LOC: HO.HMCC 12:47
PROVIDERS: PCP Internal Medicine; Visit Provider Internal Medicine
DX: I10 Essential (primary) hypertension (principal); I65.23 Occlusion and stenosis of bilateral carotid arteries; E78.5 Hyperlipidemia, unspecified

== ENCOUNTER → 2025-01-03 12:47 | Outpatient (BNVA) | payer OTHER, SELFPAY | PROVIDERS: PCP Internal Medicine; Visit Provider Internal Medicine | DX: I10 Essential (primary) hypertension (principal); I65.23 Occlusion and stenosis of bilateral carotid arteries; E78.5 Hyperlipidemia, unspecified | CPT/HCPCS: 99212 ==

== ENCOUNTER 2025-01-04 06:26 | Outpatient (REF) | payer OTHER, SELFPAY ==
--- OUTSIDE RECORDS SUMMARY | 2025-01-04 06:29 | XMS_ITS | Clinical Summary ---
Author Organization [facility] Address [address] [place] [address] Care Team Providers Care Graduate Nurse Name Role Phone Unavailable Primary Care Provider [...]
--- OUTSIDE RECORDS SUMMARY | 2025-01-04 06:29 | XMS_ITS | Patient Health Record ---
Author Organization [facility] Address [address] [place] [address] Care Team Providers Care Controller Operations And Hr Manager Name Role Phone Chloe Garrison MD Primary Care Provider Milton López [phone] Reason For Referral No Information Medications Medication [...] Problem Status W/U Status Risk Notes Problem [id number] Encounter for screening for malignant neoplasm of colon (Z12.11) Active confirmed Problem Screening for malignant neoplasm of rectum (495816969) Encounter for screening for malignant neoplasm of rectum (Z12.12) Active confirmed Problem 252035249 Long-term use of aspirin therapy (Z79.82) Active confirmed Plan Of Treatment Pending Test Test Name Order Date GI BIOPSY 03/04/2016 Future Test Test Name Order Date COLONOSCOPY 11/29/2015 Insurance Providers Payer Name Payer Address Payer Phone Subscriber Number Group Number Insured Name Patient Relationship to Insured Coverage Start Date Coverage End Date [facility] [address] [place] [address] [id number] AMARILIS PROCTOR Self - patient is the insured Medical (General) History Medical History History ICD Code NIDDM Hyperlipidemia Hypertension 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
[2025-01-04 07:27] LABS: Estimated Average Glucose 160 mg/dL; Hemoglobin A1C 213.3152 umol/L; Hemoglobin A1c % 7.2 % (<6.0)
[2025-01-04 07:54] LABS: Alanine Aminotransferase 46 U/L (0-40); Anion Gap 14 (12-20); Aspartate Amino Transferase 40 U/L (5-37); Blood Urea Nitrogen 12 mg/dL (9-16); Calcium 10.3 mg/dL (8.4-10.2); Carbon Dioxide 26 mmol/L (22-29); Chloride 104 mmol/L (96-108); Cholesterol 177 mg/dL (<200); Estimated Glomerular Filt Rate > 60; Glucose Fasting 129 mg/dL (60-99); HDL Cholesterol 68 mg/dL (>40); LDL Cholesterol Calculated 90 mg/dL (<100); Potassium 4.5 mmol/L (3.3-5.1); Sodium 139 mmol/L (135-145); Triglycerides 98 mg/dL (<150)
[2025-01-04 08:10] LABS: Vitamin D 25-OH Total 30.1 ng/mL (>30)
[2025-01-04 08:14] LABS: Creatinine Urine 108.05 mg/dL; Microalbum/Creatinine Ratio Ur 56.4 ug/mg cr (<30)
== END 2025-01-04 06:27 | disposition home or self-care (01) ==
LOC: HO.LAB 06:26
PROVIDERS: PCP Internal Medicine; Visit Provider Internal Medicine
DX: E78.5 Hyperlipidemia, unspecified (principal); E11.9 Type 2 diabetes mellitus without complications; I10 Essential (primary) hypertension
CPT/HCPCS: 36415; 80048; 80061; 82043; 82306; 82570; 83036; 84450; 84460

== ENCOUNTER 2025-04-06 06:17 | Outpatient (REF) | payer OTHER, SELFPAY ==
--- OUTSIDE RECORDS SUMMARY | 2025-04-06 06:19 | XMS_ITS | Clinical Summary ---
Author Organization [facility] Address [address] [facility] [address] [place] [address] Care Team Providers Care Business Excellence Manager Name Role Phone Unavailable Primary Care Provider Unavailabl e Immunizations Immunization Administration Dates Next Due Pfizer Covid-19 Vaccine [...] FOBT 1965 Lipid Panel 1965 Sigmoidoscopy 1965 Disability Screening 1965 Alcohol/Substance Use Screening 1977 Tobacco Screening 1977 DTaP/Tdap/Td Vaccines (1 - Tdap) 02/08/1984 Pneumococcal Vaccine: 50+ Years (1 of 1 - PCV) 2015 Zoster Vaccines (1 of 2) 2015 COVID-19 Vaccine ( - season) 2024 10/08/2022, 08/23/2021, 11/30/2020, Additional history exists Influenza Vaccine (#1) 2025 RSV Patients and Patients Aged 60 years [...] patient's age to complete this topic Hepatitis B Vaccines Aged Out No long er eligible based on patient's age to complete this topic IPV Vaccines Aged Out No longer eligi ble based on patient's age to complete this topic Meningococcal B Vaccine Aged Out No l onger eligible based on patient's age to complete [...]
--- OUTSIDE RECORDS SUMMARY | 2025-04-06 06:19 | XMS_ITS | Patient Health Record ---
Author Organization [facility] Address [address] [place] [address] Care Team Providers Care Patient Transport Officer Name Role Phone Chloe Garrison MD Primary Care Provider Milton López [phone] Reason For Referral No Information Medications Medication [...] Problem Status W/U Status Risk Notes Problem [id number] Encounter for screening for malignant neoplasm of colon (Z12.11) Active confirmed Problem Screening for malignant neoplasm of rectum (219521231) Encounter for screening for malignant neoplasm of rectum (Z12.12) Active confirmed Problem 653641001 Long-term use of aspirin therapy (Z79.82) Active confirmed Plan Of Treatment Pending Test Test Name Order Date GI BIOPSY 03/04/2016 Future Test Test Name Order Date COLONOSCOPY 11/29/2015 Insurance Providers Payer Name Payer Address Payer Phone Subscriber Number Group Number Insured Name Patient Relationship to Insured Coverage Start Date Coverage End Date [facility] [address] [place] [address] [id number] AMARILIS PROCTOR Self - patient is the insured Medical (General) History Medical History History ICD Code NIDDM Hyperlipidemia Hypertension 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
[2025-04-06 07:41] LABS: Hemoglobin A1C 199.2156 umol/L; Total Hemoglobin (HGBA1C) 3844.9806 umol/L
[2025-04-06 08:10] LABS: Anion Gap 12 (12-20); Aspartate Amino Transferase 31 U/L (5-37); Blood Urea Nitrogen 20 mg/dL (9-16); Calcium 10.4 mg/dL (8.4-10.2); Carbon Dioxide 27 mmol/L (22-29); Chloride 106 mmol/L (96-108); Cholesterol 181 mg/dL (<200); Estimated Glomerular Filt Rate > 60; HDL Cholesterol 73 mg/dL (>40); Potassium 4.4 mmol/L (3.3-5.1); Sodium 141 mmol/L (135-145); Triglycerides 67 mg/dL (<150)
[2025-04-06 08:18] LABS: Alanine Aminotransferase 33 U/L (0-40)
== END 2025-04-06 06:18 | disposition home or self-care (01) ==
LOC: HO.LAB 06:17
PROVIDERS: PCP Internal Medicine; Visit Provider Internal Medicine
DX: I65.23 Occlusion and stenosis of bilateral carotid arteries (principal); E78.5 Hyperlipidemia, unspecified; I25.10 Atherosclerotic heart disease of native coronary artery without angina pectoris; I10 Essential (primary) hypertension; E11.9 Type 2 diabetes mellitus without complications
CPT/HCPCS: 36415; 80048; 80061; 83036; 84450; 84460

== ENCOUNTER 2025-04-14 15:21 | Outpatient (AMB) | payer OTHER, SELFPAY ==
--- OUTSIDE RECORDS SUMMARY | 2025-04-14 15:24 | XMS_ITS | Encounter Summary ---
Author Organization [facility] Address [address] [place] [address] Care Team Providers Care Vice President Biostatistics Name Role Phone Chloe Garrison Md, MD Primary Care Provider Unavailable Encounter Details Date Type Department Care Team Description 12/29/2018 Orders Only Medical Records [address] [place] [address] Abstract, Provider Simple chronic bronchitis (HCC); Chest pain, unspecified type; Obstructive sleep apnea syndrome in adult; Primary insomnia Social History Tobacco Use Types Packs/Day Years Used Date Smoking Tobacco: Former Smokeless Tobacco: Never Alcohol Use Standard Drinks/Week Comments Not Asked 0 (1 standard drink = 0.6 oz pur e alcohol) Sex Assigned at Date Recorded Not on file documented as of this encounter Plan of Treatment Not on file documented as of this encounter Procedures Procedure Name Priority Date/Time Associated Diagnosis Comments CHG RADEX RIBS UNI W/POSTEROANT CH MINIMUM 3 VIEWS Routine 12/28/2018 Simple chronic bronchitis (HCC) Chest pain, unspecified type Obstructive sleep apnea syndrome in adult Primary insomnia documented in this encounter Results * X-RAY EXAM OF RIBS, CHEST, ONE SIDE (12/28/2018) Dangelo Rankin MD RADIOLOGY documented in this encounter Visit Diagnoses Diagnosis Simple chronic bronchitis (HCC) Simple chronic bronchitis Chest pain, unspecified type Obstructive sleep apnea syndrome in adult Obstructive sleep apnea (adult) (pediatric) Primary insomnia Persistent disorder of initiating or maintaining sleep documented in this encounter Care Teams Vice President Biostatistics Relationship Specialty Start Date End Date Chloe Garrison MD, MD PCP - General Internal Medicine 09/29/18 documented as of this encounter
--- OUTSIDE RECORDS SUMMARY | 2025-04-14 15:24 | XMS_ITS | Patient Health Record ---
Author Organization [facility] Address [address] [place] [address] Care Team Providers Care Heavy Forger Name Role Phone Chloe Garrison MD Primary Care Provider Milton López [phone] Reason For Referral No Information Medications Medication [...] Problem Status W/U Status Risk Notes Problem [id number] Encounter for screening for malignant neoplasm of colon (Z12.11) Active confirmed Problem Encounter for screening for malignant neoplasm of rectum (Z12.12) Active confirmed Problem [id number] Long-term use of aspirin therapy (Z79.82) Active confirmed Plan Of Treatment Pending Test Test Name Order Date GI BIOPSY 03/04/2016 Future Test Test Name Order Date COLONOSCOPY 11/29/2015 Insurance Providers Payer Name Payer Address Payer Phone Subscriber Number Group Number Insured Name Patient Relationship to Insured Coverage Start Date Coverage End Date [facility] [address] [place] [phone] [id number] ESTHELA AMARILIS Self - patient is the insured Medical (General) History Medical History History ICD Code NIDDM Hyperlipidemia Hypertension 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
--- OUTSIDE RECORDS SUMMARY | 2025-04-14 15:24 | XMS_ITS | Clinical Summary ---
Author Organization [facility] Address [address] [place] [address] Care Team Providers Care Communications Specialist Name Role Phone Unavailable Primary Care Provider [...]
--- NOTE | 2025-04-14 15:36 | MHC.PC.OV ---
Vital Signs 04/14/25 15:37 04/14/25 16:04 Height 5 ft 6 in Weight 190 lb BMI 30.7 BP 160/100 H 140/100 H Blood Pressure Location Rt brachial Lt brachial Position Sitting Sitting Respiration 16 Pulse 81 Pulse Source Pulse Oximeter Temp 97.9 F Temp Source Oral Pulse Oximetry (%) 94 Oxygen Delivery Method Room Air Intake Visit Reasons: 3 months f/up- repeat A1C Intake Note: Pt is here for 3 month folloew up DM . 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 Accompanied by: Self / Same As Patient Allergies No Known Allergies Allergy (Verified 04/14/25 15:36) Medication List - Last Reconciled 04/14/25 by Chloe Garrison MD acetaminophen ER (Tylenol Arthritis Pain) 650 mg PO Q12H PRN albuterol sulfate 2.5 mg (3 mL) inhalation Q6H PRN albuterol sulfate 90 mcg/actuation (Ventolin HFA) 2 puffs PO Q4H PRN atorvastatin 40 mg PO BEDTIME blood sugar diagnostic As directed blood sugar diagnostic (FreeStyle Lite Strips) check blood sugar once a day AC budesonide-formoterol 160-4.5 mcg/actuation (Symbicort) 2 puffs PO BID lisinopril 40 mg PO DAILY 90 days metformin 1,000 mg PO BID nebulizers As directed omeprazole 20 mg PO DAILY PRN umeclidinium 62.5 mcg/actuation (Incruse Ellipta) 1 inh PO DAILY zolpidem 10 mg PO BEDTIME PRN 30 days Tobacco use date assessed: 04/14/25 Dental Screening Dental Screen Date: 04/14/25 Did you have a dental visit in the last 12 months?: Yes Did you have a dental problem in the last 6 months where you did not have access to dental care?: No Was dental information given to patient?: Patient has dentist HPI 3 months f/up- repeat A1C HPI Details - 60-year-old male here today for his follow-up visit. - Hypertension: Blood pressure elevated on today's visit. Patient states that he has been taking his medications but just drinking his coffee just before coming in for his appointment. He is currently on lisinopril 40 mg daily - Medication history includes lisinopril 40 mg daily, but does not had his nifedipine prescription filled for several months now. Denies any chest pain, no headache or shortness of breath, no lightheadedness - Type 2 Diabetes Mellitus: The patient's diabetes control has improved from 7.2% to 6.7%, he goes to [facility] for his diabetes retinopathy screening - Hyperlipidemia: recent fasting lipids are within normal limits. - Gastroesophageal Reflux Disease: Takes omeprazole only as needed for heartburn symptoms. - Asthma: Managed with an inhaler and albuterol as needed. - Osteoarthritis: The patient uses Tylenol for arthritis pain and has been prescribed diclofenac gel for knee pain, to be used as needed. [facility] Medical History Diverticulosis Hx of adenomatous polyp of colon COPD exacerbation Influenza Elevated parathyroid hormone Skin tags, multiple acquired Tubular adenoma of colon Fatigue Trimalleolar fracture of left ankle Primary insomnia GERD (gastroesophageal reflux disease) Cervical radiculopathy due to degenerative joint disease of spine Obstructive sleep apnea Dyslipidemia Compression fracture of lumbar spine, non-traumatic COPD (chronic obstructive pulmonary disease) Pulmonary nodule seen on imaging study Coronary artery disease Type 2 diabetes mellitus without complication, without long-term current use of insulin Essential hypertension Surgical History Hx of colonoscopy Status post open reduction and internal fixation (ORIF) of fracture History of surgery Family History Father ETOH abuse Mother CVD (cardiovascular disease) Hx of CABG Brother No problems noted. Brother No problems noted. Sister No problems noted. Sister No problems noted. Sister No problems noted. Sister No problems noted. Sister No problems noted. Son No problems noted. Son No problems noted. Son No problems noted. Son No problems noted. Son No problems noted. 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 1. Little interest or pleasure in doing things: not at all 2. Feeling down, depressed, or hopeless: not at all 3. Trouble falling or staying asleep, or sleeping too much: not at all 4. Feeling tired or having little energy: not at all 5. Poor appetite or overeating: not at all 6. Feeling bad about yourself - or that you are a failure or have let yourself or your family down: not at all 7. Trouble concentrating on things, such as reading the newspaper or watching television: not at all 8. Moving or speaking so slowly that other people could have noticed. Or the opposite - being so fidgety or restless that you have been moving around a lot more than usual: not at all 9. Thoughts that you would be better off or of hurting yourself in some way: not at all Total score: 0 Depression Screening Interpretation: Negative Depression Screening Done: Yes 11067 - PHQ-9 Billing: Yes Source: Developed by Drs. Milton Tracy, Loraine Jose, Donnell Causey and colleagues, with an educational paulino from [employer]. Thrive Questionnaire Date Thrive assessed: 04/14/25 I am a: Patient What is your living situation today?: I have a steady place to live THRIVE Score: 0 SHIRA-7 AMB Questionnaire SHIRA-7 Date SHIRA - 7 assessed: 04/14/25 Feeling nervous, anxious, or on edge: 0 = Not at all Not being able to stop or control worryin = Not at all Worrying too much about different things: 0 = Not at all Trouble relaxin = Not at all Being so restless that it is hard to sit still: 0 = Not at all Becoming easily annoyed or irritable: 0 = Not at all Feeling afraid as if something awful might happen: 0 = Not at all Total SHIRA-7 score (0-4 normal; 5-9 mild; 10-14 moderate; 15-21 severe): 0 Source: Developed by Drs. Milton Tracy, Loraine Jose, Donnell Causey and colleagues, with an educational paulino from [employer]. SHIRA-7 Assessment Billing SHIRA-7 Assessment Tool: SHIRA-7 Assessment 44702 Review of Systems Const Reports no additional complaints Eyes Details: [facility] Denies change in vision ENT Reports no additional complaints and Reports Normal hearing present Card Denies chest pain, Denies chest pain at rest, Denies chest pain with activity, Denies pedal edema and Denies dyspnea Resp Denies cough and Denies dyspnea GI Denies abdominal pain Reports no additional complaints Musc Denies abnormal gait, Reports arthralgias (knee), Denies joint swelling, Denies muscle cramps and Denies radiating pain into limb Skin/Breast Denies skin ulcer and Denies wounds Neuro Reports Normal hearing present, Denies abnormal gait and Denies Sensory deficit (Neuro) Psych Reports no additional complaints Endo Reports no additional complaints Hu/Lymph Reports no additional complaints Aller/Immun Reports no additional complaints Physical exam (Primary Care) Vital Signs: Last Vital Signs Temp 97.9 F 04/14/25 15:37 Pulse 81 04/14/25 15:37 Resp 16 04/14/25 15:37 BP 140/100 H 04/14/25 16:04 Pulse Ox 94 04/14/25 15:37 Oxygen Delivery Method Room Air 04/14/25 15:37 BMI result Body Mass Index 30.7 Tobacco/Smoking Status: Tobacco use Status Tobacco use date assessed 04/14/25 04/14/25 15:44 Patient Tobacco Use Status Former Tobacco user 04/14/25 15:44 e-Cigarette/Vaping Use Never Used 04/14/25 15:44 PHQ-9: PHQ-9 Score PHQ-9: Total score 0 04/16/25 04:19 Depression Screening Interpretation: Negative Thrive Assessment: Date of Thrive Assessment Date Thrive assessed 04/14/25 04/14/25 15:44 Const General: cooperative and no acute distress Nutritional Appearance: overweight Orientation/consciousness: patient oriented x3 HENMT Head: Yes normocephalic Ears: external ears normal General nose exam: Normal external nose present Mouth: moist mucous membranes Eyes General: appearance normal, both eyes and all related structures Neck Neck: Yes full ROM Resp Effort & Inspection: normal respiratory effort and able to speak in complete sentences Auscultation: clear to auscultation bilaterally Cardio Heart sounds: S1 normal heart sound present and S2 normal heart sound present GI Inspection: Yes Abdominal panniculus present and Yes obesity Palpation (GI): Soft to palpation and nontender Auscultation: normal bowel sounds Skin General skin exam: dry skin and ecchymosis Rashes: no rashes Neuro General: patient oriented x3, gait normal and moves all extremities Cranial nerves: Yes Normal hearing present Motor exam (neuro): 5/5 motor strength present throughout Sensory Exam: No Sensory deficit (Neuro) Extrem General: Yes full ROM, Yes no joint enlargement, Yes no pedal edema and Yes normal gait Psych Speech and movement: Normal speech and movement present Results AMB Hemoglobin A1c AMB Hemoglobin A1c 6.7 % Last Edit by Shala Singh MA on 04/14/25 15:54 Results Reviewed Results Reviewed: Laboratory Last Values Hgb A1c (Clinic) 6.7 % (4.0-6.0) H 04/14/25 15:48 Laboratory Tests 01/04/25 04/06/25 04/14/25 06:30 06:35 15:48 Estimat Average Glucose 151 Hgb A1c (Clinic) 6.7 H Hemoglobin A1c % 6.9 H Urine Creatinine 108.05 Urine Microalbumin 61.0 Microalb/Creat Ratio 56.4 H bertram: SuarezTrey Holliday Age/Sex: 60/M : 1965 Unit#: [id number] Attend Dr: Chloe Garrison MD Re04/06/25 Status: DEP REF [facility] Disch: SPEC : [id number] NAVEED: 04/06/25 STATUS: COMP REQ : [id number] RECD: 04/06/[address]: Chloe Garrison MD COMP: 04/06/25 ENTERED: 04/06/[address]: ORDERED: Met Prof Fast, AST, ALT, Lipid Panel Test Result Flag Reference Sodium 141 135-145 mmol/L Potassium 4.4 3.3-5.1 mmol/L CL 106 96-108 mmol/L CO2 27 22-29 mmol/L Gap 12 12-20 BUN 20 H 9-16 mg/dL Creat 1.08 0.5-1.4 mg/dL eGFR > 60 Chronic Kidney Disease: Estimated GFR < 60 mL/min/1.73m2 Severe Kidney Disease: Estimated GFR < 15 mL/min/1.73m2 FBS 111 H 60-99 mg/dL A fasting glucose from 100-125 mg/dl is considered impaired (pre-diabetes). CA 10.4 H 8.4-10.2 mg/dL AST (GOT) 31 5-37 U/L ALT (GPT) 33 0-40 U/L Triglyceride 67 <150 mg/dL Desirable Triglyceride: less than 150 mg/dL Borderline High Triglyceride 150-199 mg/dL High Triglyceride: 200-499 mg/dL Very High Triglyceride: greater than or equal to 5OO mg/dL Cholesterol 181 <200 mg/dL Desirable Cholesterol: less than 200 mg/dL Borderline High Cholesterol: 200-239 mg/dL High Cholesterol: greater than 239 mg/dL LDL Calculated 95 <100 mg/dL Desirable LDL: less than 100 mg/dL Near Optimal/Above Optimal LDL: 110-129 mg/dL Borderline High LDL: 130-159 mg/dL High LDL: 160-189 mg/dL Very High LDL: greater than or equal to 190 mg/dL HDL 73 >40 mg/dL Desirable HDL: greater than 40 mg/dL Note: This HDL assay may give artificially low results in patients with liver disease. Coding Level of Care Code Est Pt Level 4 (64743) Diagnoses Essential hypertension I10 Dyslipidemia E78.5 Type 2 diabetes mellitus without complication, without long-term current use of insulin E11.9 Knee pain M25.569 Additional Codes SHIRA-7 Assessment Billing - SHIRA-7 Assessment Tool: SHIRA-7 Assessment 09551 ([id number]) PHQ-9 - 12089 - PHQ-9 Billing: Yes ([id number]) Assessment & Plan Assessment & Plan (1) Essential hypertension: Code(s): I10 - Essential (primary) hypertension Category: Medical (2) Dyslipidemia: Code(s): E78.5 - Hyperlipidemia, unspecified Category: Medical (3) Type 2 diabetes mellitus without complication, without long-term current use of insulin: Comment: sees Dr Posadas Code(s): E11.9 - Type 2 diabetes mellitus without complications Category: Medical (4) Knee pain: Code(s): M25.569 - Pain in unspecified knee Plan The patient will continue lisinopril 40 mg in the morning and start amlodipine 5 mg at night to better manage hypertension. Blood pressure will be re-evaluated in two weeks with a nurse visit to ensure the new regimen's effectiveness. For diabetes management, the patient will maintain current medication and lifestyle adjustments, as recent lab results show improved glycemic control. The patient is advised to continue using omeprazole as needed for gastroesophageal reflux disease and to use the inhaler and albuterol for asthma management. For osteoarthritis, diclofenac gel is prescribed for knee pain, to be applied as needed, with a follow-up plan to refer to a specialist if symptoms persist. Patient was informed and verbally consented to the use of an ambient scribe for clinic note documentation during this visit. Orders: Orders AMB Hemoglobin A1c 04/14/25 Z13.9 - Encounter for screening, unspecified Medications: New amlodipine Take with supper 5 mg PO DAILY 90 tabs 1RF NS I10 - Essential (primary) hypertension diclofenac sodium 1% apply to single knee 4 grams topical QID PRN 100 grams 0RF knee pain Refilled omeprazole 20 mg PO DAILY PRN 90 caps 1RF heartburn
[2025-04-14 15:37] VITALS: BP 160/100; PULSE 81; RESP 16; TEMP 36.6; O2SAT 94; BMI 30.7
[2025-04-14 16:04] VITALS: BP 140/100
== END 2025-04-14 16:17 | disposition home or self-care (01) ==
LOC: HO.HMCC 15:22
PROVIDERS: PCP Internal Medicine; Visit Provider Internal Medicine
DX: Z13.9 Encounter for screening, unspecified (principal)

== ENCOUNTER → 2025-04-14 15:21 | Outpatient (BNVA) | payer OTHER, SELFPAY | PROVIDERS: PCP Internal Medicine; Visit Provider Internal Medicine | DX: I10 Essential (primary) hypertension (principal); E78.5 Hyperlipidemia, unspecified; E11.9 Type 2 diabetes mellitus without complications; K21.9 Gastro-esophageal reflux disease without esophagitis; J45.909 Unspecified asthma, uncomplicated; M19.90 Unspecified osteoarthritis, unspecified site; Z79.899 Other long term (current) drug therapy; Z13.31 Encounter for screening for depression; Z13.39 Encounter for screening examination for other mental health and behavioral disorders | CPT/HCPCS: 83036; 96127; 99212 ==

== ENCOUNTER 2025-04-21 13:07 | Outpatient (AMB) | payer OTHER, SELFPAY ==
[2025-04-21 13:11] VITALS: BP 110/64; PULSE 75; O2SAT 97; BMI 30.4
--- NOTE | 2025-04-21 13:11 | A.OFFVIS_ITS ---
Vital Signs 04/21/25 13:11 Height 5 ft 6 in Weight 188 lb 7.924 oz BMI 30.4 BP 110/64 Blood Pressure Location Lt brachial Position Sitting Pulse 75 Pulse Source Pulse Oximeter Pulse Oximetry (%) 97 Oxygen Delivery Method Room Air Intake Visit Reasons: COPD Allergies No Known Allergies Allergy (Verified 04/21/25 13:13) HPI Comments Details: The patient is a 60 y/o man with a history of COPD in addition to ongoing chest discomfort. Back in December he started complaining of significant pleuritic discomfort at the chest left chest. Ultimately had a chest x-ray and also a x- ray the ribs which was relatively normal except for some scoliosis. He continues uses inhalers with with good effect. Denies any wheezing or significant coughing at this time. However, he is having still significant left-sided pleuritic discomfort. Sometimes it can be as severe as 7 or 8/10. The episodes are intermittent. At this point the patient is concerned with what with this pain could be. Therefore we will re-evaluate discomfort. Will probably have to repeat the chest x-ray since he had 1 in December but if no answers to have to get a CT scan to further address his chest discomfort. We did review his CT scan of the chest that he had back in 2016 demonstrating healed fracture on the left side but also he also has small pulmonary nodules. These nodules need follow-up. He did have a CT scan of the chest that we personally reviewed here in the office suggesting very small 2-3 mm pulmonary nodules. At this point the patient will need a follow up in a year's time. If the nodules are no different than we can stop following them. His lung parenchyma appeared to be very healthy. He continues to use Ambien for sleep. Denies any retrograde amnesia or any side effects of the medication. He does try to take breaks or medication holidays. 04/23/2024 the patient is here for pulmonary follow-up visit. Overall the patient is doing well. He continues uses inhalers as prescribed. He does need a refill on his nebulized solution. I will send to the pharmacy. The patient had addition to that has been using the Ambien for sleep with good effect. He does get a full night's sleep. He does take breaks from the medication to minimize on the adverse effects. He stop taking the Daliresp at this time. Will hold off on the therapy unless he starts developing worsening symptoms. The patient has been exercising regularly. We did review his last CT scan from March 2023 demonstrating stable pulmonary nodules without any significant changes. Therefore no additional CT scans are need to be ordered at this time. Will have follow-up in a year's time and at that point we will decide if additional imaging studies will be warranted. 04/21/2025 the patient is here for pulmonary follow-up visit. Overall he is doing okay. He feels like he is getting more tired lately his appetite is decreased and he has lost some weight. He is following now closely with endocrinology in the assessing him for thyroid disease. Indeed if he has some underlying hypothyroidism this could explain a lot of his symptoms. As far as from a pulmonary standpoint he continues uses respiratory medications as prescribed. His last CT scan was last year demonstrating stable pulmonary nodules. He did nodules have been stable for more than 3 years so therefore they have not been followed further. If however the patient continues to be symptomatic with an unclear source, it will be reasonable to repeat the CAT scan. Therefore have him come back in 6 months so we can reassess. He is no longer using the Ambien which is it. He does try to sleep with the any prescription medications at this time. [facility] Medical History Diverticulosis Hx of adenomatous polyp of colon COPD exacerbation Influenza Elevated parathyroid hormone Skin tags, multiple acquired Tubular adenoma of colon Fatigue Trimalleolar fracture of left ankle Primary insomnia GERD (gastroesophageal reflux disease) Cervical radiculopathy due to degenerative joint disease of spine Obstructive sleep apnea Dyslipidemia Compression fracture of lumbar spine, non-traumatic COPD (chronic obstructive pulmonary disease) Pulmonary nodule seen on imaging study Coronary artery disease Type 2 diabetes mellitus without complication, without long-term current use of insulin Essential hypertension Surgical History Hx of colonoscopy Status post open reduction and internal fixation (ORIF) of fracture History of surgery Family History Father ETOH abuse Mother CVD (cardiovascular disease) Hx of CABG Brother No problems noted. Brother No problems noted. Sister No problems noted. Sister No problems noted. Sister No problems noted. Sister No problems noted. Sister No problems noted. Son No problems noted. Son No problems noted. Son No problems noted. Son No problems noted. Son No problems noted. 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 Cognitive needs: No Hearing needs: No Vision needs: No Review of Systems Const Denies body aches, Denies fever(s), Denies headache(s), Denies night sweats and Denies poor appetite ENT Reports Normal hearing present, Denies dizziness, Denies dry mouth, Denies headache(s), Reports nasal congestion, Reports nasal discharge and Denies sore throat Card Denies chest pain, Denies irregular heart rhythm, Denies lightheadedness and Denies dyspnea on exertion (Unchanged) Resp Reports cough and Denies dyspnea on exertion (Unchanged) GI Denies abdominal pain, Denies melena, Denies bloating, Denies hematochezia, Denies change in bowel habits, Denies heartburn and Denies nausea Denies hematuria and Denies difficulty urinating Musc Reports no additional complaints Skin/Breast Denies rash Neuro Reports Normal hearing present, Denies Neuro-related abnormal movements, Denies burning sensations, Denies dizziness, Denies headache(s) and Denies Sensory deficit (Neuro) Psych Reports no additional complaints Endo Denies polyphagia, Denies polydipsia and Denies polyuria Hu/Lymph Denies easy bleeding and Denies lymphadenopathy Aller/Immun Reports no additional complaints Physical Exam Vital Signs: Last Vital Signs Pulse 75 04/21/25 13:11 BP 110/64 04/21/25 13:11 Pulse Ox 97 04/21/25 13:11 Oxygen Delivery Method Room Air 04/21/25 13:11 BMI result Body Mass Index 30.4 Const General: cooperative and no acute distress Orientation/consciousness: patient oriented x3 Neck Neck: Yes supple Chest Chest palpation & inspection: normal inspection of the chest Resp Effort & Inspection: normal respiratory effort and able to speak in complete sentences Auscultation: no rhonchi, no wheezes and diminished lung sounds Cardio Rate: regular rate Peripheral pulses: Peripheral pulses 2+ throughout GI Palpation (GI): Soft to palpation Skin Lesions: no lesions Rashes: no rashes Neuro General: patient oriented x3 Cranial nerves: Yes Normal hearing present Sensory Exam: No Sensory deficit (Neuro) Extrem Other: Right shoulder: Normal to inspection. No ecchymosis, erythema, or edema. Full shoulder ROM in all planes. Negative cross-body reach. Negative empty can. Negative drop arm. NVI. Psych Mental Status: mental status grossly normal Assessment & Plan Assessment & Plan (1) COPD (chronic obstructive pulmonary disease): Comment: ff'd by Dr Dangelo Joseph Code(s): J44.9 - Chronic obstructive pulmonary disease, unspecified Category: Medical Qualifiers: COPD type: chronic bronchitis Chronic bronchitis type: simple Qualified Code(s): J41.0 - Simple chronic bronchitis (2) Pulmonary nodules: Code(s): R91.8 - Other nonspecific abnormal finding of lung field Category: Medical (3) Insomnia: Code(s): G47.00 - Insomnia, unspecified Category: Medical Qualifiers: Insomnia type: primary Qualified Code(s): F51.01 - Primary insomnia (4) GERD (gastroesophageal reflux disease): Code(s): K21.9 - Gastro-esophageal reflux disease without esophagitis Category: Medical Qualifiers: Esophagitis presence: without esophagitis Qualified Code(s): K21.9 - Gastro-esophageal reflux disease without esophagitis Plan Continue current respiratory therapy: symbicort and Incruse LEI as needed Ambien as needed, stopped No need for serial CT chest. We will reassess next visit F/U 6 months or sooner if new issues arise Coding Level of Care Code Est Pt Level 4 (84679) Complex EM visit Add On G2211 Diagnoses Simple chronic bronchitis J41.0 COPD type: chronic bronchitis Chronic bronchitis type: simple Pulmonary nodules R91.8 Primary insomnia F51.01 Insomnia type: primary Gastroesophageal reflux disease without esophagitis K21.9 Esophagitis presence: without esophagitis Time Spent (min) 17
--- OUTSIDE RECORDS SUMMARY | 2025-04-21 13:20 | XMS_ITS | Patient Health Record ---
Author Organization [facility] Address [address] [place] [address] Care Team Providers Care Logger All Round Name Role Phone Chloe Garrison MD Primary Care Provider Miltno López [phone] Reason For Referral No Information Medications Medication [...] Problem Status W/U Status Risk Notes Problem [id number] Encounter for screening for malignant neoplasm of colon (Z12.11) Active confirmed Problem Encounter for screening for malignant neoplasm of rectum (Z12.12) Active confirmed Problem [id number] Long-term use of aspirin therapy (Z79.82) Active confirmed Plan Of Treatment Pending Test Test Name Order Date GI BIOPSY 03/04/2016 Future Test Test Name Order Date COLONOSCOPY 11/29/2015 Insurance Providers Payer Name Payer Address Payer Phone Subscriber Number Group Number Insured Name Patient Relationship to Insured Coverage Start Date Coverage End Date [facility] [address] [place] [address] [id number] ESTHELA AMARILIS Self - patient is the insured Medical (General) History Medical History History ICD Code NIDDM Hyperlipidemia Hypertension 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
--- OUTSIDE RECORDS SUMMARY | 2025-04-21 13:20 | XMS_ITS | Clinical Summary ---
Author Organization [facility] Address [address] [facility] [address] [place] [address] Care Team Providers Care Top Stop Attacher Name Role Phone Unavailable Primary Care Provider [...]
== END 2025-04-21 13:42 | disposition home or self-care (01) ==
LOC: HO.HPS 13:08
PROVIDERS: PCP Internal Medicine; Visit Provider Hospitalist
DX: J41.0 Simple chronic bronchitis (principal); R91.8 Other nonspecific abnormal finding of lung field; F51.01 Primary insomnia; K21.9 Gastro-esophageal reflux disease without esophagitis
CPT/HCPCS: 99214; G2211

== ENCOUNTER → 2025-04-21 13:07 | Outpatient (BNVA) | payer OTHER, SELFPAY | PROVIDERS: PCP Internal Medicine; Visit Provider Hospitalist | DX: J41.0 Simple chronic bronchitis (principal); M41.9 Scoliosis, unspecified; R91.8 Other nonspecific abnormal finding of lung field; F51.01 Primary insomnia; K21.9 Gastro-esophageal reflux disease without esophagitis | CPT/HCPCS: 99212 ==

== ENCOUNTER 2025-06-20 09:26 | Outpatient (REF) | payer OTHER, SELFPAY ==
--- NOTE | ~2025-06-20 | US_ITS ---
CLINICAL HISTORY: I65.23 - Occlusion and stenosis of bilateral carotid arteries US bilateral carotid duplex Comparison: None Provided Findings: Waveforms demonstrate normal pattern. Peak systolic velocities: Right CCA: 111 cm/s Right ICA: 122 cm/s ICA/CCA ratio: 1.1 Right ECA: Unremarkable Right vertebral artery flow antegrade. Mild plaque noted. Left CCA: 106 cm/s Left ICA: 104 cm/s ICA/CCA ratio: 1.0 Left ECA: Unremarkable Left vertebral artery flow antegrade. Mild plaque noted. Impression: No significant velocity altering stenosis This document has been electronically signed by: Dre Schwartz MD on 06/20/2025 21:13:25
--- OUTSIDE RECORDS SUMMARY | 2025-06-20 10:12 | XMS_ITS | Clinical Summary ---
Author Organization [facility] Address [address] [facility] [address] [place] [address] Care Team Providers Care Fittings Tightener Name Role Phone Unavailable Primary Care Provider [...] 2) 2015 COVID-19 Vaccine ( - season) 2025 10/08/2022, 08/23/2021, 11/30/2020, Additional history exists Influenza [...]
--- OUTSIDE RECORDS SUMMARY | 2025-06-20 10:12 | XMS_ITS | Patient Health Record ---
Author Organization [facility] Address [address] [place] [address] Care Team Providers Care Math Specialist Name Role Phone Chloe Garrison MD Primary Care Provider Milton López [phone] Reason For Referral No Information Medications Medication [...] Problem Status W/U Status Risk Notes Problem [id number] Encounter for screening for malignant neoplasm of colon (Z12.11) Active confirmed Problem Screening for malignant neoplasm of rectum (625816169) Encounter for screening for malignant neoplasm of rectum (Z12.12) Active confirmed Problem [id number] Long-term use of aspirin therapy (Z79.82) Active confirmed Plan Of Treatment Pending Test Test Name Order Date GI BIOPSY 03/04/2016 Future Test Test Name Order Date COLONOSCOPY 11/29/2015 Insurance Providers Payer Name Payer Address Payer Phone Subscriber Number Group Number Insured Name Patient Relationship to Insured Coverage Start Date Coverage End Date [facility] [address] [place] [address] [id number] AMARILIS PROCTOR Self - patient is the insured Medical (General) History Medical History History ICD Code NIDDM Hyperlipidemia Hypertension 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
== END 2025-06-20 09:27 | disposition home or self-care (01) ==
LOC: HO.US 09:26
PROVIDERS: PCP Internal Medicine; Visit Provider Surgery Vascular Surgery
DX: I65.23 Occlusion and stenosis of bilateral carotid arteries (principal)
CPT/HCPCS: 93880

== ENCOUNTER → 2025-06-20 09:27 | Outpatient (BNV) | payer OTHER, SELFPAY | PROVIDERS: PCP Internal Medicine; Visit Provider Radiology Diagnostic Radiology | DX: I65.23 Occlusion and stenosis of bilateral carotid arteries (principal) | CPT/HCPCS: 93880 ==

== ENCOUNTER 2025-07-28 13:04 | Outpatient (AMB) | payer OTHER, SELFPAY ==
--- NOTE | 2025-07-28 13:07 | MHC.OFFVIS ---
Intake Visit Reasons: 6m follow up Carotid US 06/20/25 Intake Note: Patient presents for carotid US 06/20/25. Patient has no complaints. 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 He originally presented to the emergency room back in November of this year with uncontrolled hypertension. At that time had a workup and there was concern of some vertebral disease and his carotids. Since that time his hypertension has been better controlled he has had no recurrent events of this. He now presents for carotid surveillance follow-up. [facility] Medical History Diverticulosis Hx of adenomatous polyp of colon COPD exacerbation Influenza Elevated parathyroid hormone Skin tags, multiple acquired Tubular adenoma of colon Fatigue Trimalleolar fracture of left ankle Primary insomnia GERD (gastroesophageal reflux disease) Cervical radiculopathy due to degenerative joint disease of spine Obstructive sleep apnea Dyslipidemia Compression fracture of lumbar spine, non-traumatic COPD (chronic obstructive pulmonary disease) Pulmonary nodule seen on imaging study Coronary artery disease Type 2 diabetes mellitus without complication, without long-term current use of insulin Essential hypertension Surgical History Hx of colonoscopy Status post open reduction and internal fixation (ORIF) of fracture History of surgery Family History Father ETOH abuse Mother CVD (cardiovascular disease) Hx of CABG Brother No problems noted. Brother No problems noted. Sister No problems noted. Sister No problems noted. Sister No problems noted. Sister No problems noted. Sister No problems noted. Son No problems noted. Son No problems noted. Son No problems noted. Son No problems noted. Son No problems noted. 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 Cognitive needs: No Hearing needs: No Vision needs: No Review of Systems Const All systems reviewed & are unremarkable except as noted in HPI and below Reports no additional complaints ENT Reports Normal hearing present Card Denies chest pain, Denies chest pain at rest, Denies chest pain with activity and Denies pedal edema Resp Denies cough GI Denies abdominal pain Musc Denies abnormal gait, Denies muscle cramps and Denies radiating pain into limb Skin/Breast Denies skin ulcer and Denies wounds Neuro Reports Normal hearing present and Denies abnormal gait Psych Reports no additional complaints Physical Exam Const General: cooperative, healthy appearing and comfortable Orientation/consciousness: oriented to person, oriented to place and oriented to time HEENT Head: Yes normal to inspection Neck Neck: Yes normal visual inspection Carotids: no bruits Chest Chest palpation & inspection: normal inspection of the chest Resp Effort & Inspection: normal respiratory effort and able to speak in complete sentences Auscultation: clear to auscultation bilaterally, no crackles, no rales, no rhonchi and no wheezes Cardio Rate: regular rate Rhythm: regular rhythm Heart sounds: S1 normal heart sound present and S2 normal heart sound present Bruits: no carotid bruits Peripheral pulses: Peripheral pulses 2+ throughout GI Inspection: Yes normal to inspection Skin Wounds: no wounds Hair: normal Neuro General: oriented to person, oriented to place and oriented to time Cranial nerves: Yes CN's II-XII intact bilaterally and Yes Normal hearing present Cognition (Neuro): normal cognition Motor exam (neuro): 5/5 motor strength present throughout Extrem Other: venous exam: No significant superficial varicosities or spider telangiectasias, minimal edema General: No clubbing, No cyanosis and No edema Psych Appearance: grossly normal Mental Status: mental status grossly normal Speech and movement: Normal speech and movement present Results Reviewed Results Reviewed: Carotid ultrasound dated 06/20/2025 demonstrates bilateral 0-49% stenosis. Written report and images were reviewed. Assessment & Plan Assessment & Plan (1) Bilateral carotid artery stenosis: Code(s): I65.23 - Occlusion and stenosis of bilateral carotid arteries Category: Medical Plan: In short patient has stable carotid disease. I do not think that this was contributory to his overall headaches in December. At the current time patient is stable from a vascular perspective. He will follow up with us on an as-needed basis. Thank you for allowing us to assist in his care. Coding Level of Care Code Est Pt Level 4 (82719) Diagnoses Bilateral carotid artery stenosis I65.23
--- OUTSIDE RECORDS SUMMARY | 2025-07-28 15:58 | XMS_ITS | Clinical Summary ---
Author Organization [facility] [employer] [facility] Address [address] [facility] [address] [place] [address] Care Team Providers Care Plasterer Maintenance Name Role Phone Unavailable Primary Care Provider [...]
== END 2025-07-28 13:39 | disposition home or self-care (01) ==
LOC: HO.HVS 13:05
PROVIDERS: PCP Internal Medicine; Visit Provider Surgery Vascular Surgery
DX: I65.23 Occlusion and stenosis of bilateral carotid arteries (principal)
CPT/HCPCS: 99214

== ENCOUNTER → 2025-07-28 13:04 | Outpatient (BNVA) | payer OTHER, SELFPAY | PROVIDERS: PCP Internal Medicine; Visit Provider Surgery Vascular Surgery | DX: I65.23 Occlusion and stenosis of bilateral carotid arteries (principal) | CPT/HCPCS: 99212 ==